=== PATIENT | female | born 1950 | race Caucasian/White ===

== ENCOUNTER 2020-03-09 09:52 | Outpatient (REF) | payer MEDICARE, SELFPAY ==
[2020-03-09 10:34] LABS: MANUAL DIFF FLAG NO
[2020-03-09 11:04] LABS: Alanine Aminotransferase 11 U/L (0-31); Albumin Level 3.6 g/dL (3.5-5.0); Alkaline Phosphatase 82 U/L (39-117); Anion Gap 12 (12-20); Aspartate Amino Transferase 17 U/L (5-31); Bilirubin Total 0.6 mg/dL (0.0-1.0); Blood Urea Nitrogen 16 mg/dL (9-16); Calcium 8.8 mg/dL (8.4-10.2); Carbon Dioxide 29 mmol/L (22-29); Chloride 107 mmol/L (96-108); Cholesterol 164 mg/dL; Estimated Glomerular Filt Rate > 60; Glucose Fasting 94 mg/dL (60-99); HDL Cholesterol 46 mg/dL; LDL Cholesterol Calculated 94 mg/dl; Potassium 4.6 mmol/l (3.3-5.1); Sodium 143 mmol/L (135-145); Total Protein 6.1 g/dL (6.5-8.0); Triglycerides 120 mg/dL
[2020-03-09 11:05] LABS: Basophils Percent Auto 0.6 % (0-2); Eosinophils Absolute Auto 0.2 X10*3/uL (0.0-0.4); Eosinophils Percent Auto 3.2 % (0-4); Hematocrit 43.5 % (37-47); Hemoglobin 13.7 g/dl (12.0-16.0); Imm Gran Abs Auto 0.02 X10*3/uL (0.00-0.03); Imm Gran Pct Auto 0.3 % (0.0-0.4); Lymphocytes Percent Auto 41.4 % (20-40); Mean Corpuscular HGB Conc 31.5 g/dl (31.0-35.0); Mean Corpuscular Hemoglobin 33.3 pg (27.0-33.0); Mean Corpuscular Volume 105.6 fL (80-98); Mean Platelet Volume 10.5 fL (9.4-12.3); Monocytes Absolute Auto 0.7 X10*3/uL (0.1-1.2); Monocytes Percent Auto 9.3 % (2-11); Neutrophils Absolute Auto 3.3 X10*3/uL (2.0-8.3); Neutrophils Percent Auto 45.2 % (45-73); Platelet Count 273 X10*3/uL (160-400); Red Blood Count 4.12 X10*6/uL (4.20-5.50); Red Cell Distribution Width 13.9 % (11.0-16.0); White Blood Count 7.2 X10*3/uL (4.8-10.8)
[2020-03-09 11:10] LABS: Glucose Urine UA NEG (NEG); Leukocyte Esterase Urine 1+ (NEG); Nitrite Urine NEG (NEG); PH 7.5 (5.0-8.0); Urine Blood NEG (NEG); Urine Ketones NEG (NEG); Urine Protein NEG (NEG-TRACE)
[2020-03-09 11:17] LABS: Appearance Urine HAZY; Color Urine YELLOW
[2020-03-09 11:24] LABS: TSH reflex Free T4 0.47 mIU/mL (0.32-4.0)
[2020-03-09 11:28] LABS: Bacteria Urine 1+ /LPF; Mucus Urine 1+ /LPF; RBC Urine 0 /HPF (0); Squamous Epithelial Cell Urine 1+ /LPF
[2020-03-09 11:32] LABS: Amorphous Sediment Urine 1+ /LPF
== END 2020-03-09 09:53 | disposition home or self-care (01) ==
LOC: HO.LAB 09:52
PROVIDERS: PCP Internal Medicine; Visit Provider Internal Medicine
DX: I10 Essential (primary) hypertension (principal); F17.200 Nicotine dependence, unspecified, uncomplicated; K21.9 Gastro-esophageal reflux disease without esophagitis; E78.00 Pure hypercholesterolemia, unspecified; I89.0 Lymphedema, not elsewhere classified; E66.9 Obesity, unspecified; R32 Unspecified urinary incontinence
CPT/HCPCS: 36415; 80053; 80061; 81001; 81003; 84443; 85025; 87086

== ENCOUNTER 2020-04-22 18:13 | Outpatient (REF) | payer MEDICARE, SELFPAY | END 2020-04-22 18:14 | disposition home or self-care (01) | LOC: HO.LNP 18:13 | PROVIDERS: Visit Provider Physician Assistant | DX: Z20.822 Contact with and (suspected) exposure to COVID-19 (principal) | CPT/HCPCS: U0003 ==

== ENCOUNTER 2020-10-15 13:05 | Outpatient (REF) | payer MEDICARE, SELFPAY ==
--- NOTE | ~2020-10-15 | MM_ITS ---
EXAMINATION: BONE DENSITOMETRY CLINICAL INDICATION: Asymptomatic menopausal state. COMPARISON: Baseline BD dated 03/16/2013. TECHNIQUE: Using a 591wed DXA System (software version: 13.1) manufactured by [employer], dual-energy x-ray absorptiometry was performed of the lumbar spine and left hip. The images are of good technical quality. Summary results are attached. FINDINGS: AP SPINE L1-L2 (excluding L3 and L4): The data of L1-L4 has been changed to exclude the L3 and L4 vertebral bodies, because degenerative changes at these levels may cause overestimation of lumbar spine density. Current: BMD 0.918 g/cm2, Z-score -0.9, T-score -2.1, osteopenia, 9.7% decrease from baseline (<5% change is not significant). Baseline: BMD 1.017 g/cm2. LEFT FEMUR, NECK: Current: BMD 0.721 g/cm2, Z-score -0.9, T-score -2.3, osteopenia. Baseline: BMD 0.800 g/cm2. LEFT FEMUR, TOTAL: Current: BMD 0.791 g/cm2, Z-score -0.5, T-score -1.7, osteopenia, 10.0% decrease from baseline (<5% change is not significant). Baseline: BMD 0.879 g/cm2. IDENTIFIED RISK FACTORS: Rheumatoid arthritis, tobacco use (current smoker). Early menopause, secondary osteoporosis, anticonvulsants. HISTORY OF FRACTURE: None listed. MEDICATIONS: Calcium supplements or multivitamin, vitamin D. MM/XR DEXA axial skeleton IMPRESSION: 1. DIAGNOSIS: Osteopenia based on the lowest T-score value of -2.3 in the femoral neck applying World Health Organization criteria. 2. 10-YEAR FRACTURE RISK PREDICTION, FRAX: Major osteoporotic fracture (clinical spine, forearm, hip or shoulder) 18.6%. Hip fracture 7.4%. 3. Treatment Recommendations: NOF guidelines recommend consideration for treatment in postmenopausal women and men age 50 and older presenting with the following: -A hip or vertebral (clinical or morphometric) fracture. -T-score less than or equal to -2.5 at the femoral neck or spine after appropriate evaluation to exclude secondary causes. -Low bone mass at the hip or spine and a 10-year fracture probability by FRAX of greater than or equal to 3% for hip fracture or greater than or equal to 20% for major osteoporotic fracture based on the [place] adapted WHO algorithm. 4. Other Recommendations: All treatment decisions require clinical judgment and consideration of individual patient factors, including patient preferences, comorbidities, previous drug use, risk factors not captured in the FRAX model (e.g. frailty, falls, vitamin D deficiency, increased bone turnover, interval significant decline in bone density) and possible under or overestimation of fracture risk by FRAX. Additional medical evaluation for secondary cause of low bone mineral density may be appropriate. FUTURE SCAN RECOMMENDATION: People with diagnosed cases of osteoporosis or at high risk for fracture should have regular bone mineral density tests. For patients eligible for Medicare, routine testing is allowed once every 2 years. The testing frequency can be increased to one year for patients who have rapidly progressing disease, those who are receiving or discontinuing medical therapy to restore bone mass, or have additional risk factors.
--- NOTE | ~2020-10-15 | MM_ITS ---
EXAMINATION: MM SCREENING DIGITAL BREAST TOMOSYNTHESIS, BILATERAL CLINICAL INFORMATION: Screening. Asymptomatic. The lifetime risk of breast cancer based on the Tyrer-Cuzick Model is 4%. COMPARISON: Mammography: 12/02/2017, 08/12/2016, 06/04/2015 TECHNIQUE: Digital breast tomosynthesis is performed in both the craniocaudal and mediolateral oblique views along with computer-aided detection (CAD). Synthesized 2D images are generated from the tomosynthesis. FINDINGS: There are scattered areas of fibroglandular density (ACR BI-RADS breast composition Category b). There are no significant masses, abnormal calcifications, or other abnormalities. There are 2 benign bulky coarse calcifications central inner left breast and a few other scattered benign round calcifications in the breasts as before. The axilla and skin contours are unremarkable. No significant changes. MM/MM tomosynthesis screening BI IMPRESSION: No mammographic evidence of malignancy. ASSESSMENT: BI-RADS 2: Benign RECOMMENDATION: Routine annual mammography screening. This patient's information was entered into a reminder system with a target due date for their next mammogram.
== END 2020-10-15 13:06 | disposition home or self-care (01) ==
LOC: HO.MAMMO 13:05
PROVIDERS: PCP Internal Medicine; Visit Provider Nurse Practitioner Family
DX: Z12.31 Encounter for screening mammogram for malignant neoplasm of breast (principal); Z13.820 Encounter for screening for osteoporosis; M85.80 Other specified disorders of bone density and structure, unspecified site; M06.9 Rheumatoid arthritis, unspecified; F17.200 Nicotine dependence, unspecified, uncomplicated; Z78.0 Asymptomatic menopausal state; Z79.899 Other long term (current) drug therapy
CPT/HCPCS: 77063; 77067; 77080

== ENCOUNTER → 2020-11-27 12:36 | Outpatient (BNVA) | payer MEDICARE, SELFPAY | PROVIDERS: PCP Internal Medicine; Visit Provider Student in an Organized Health Care Education/Training Program | DX: M17.0 Bilateral primary osteoarthritis of knee (principal) | CPT/HCPCS: 20610; 99212 ==

== ENCOUNTER 2021-06-18 12:12 | Outpatient (REF) | payer MEDICARE, SELFPAY ==
[2021-06-18 12:28] LABS: MANUAL DIFF FLAG NO
[2021-06-18 13:12] LABS: Basophils Absolute Auto 0.1 X10*3/uL (0.0-0.2); Basophils Percent Auto 0.7 % (0-2); Eosinophils Absolute Auto 0.2 X10*3/uL (0.0-0.4); Eosinophils Percent Auto 3.2 % (0-4); Hemoglobin 13.8 g/dl (12.0-16.0); Imm Gran Abs Auto 0.01 X10*3/uL (0.00-0.03); Imm Gran Pct Auto 0.1 % (0.0-0.4); Lymphocytes Absolute Auto 3.5 X10*3/uL (1.2-4.9); Lymphocytes Percent Auto 46.6 % (20-40); Mean Corpuscular HGB Conc 32.1 g/dl (31.0-35.0); Mean Corpuscular Hemoglobin 32.9 pg (27.0-33.0); Mean Corpuscular Volume 102.6 fL (80.0-98.0); Monocytes Absolute Auto 0.6 X10*3/uL (0.1-1.2); Monocytes Percent Auto 7.5 % (2-11); Neutrophils Absolute Auto 3.1 x10*3/uL (2.0-8.3); Neutrophils Percent Auto 41.9 % (45-73); Platelet Count 270 X10*3/uL (160-400); Red Blood Count 4.19 X10*6/uL (4.20-5.50); Red Cell Distribution Width 14.1 % (11.0-16.0); White Blood Count 7.5 X10*3/uL (4.8-10.8)
[2021-06-18 13:18] LABS: Appearance Urine CLOUDY; Color Urine YELLOW; Glucose Urine UA NEG (NEG); Leukocyte Esterase Urine 2+ (NEG); Nitrite Urine NEG (NEG); PH 6.5 (5.0-8.0); Specific Gravity - Urine 1.015 (1.005-1.025); UACC Culture Trigger YES; Urine Blood NEG (NEG); Urine Ketones NEG (NEG); Urine Protein NEG (NEG-TRACE)
[2021-06-18 13:25] LABS: Bacteria Urine 1+ /LPF; RBC Urine 0 /HPF (0); Squamous Epithelial Cell Urine 3+ /LPF; WBC Urine 50-75 /HPF (0-4)
[2021-06-18 14:00] LABS: Alanine Aminotransferase 16 U/L (0-31); Albumin Level 3.6 g/dL (3.5-5.0); Alkaline Phosphatase 100 U/L (39-117); Anion Gap 11 (12-20); Aspartate Amino Transferase 18 U/L (5-31); Bilirubin Total 0.4 mg/dL (0.0-1.0); Blood Urea Nitrogen 13 mg/dL (9-16); Calcium 9.4 mg/dL (8.4-10.2); Carbon Dioxide 26 mmol/L (22-29); Chloride 107 mmol/L (96-108); Cholesterol 205 mg/dL; Estimated Glomerular Filt Rate > 60; Glucose Fasting 103 mg/dL (60-99); HDL Cholesterol 50 mg/dL; LDL Cholesterol Calculated 139 mg/dl; Potassium 4.1 mmol/L (3.3-5.1); Sodium 140 mmol/L (135-145); Total Protein 6.2 g/dL (6.5-8.0); Triglycerides 80 mg/dL
[2021-06-18 14:06] LABS: TSH reflex Free T4 0.91 uIU/mL (0.32-4.0)
== END 2021-06-18 12:13 | disposition home or self-care (01) ==
LOC: HO.LAB 12:12
PROVIDERS: PCP Internal Medicine; Visit Provider Internal Medicine
DX: I89.0 Lymphedema, not elsewhere classified (principal); E78.00 Pure hypercholesterolemia, unspecified; I10 Essential (primary) hypertension; E66.9 Obesity, unspecified; E55.9 Vitamin D deficiency, unspecified; K21.9 Gastro-esophageal reflux disease without esophagitis; R32 Unspecified urinary incontinence
CPT/HCPCS: 36415; 80053; 80061; 81001; 82306; 84443; 85025; 87086

== ENCOUNTER 2021-07-07 08:44 | Outpatient (REF) | payer MEDICARE, SELFPAY ==
--- NOTE | ~2021-07-07 | US_ITS ---
EXAMINATION: US SOFT TISSUE HEAD/NECK CLINICAL INFORMATION: Localized swelling, mass and lump, neck. COMPARISON: Thyroid ultrasound favored 20 07/24/2015. TECHNIQUE: Linear transducer grayscale and color Doppler examination of the right lateral neck/submandibular at lateral jaw. FINDINGS: There is a complex cystic lesion in the right inferior parotid gland that measures 2.3 x 1.8 x 1.7 cm. This demonstrates a solid component with vascularity. There are adjacent lymph nodes, largest measuring 1.3 x 0.7 x 0.7 cm. Larger lymph nodes may demonstrate cortical thickening. The adjacent right submandibular gland is normal. US/US soft tiss head and/or neck IMPRESSION: 2.3 x 1.8 x 1.7 cm complex cystic lesion in the right inferior parotid gland and adjacent prominent lymph nodes. Follow-up CT or MRI with contrast for further evaluation should be considered. Parotid lesion would be amenable to ultrasound-guided fine-needle aspiration. Findings will be communicated by the [place] work flow software applications designer.
== END 2021-07-07 08:45 | disposition home or self-care (01) ==
LOC: HO.US 08:44
PROVIDERS: Visit Provider Internal Medicine
DX: R22.1 Localized swelling, mass and lump, neck (principal); K11.6 Mucocele of salivary gland
CPT/HCPCS: 76536

== ENCOUNTER 2021-07-29 10:59 | Outpatient (REF) | payer MEDICARE, SELFPAY ==
[2021-07-29 12:31] LABS: Blood Urea Nitrogen 18 mg/dL (9-16); Estimated Glomerular Filt Rate > 60
== END 2021-07-29 11:00 | disposition home or self-care (01) ==
LOC: HO.LAB 10:59
PROVIDERS: Internal Medicine; PCP Physician Assistant; Visit Provider Physician Assistant
DX: Z01.812 Encounter for preprocedural laboratory examination (principal)
CPT/HCPCS: 36415; 82565; 84520

== ENCOUNTER 2021-07-30 14:59 | Outpatient (REF) | payer MEDICARE, SELFPAY ==
--- NOTE | ~2021-07-30 | CT_ITS ---
EXAMINATION: CT SOFT TISSUE NECK WITH CONTRAST CLINICAL INFORMATION: Salivary gland disorder. Cystic lesion in the salivary gland. COMPARISON: Soft tissue neck ultrasound from 07/07/2021. Thyroid ultrasound from 05/29/2015. TECHNIQUE: Multidetector helical imaging was performed in the axial plane following the administration of 60 mL of Omnipaque 350 intravenous contrast. Multiple axial reformats and coronal/sagittal reconstructions were created the technologist workstation for review. This CT examination was performed using dose optimization techniques as appropriate, variously including the following: *Automated exposure control. *Adjustment of mA and/or kV according to patient size (this includes techniques or standardized protocols for targeted exams where dose is matched to indication/reason for exam; i.e. extremities or head). *Use of iterative reconstruction technique. DLP: 316 mGy-cm FINDINGS: There is a heterogeneous lesion within the tail of the superficial lobe of the right parotid gland that previously appeared cystic in nature on recent ultrasound evaluation, measuring 1.7 x 1.4 x 1.7 cm. There appears to be a poorly defined moderately thickened wall of this lesion. This lesion is positioned anterior and deep to the retromandibular vein. No significant cutaneous thickening or subcutaneous inflammation. No discrete fluid collection within the deep tissues of the neck. The premaxillary, retromaxillary, pterygopalatine fossa, orbital apical, parapharyngeal, and prelaryngeal adipose tissue is maintained. Normal appearance of the left parotid gland and bilateral submandibular glands. The thyroid gland is mildly heterogeneous in nature. There appears to be a poorly defined 1.5 cm hypoattenuating lesion in the lower pole the right thyroid lobe. Scattered subcentimeter lymph nodes bilaterally, none of which are pathologically enlarged or abnormally enhancing. No demonstrated focal lesion or abnormal enhancement within the intrinsic tissues of the tongue or floor of mouth. Normal mucosal contours of the pharynx and larynx without abnormal enhancement. Normal appearance of the hyoid bone, thyroid cartilage, or cartilaginous trachea. The airways remains widely patent. No radiopaque foreign bodies. The atlantooccipital and atlantoaxial articulations remain well aligned. Reversal the normal cervical lordosis centered on C6. Moderate to advanced degenerative disc disease at C6-C7. Mild to moderate degenerative disc disease at all additional cervical levels. No evidence of acute fracture or subluxation of the cervical spine. The vertebral body heights are largely maintained. There is no prevertebral soft tissue swelling. Normal opacification of the cervical arterial and venous structures. The visualized portion of the skull base is without significant abnormalities. Mild mucosal thickening of the paranasal sinuses. The mastoid air cells and middle ear cavities are clear. Odontogenic enamel erosions of the remaining mandibular teeth. CT Upper Chest: The visualized lung apices and upper mediastinum are within normal limits. CT/CT soft tissue neck w con IMPRESSION: 1. Redemonstrated partially cystic 1.7 cm lesion within the tail of the superficial lobe of the right parotid gland. This may represent a primary salivary gland neoplasm. As previously noted, tissue sampling may help further characterize. 2. There appears to be a 1.5 cm poorly defined hypoattenuating lesion in the lower pole of the right thyroid lobe. This may be further characterized with thyroid ultrasound. 3. No cervical lymphadenopathy. No additional focal lesion or collection within the soft tissues of the neck.
== END 2021-07-30 15:00 | disposition home or self-care (01) ==
LOC: HO.CT 14:59
PROVIDERS: PCP Internal Medicine; Visit Provider Internal Medicine
DX: K11.8 Other diseases of salivary glands (principal)
CPT/HCPCS: 70491

== ENCOUNTER 2021-08-04 15:08 | Outpatient (REF) | payer MEDICARE, SELFPAY ==
--- NOTE | ~2021-08-04 | US_ITS ---
EXAMINATION: US THYROID CLINICAL INFORMATION: Other specified disorders of thyroid. COMPARISON: None. TECHNIQUE: Linear transducer grayscale and color Doppler examination with attention to the region of the thyroid. FINDINGS: SIZE: Measurements of the thyroid lobes and nodules are given in sagittal, anteroposterior and transverse dimensions, respectively. Right Thyroid Lobe: 4.6 x 2.2 x 2.4 cm, volume 12.9 mL. Previously, it measured 4.4 x 1.8 x 2.0 cm and volume 8.2 mL. Parenchyma: The gland echotexture is homogeneous. Thyroid vascularity is normal. Left Thyroid Lobe: 4.7 x 2.1 x 1.9 cm, volume 9.6 mL. Previously, it measured 4.6 x 2.1 x 1.8 x 9.3 cm. Parenchyma: The gland echotexture is normal. Thyroid vascularity is normal. Isthmus: 1.1 cm in maximum AP dimension. Previously, it measured 0.4 Estimated total number of nodules greater than or equal to 1 cm: 2. [employer] nodules are described as follows: 1. Location: Right midpole. Size: 0.5 x 0.3 x 0.4 cm, volume 0.03 mL. Nodule characteristics: Composition: Solid (2). Echogenicity: Hypoechoic. Shape: Wider, 0. Margins: Smooth (0). Echogenic Foci: None (0). ACR TI-RADS total points: 4. ACR TI-RADS category: 4. 2. Location: Right lower pole. Size: 1.4 x 1.2 x 1.4 cm, volume 1.2 mL. Previously, it measured 1.1 x 0.9 x 0.9 cm and volume 0.5 mL. Nodule characteristics: Composition: Solid (2). Echogenicity: Hyperechoic (1). Shape: Not taller. Margins: Smooth (0). Echogenic Foci: None (0). ACR TI-RADS total points: 4. ACR TI-RADS category: 4. 3. Location: Left upper pole. Size: 0.8 x 0.5 x 0.7 cm, volume 0.1 mL. Nodule characteristics: Composition: Solid (2). Echogenicity: Hypoechoic (2). Shape: Wider. Margins: Smooth (0). Echogenic Foci: None (0). ACR TI-RADS total points: 4. ACR TI-RADS category: 4. There is a simple cyst in the right lobe less than 1 cm. NODES: No lymphadenopathy is seen in the tissue surrounding the thyroid gland. US/US thyroid IMPRESSION: At least 3 nodules visualized in the right and left lobe. Al of these nodules have a TI-RADS categorization of 4. Recommend monthly followup in one year. ACR TI-RADS RECOMMENDATION REFERENCE: Ultrasound-guided fine-needle aspiration, followup ultrasound, no further follow up. * TR1 (0 point) and TR 2 (2 points): No FNA or follow up * TR3 (3 points): FNA if more than Or equal to 2.5 cm in maximum dimension, followup ultrasound in 1, 3 and 5 years if 1.5 to 2.4 cm in maximum dimension. * TR4 (4-6 points): FNA if more than or equal to 1.5 cm in maximum dimension, followup ultrasound in 1, 2, 3 and 5 years if 1 to 1.4 cm in maximum dimension. * TR5 (more than or equal to 7 points): FNA if more than or equal to 1 cm in maximum dimension, followup ultrasound every year for 5 years if 0.5 to 0.9 cm in maximum dimension. * TR3, TR4 or TR5 nodules that are below the size threshold for follow up receive no follow up.
== END 2021-08-04 15:09 | disposition home or self-care (01) ==
LOC: HO.US 15:08
PROVIDERS: Visit Provider Internal Medicine
DX: R22.1 Localized swelling, mass and lump, neck (principal); E07.89 Other specified disorders of thyroid
CPT/HCPCS: 76536

== ENCOUNTER 2021-08-19 11:04 | Outpatient (REF) | payer MEDICARE, SELFPAY ==
--- NOTE | ~2021-08-19 | US_ITS ---
EXAMINATION: ULTRASOUND-GUIDED RIGHT PAROTID TAIL BIOPSY CLINICAL INFORMATION: Complex cystic area right parotid gland tail. COMPARISON: None TECHNIQUE: Following explaining ultrasound-guided right parotid gland biopsy procedure, benefits and risk, a written consent was obtained. Patient was placed in left lateral decubitus view with neck turning to left side and preliminary ultrasound imaging was obtained through the right parotid gland. An optimal site was selected and marked on the skin. The marked site was cleaned and draped in usual sterile manner. 1% lidocaine was administered at puncture site. A 25-gauge needle attached to syringe was inserted through the skin into the right parotid gland mass under sterile ultrasound guidance. A 5 pass fine-needle biopsy aspiration was performed. Complete hemostasis was achieved at puncture site. Patient tolerated procedure well. FINDINGS: On preliminary ultrasound guided there is a cystic and solid mass in the right parotid tail similar to previous CT neck exam 07/30/2021. A 5 pass biopsy aspiration of right parotid tail mass was performed. The biopsy was sent to cytology for further imaging. Patient tolerated procedure extremely well. US/US biopsy parotid gland IMPRESSION: Successful ultrasound-guided 5 pass fine-needle biopsy/aspiration of right parotid tail mass was performed.
== END 2021-08-19 11:05 | disposition home or self-care (01) ==
LOC: HO.US 11:04
PROVIDERS: Radiology Diagnostic Radiology; Visit Provider Internal Medicine
DX: K11.8 Other diseases of salivary glands (principal); R22.1 Localized swelling, mass and lump, neck
CPT/HCPCS: 36415; 42400; 88172; 88173; 88177; 88184; 88185; 88305

== ENCOUNTER 2021-08-26 14:07 | Outpatient (REF) | payer MEDICARE, SELFPAY | END 2021-08-26 14:08 | disposition home or self-care (01) | LOC: HO.LAB 14:07 | PROVIDERS: Visit Provider Obstetrics & Gynecology | DX: N90.89 Other specified noninflammatory disorders of vulva and perineum (principal) | CPT/HCPCS: 56605; 88305; 88312; 88342; 99202 ==

== ENCOUNTER → 2021-09-02 14:36 | Outpatient (BNVA) | payer MEDICARE, SELFPAY | PROVIDERS: PCP Internal Medicine; Visit Provider Obstetrics & Gynecology | DX: C51.9 Malignant neoplasm of vulva, unspecified (principal) | CPT/HCPCS: 99212 ==

== ENCOUNTER → 2022-02-11 13:37 | Outpatient (BNVA) | payer MEDICARE, SELFPAY | PROVIDERS: PCP Internal Medicine; Referring Provider Internal Medicine; Visit Provider Student in an Organized Health Care Education/Training Program | DX: M17.0 Bilateral primary osteoarthritis of knee (principal); R76.8 Other specified abnormal immunological findings in serum | CPT/HCPCS: 20610; 99212 ==

== ENCOUNTER 2022-09-10 11:11 | Outpatient (REF) | payer MEDICARE, SELFPAY ==
[2022-09-10 11:34] LABS: MANUAL DIFF FLAG NO
[2022-09-10 12:39] LABS: Basophils Absolute Auto 0.1 X10*3/uL (0.0-0.2); Basophils Percent Auto 0.8 % (0-2); Eosinophils Absolute Auto 0.2 X10*3/uL (0.0-0.4); Eosinophils Percent Auto 3.3 % (0-4); Hematocrit 43.8 % (37.0-47.0); Imm Gran Abs Auto 0.02 X10*3/uL (0.00-0.03); Imm Gran Pct Auto 0.3 % (0.0-0.4); Lymphocytes Absolute Auto 2.7 X10*3/uL (1.2-4.9); Lymphocytes Percent Auto 42.6 % (20-40); Mean Corpuscular Hemoglobin 33.2 pg (27.0-33.0); Mean Corpuscular Volume 103.8 fL (80.0-98.0); Mean Platelet Volume 10.1 fL (9.4-12.3); Monocytes Absolute Auto 0.5 X10*3/uL (0.1-1.2); Monocytes Percent Auto 7.6 % (2-11); Neutrophils Absolute Auto 2.9 x10*3/uL (2.0-8.3); Neutrophils Percent Auto 45.4 % (45-73); Platelet Count 285 X10*3/uL (160-400); Red Blood Count 4.22 X10*6/uL (4.20-5.50); Red Cell Distribution Width 14.6 % (11.0-16.0); White Blood Count 6.3 X10*3/uL (4.8-10.8)
[2022-09-10 12:58] LABS: Triglycerides 78 mg/dL
[2022-09-10 13:02] LABS: Alanine Aminotransferase 11 U/L (0-31); Albumin Level 3.6 g/dL (3.5-5.0); Alkaline Phosphatase 104 U/L (39-117); Anion Gap 10 (12-20); Aspartate Amino Transferase 16 U/L (5-31); Bilirubin Total 0.7 mg/dL (0.0-1.0); Blood Urea Nitrogen 12 mg/dL (9-16); Carbon Dioxide 27 mmol/L (22-29); Chloride 109 mmol/L (96-108); Estimated Glomerular Filt Rate > 60; Glucose Random 94 mg/dL (60-115); Potassium 4.2 mmol/L (3.3-5.1); Sodium 142 mmol/L (135-145); Total Protein 6.1 g/dL (6.5-8.0)
[2022-09-11 08:13] LABS: HBsAGNum1 0.29 S/CO (0.00-0.99); HIV AB/AG Nonreactive (Nonreactive); HIV Num 1 0.06 S/CO (0.00-0.99); Hepatitis B Surface Antigen Negative (Negative); ~HepC Num1 0.09 S/CO (0.00-0.79); ~Hepatitis C Antibody Nonreactive (Nonreactive)
[2022-09-13 00:49] LABS: TS Negative Control Passed; TS Panel A 0; TS Panel B 1; TS Positive Control Passed; TSpotTB Negative (Negative)
== END 2022-09-10 11:12 | disposition home or self-care (01) ==
LOC: HO.LAB 11:11
PROVIDERS: PCP Internal Medicine; Visit Provider Physician Assistant Medical
DX: Z11.4 Encounter for screening for human immunodeficiency virus [HIV] (principal); Z11.1 Encounter for screening for respiratory tuberculosis; L40.0 Psoriasis vulgaris; Z79.899 Other long term (current) drug therapy
CPT/HCPCS: 36415; 80053; 84478; 85025; 86481; 86803; 87340; 87389

== ENCOUNTER 2022-09-30 08:55 | Outpatient (REF) | payer MEDICARE, SELFPAY ==
[2022-09-30 09:54] LABS: Alanine Aminotransferase 13 U/L (0-31); Albumin Level 3.4 g/dL (3.5-5.0); Alkaline Phosphatase 95 U/L (39-117); Anion Gap 8 (12-20); Aspartate Amino Transferase 18 U/L (5-31); Bilirubin Total 0.6 mg/dL (0.0-1.0); Blood Urea Nitrogen 11 mg/dL (9-16); Calcium 9.1 mg/dL (8.4-10.2); Carbon Dioxide 26 mmol/L (22-29); Chloride 106 mmol/L (96-108); Cholesterol 242 mg/dL; Estimated Glomerular Filt Rate > 60; Glucose Fasting 102 mg/dL (60-99); HDL Cholesterol 50 mg/dL; LDL Cholesterol Calculated 175 mg/dl; Potassium 4.3 mmol/L (3.3-5.1); Sodium 136 mmol/L (135-145); Total Protein 6.3 g/dL (6.5-8.0); Triglycerides 88 mg/dL
[2022-09-30 10:09] LABS: Appearance Urine Clear; Color Urine Yellow; Glucose Urine UA Negative (Negative); Leukocyte Esterase Urine Moderate (2+) (Negative); Nitrite Urine Negative (Negative); PH 8.5 (5.0-9.0); Specific Gravity - Urine 1.015 (1.005-1.025); UMIC TRIGGER UACC YES; Urine Blood Negative (Negative); Urine Ketones Negative (Negative); Urine Protein Trace mg/dL (Neg-Trace)
[2022-09-30 10:11] LABS: TSH reflex Free T4 0.59 uIU/mL (0.32-4.0); Vitamin D 25-OH Total 10.4 ng/mL (>30)
[2022-09-30 10:15] LABS: Bacteria Urine Trace (None Seen); Hyaline Casts Urine 0-2 /LPF (0-2); UACC Culture Trigger YES; WBC Urine >50 /HPF (0-5)
== END 2022-09-30 08:56 | disposition home or self-care (01) ==
LOC: HO.LAB 08:55
PROVIDERS: PCP Internal Medicine; Visit Provider Internal Medicine
DX: E78.00 Pure hypercholesterolemia, unspecified (principal); E55.9 Vitamin D deficiency, unspecified; I10 Essential (primary) hypertension; R82.90 Unspecified abnormal findings in urine
CPT/HCPCS: 36415; 80053; 80061; 81001; 81003; 82306; 84443; 87086

== ENCOUNTER 2023-01-05 10:57 | Outpatient (AMB) | payer MEDICARE, SELFPAY ==
[2023-01-05 11:02] VITALS: BP 136/78; PULSE 111; TEMP 37.3; O2SAT 95; BMI 37.5
--- NOTE | 2023-01-05 11:02 | MHC.OFFVIS ---
Intake Vital Signs 01/05/23 11:02 Height 5 ft Weight 191 lb 12.835 oz BMI 37.5 BP 136/78 Blood Pressure Location Lt brachial Position Sitting Pulse 111 H Pulse Source Pulse Oximeter Temp 99.1 F Temp Source Skin Pulse Oximetry (%) 95 Intake Visit Reasons: Bilateral knee/Inj Intake Note: Pt seen today for OA follow up. She was last seen on 02/11/22. C/o bl knee pain, left is worse. Pain radiates up the leg; requesting injection. 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 Accompanied by: Self / Same As Patient Allergies doxycycline Allergy (Unknown, Verified 01/05/23 11:11) Unknown prednisone Allergy (Unknown, Verified 01/05/23 11:11) Unknown Medication List - Last Reconciled 01/05/23 by Vincent Vizcarra MD albuterol sulfate 90 mcg/actuation 2 puffs inhalation Q6H PRN atorvastatin 20 mg PO DAILY benzonatate 100 mg PO BID-TID PRN 10 days cholecalciferol (vitamin D3) 25 mcg PO DAILY diclofenac sodium 1% (Voltaren Arthritis Pain) 4 grams topical QID fluticasone propionate 50 mcg/actuation 1 spray intranasal DAILY PRN furosemide 40 mg PO QAM gabapentin 100 mg PO BID hydrocortisone 2.5% 1 appl topical BID PRN hydroxyzine HCl 25 mg PO Q6H PRN lisinopril 20 mg PO DAILY 90 days loratadine 10 mg PO DAILY PRN mupirocin 2% topical PER PKG DIR omeprazole 20 mg PO DAILY ropinirole 2 mg PO BEDTIME PRN sertraline 25 mg PO DAILY PRN tizanidine 2 mg PO BEDTIME tramadol 50 mg PO Q6H PRN 15 days triamcinolone acetonide 0.1% 1 appl topical DAILY PRN HPI HPI Comments History of Present Illness Details 72-year-old female with bilateral knee osteoarthritis returns for follow-up. States that bilateral knee steroid injection done 02/2022 provided good relief until about a month ago when she started having more pain and stiffness of both knees. Worse on the left. She is requesting repeat injection today Initial history: This is a 71-year-old female with a past medical history of COPD, vulval cancer s/p resection with no chemo or radiotherapy required, psoriasis, lymphedema, hypertension who presents for evaluation of bilateral knee pain. Of Note patient has a positive anti CCP. Patient had bilateral knee intra-articular steroid injection by Dr. Álvarez in the past every 6 months. Last injection was November of 2020. Injections usually last about 6 months. She states she had about 4 injections so far. Patient states that she has bilateral and stiffness especially with driving, sometimes her fingers lock up. Her psoriasis has not been well controlled recent with more lesions on her face and elbows. She is on topical steroids. [facility] Medical History History of cancer of vulva Psoriasis Depression Lymphedema due to chronic inflammation Morbid obesity with BMI of 40.0-44.9, adult Restless leg syndrome Vitamin D deficiency Urinary incontinence Smoker COPD (chronic obstructive pulmonary disease) GERD without esophagitis Pure hypercholesterolemia Benign essential hypertension Surgical History History of vulvectomy Family History Father No problems noted. Mother Diabetes Sister No problems noted. 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 Cognitive needs: No Hearing needs: No Vision needs: Yes Review of Systems Musc Details: Bilateral knee pain Reports stiffness Physical Exam Vital Signs: Last Vital Signs Temp 99.1 F 01/05/23 11:02 Pulse 111 H 01/05/23 11:02 BP 136/78 01/05/23 11:02 Pulse Ox 95 01/05/23 11:02 BMI result Body Mass Index 37.5 Const General: cooperative, healthy appearing, comfortable and no acute distress Nutritional Appearance: obese morbidly obese Orientation/consciousness: patient oriented x3 Limitations: no limitations HEENT Head: Yes normocephalic and Yes atraumatic Resp Effort & Inspection: normal respiratory effort and able to speak in complete sentences Skin Other: Psoriatic patches on face, elbows, behind both ears Neuro General: patient oriented x3 Extrem Other: Knees: Bilateral knee warmth. Bilateral tenderness at the medial joint line Office Procedures Joint Injection/Drain Joint Injection/Drain Primary Site: right knee Secondary Site: left knee Prep: site was prepped using sterile technique and ethochloride spray was applied Injected: 40 mg of, Kenalog and other (2 mL of 1% lidocaine) Approach Used: medial parapatellar Procedure: The patient tolerated the procedure well and but had some pain with the injection Coding Details: With the patient's consent the left knee was prepped with ChloraPrep and alcohol. The skin was anesthetized with 2 cc of 1% lidocaine. The knee was then injected with 40 mg of triamcinolone and 1 cc of I % lidocaine. The patient tolerated the procedure with no immediate adverse effects. With the patient's consent the right knee was prepped with ChloraPrep and alcohol. The skin was anesthetized with 2 cc of 1% lidocaine. The knee was then injected with 40 mg of triamcinolone and 1 cc of I % lidocaine. The patient tolerated the procedure with no immediate adverse effects. - Large joint (X2) Procedure code (CPT) selection complete Assessment & Plan Assessment & Plan (1) Osteoarthritis of left knee: Code(s): M17.12 - Unilateral primary osteoarthritis, left knee Qualifiers: Osteoarthritis type: primary Qualified Code(s): M17.12 - Unilateral primary osteoarthritis, left knee Plan: 72-year-old female with bilateral knee osteoarthritis presents for follow-up. Both knees were injected February of 2022 with about 10 months relief. Patient requesting repeat injections today. With patient's consent both knees were injected with Kenalog today Follow-up as needed (2) Osteoarthritis of right knee: Code(s): M17.11 - Unilateral primary osteoarthritis, right knee Qualifiers: Osteoarthritis type: primary Qualified Code(s): M17.11 - Unilateral primary osteoarthritis, right knee Orders: Orders AMB Joint Injection/Aspiration Today M17.11 - Unilateral primary osteoarthritis, right knee, M17.12 - Unilateral primary osteoarthritis, left knee Coding Level of Care Code Est Pt Level 3 (61967) Diagnoses Primary osteoarthritis of left knee M17.12 Osteoarthritis type: primary Primary osteoarthritis of right knee M17.11 Osteoarthritis type: primary CPT Codes Coding - 18367 Large joint: 96934 - Large joint ([id number])
== END 2023-01-05 11:43 | disposition home or self-care (01) ==
LOC: HO.RHE 10:57
PROVIDERS: PCP Internal Medicine; Visit Provider Student in an Organized Health Care Education/Training Program
DX: M17.0 Bilateral primary osteoarthritis of knee (principal)
CPT/HCPCS: 20610; 99213

== ENCOUNTER → 2023-01-05 10:57 | Outpatient (BNVA) | payer MEDICARE, SELFPAY | PROVIDERS: PCP Internal Medicine; Visit Provider Student in an Organized Health Care Education/Training Program | DX: M17.0 Bilateral primary osteoarthritis of knee (principal) | CPT/HCPCS: 20610; 99212; J3301 ==

== ENCOUNTER 2023-01-14 09:56 | Outpatient (AMB) | payer MEDICARE, SELFPAY ==
[2023-01-14 10:05] VITALS: BP 140/70; PULSE 77; O2SAT 95; BMI 37.1
--- NOTE | 2023-01-14 10:05 | MHC.PC.OV ---
Vital Signs 01/14/23 10:05 Height 5 ft Weight 190 lb BMI 37.1 BP 140/70 H Blood Pressure Location Lt brachial Position Sitting Pulse 77 Pulse Source Pulse Oximeter Pulse Oximetry (%) 95 Oxygen Delivery Method Room Air Intake Visit Reasons: Follow up on anxiety/lab results Center Consultant Required: No Allergies doxycycline Allergy (Unknown, Verified 01/14/23 10:13) Unknown prednisone Allergy (Unknown, Verified 01/14/23 10:13) Unknown Medication List - Last Reconciled 01/14/23 by RANDY Botello albuterol sulfate 90 mcg/actuation 2 puffs inhalation Q6H PRN atorvastatin 20 mg PO DAILY cholecalciferol (vitamin D3) 25 mcg PO DAILY diclofenac sodium 1% (Voltaren Arthritis Pain) 4 grams topical QID fluticasone propionate 50 mcg/actuation 1 spray intranasal DAILY PRN furosemide 40 mg PO QAM gabapentin 100 mg PO BID hydrocortisone 2.5% 1 appl topical BID PRN hydroxyzine HCl 25 mg PO Q6H PRN lisinopril 20 mg PO DAILY 90 days loratadine 10 mg PO DAILY PRN mupirocin 2% topical PER PKG DIR omeprazole 20 mg PO DAILY ropinirole 2 mg PO BEDTIME PRN sertraline 25 mg PO DAILY PRN tizanidine 2 mg PO BEDTIME tramadol 50 mg PO Q6H PRN 15 days triamcinolone acetonide 0.1% 1 appl topical DAILY PRN Tobacco use date assessed: 01/14/23 Dental Screening Dental Screen Date: 01/14/23 Did you have a dental visit in the last 12 months?: Yes Did you have a dental problem in the last 6 months where you did not have access to dental care?: No Was dental information given to patient?: Patient has dentist HPI Follow up on anxiety/lab results HPI Details Patient is a 72-year-old female who presents today to follow-up on anxiety. Patient of Dr. Woods, last visit 02/2022. Medical history significant for hypertension, hypercholesterolemia, GERD, COPD, obesity, depression, vulvar cancer - followed by gynecology Oncology Dr. Person every 6 months, anxiety. Recent blood work from 09/2022 reviewed with the patient, patient is due for repeat blood work. Patient reports anxiety and depression, she reports feeling nervous and starts crying. Denies SI or HI. Her sister is sick and patient lost her job 11/2022. Patient denies shortness of breath or chest pain. Patient reports that she will think about counseling, declines at this time. [facility] Medical History History of cancer of vulva Psoriasis Depression Lymphedema due to chronic inflammation Morbid obesity with BMI of 40.0-44.9, adult Restless leg syndrome Vitamin D deficiency Urinary incontinence Smoker COPD (chronic obstructive pulmonary disease) GERD without esophagitis Pure hypercholesterolemia Benign essential hypertension Surgical History History of vulvectomy Family History Father No problems noted. Mother Diabetes Sister No problems noted. 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 1. Little interest or pleasure in doing things: several days 2. Feeling down, depressed, or hopeless: not at all 3. Trouble falling or staying asleep, or sleeping too much: nearly every day 4. Feeling tired or having little energy: not at all 5. Poor appetite or overeating: not at all 6. Feeling bad about yourself - or that you are a failure or have let yourself or your family down: not at all 7. Trouble concentrating on things, such as reading the newspaper or watching television: not at all 8. Moving or speaking so slowly that other people could have noticed. Or the opposite - being so fidgety or restless that you have been moving around a lot more than usual: not at all 9. Thoughts that you would be better off or of hurting yourself in some way: not at all Total score: 4 Depression Screening Interpretation: Negative Depression Screening Done: Yes 89291 - PHQ-9 Billing: Yes Source: Developed by Drs. Merrill Wynn, Woo Barber and colleagues, with an educational yash from [employer]. Thrive Questionnaire Date Thrive assessed: 10/17/21 TIO-7 AMB Questionnaire TIO-7 Date TIO - 7 assessed: 01/14/23 Feeling nervous, anxious, or on edge: 1 = Several days Not being able to stop or control worryin = Nearly every day Worrying too much about different things: 3 = Nearly every day Trouble relaxin = Several days Being so restless that it is hard to sit still: 0 = Not at all Becoming easily annoyed or irritable: 1 = Several days Feeling afraid as if something awful might happen: 1 = Several days Total TIO-7 score (0-4 normal; 5-9 mild; 10-14 moderate; 15-21 severe): 10 Source: Developed by Drs. Merrill Wynn, Amanda Monge, Woo Paredes and colleagues, with an educational yash from [employer]. TIO-7 Assessment Billing TIO-7 Assessment Tool: TIO-7 Assessment 49304 Review of Systems Const Denies body aches, Denies chills, Denies fever(s) and Denies headache(s) ENT Denies dizziness, Denies otalgia, Denies headache(s), Denies nasal discharge, Denies sinus pain and Denies sore throat Card Denies chest pain, Denies edema, Denies lightheadedness and Denies dyspnea Resp Denies dyspnea and Denies wheezing GI Denies abdominal pain Denies dysuria Musc Denies myalgias and Reports arthralgias Skin/Breast Denies rash Neuro Denies dizziness and Denies headache(s) Psych Reports anxiety and Reports depression Aller/Immun Denies wheezing Physical exam (Primary Care) Vital Signs: Last Vital Signs Pulse 77 01/14/23 10:05 BP 140/70 H 01/14/23 10:05 Pulse Ox 95 01/14/23 10:05 Oxygen Delivery Method Room Air 01/14/23 10:05 BMI result Body Mass Index 37.1 Tobacco/Smoking Status: Tobacco use Status Tobacco use date assessed 01/14/23 01/14/23 10:10 Patient Tobacco Use Status Current everyday Tobacco 01/14/23 10:10 e-Cigarette/Vaping Use Never Used 01/14/23 10:10 PHQ-9: PHQ-9 Score PHQ-9: Total score 4 01/14/23 10:20 Depression Screening Interpretation: Negative Thrive Assessment: Date of Thrive Assessment Date Thrive assessed 10/17/21 01/14/23 10:10 Const General: cooperative and no acute distress Orientation/consciousness: patient oriented x3 HENMT Head: Yes normocephalic and Yes atraumatic Mouth: oropharynx normal and moist mucous membranes Throat: Yes posterior oropharynx normal Eyes General: appearance normal, both eyes and all related structures Neck Neck: Yes normal visual inspection, Yes full ROM and Yes no lymphadenopathy Resp Effort & Inspection: normal respiratory effort and able to speak in complete sentences Auscultation: clear to auscultation bilaterally, no crackles, no rales, no rhonchi and no wheezes Cardio Rate: regular rate Rhythm: regular rhythm Heart sounds: S1 normal heart sound present and S2 normal heart sound present GI Auscultation: normal bowel sounds Neuro General: patient oriented x3 Gait exam (Neuro): Normal gait present Extrem General: Yes full ROM Assessment and Plan Assessment & Plan (1) Anxiety: Code(s): F41.9 - Anxiety disorder, unspecified Plan: Patient was on sertraline in the past, she does not remember when the last time she took sertraline Patient is to restart sertraline 25 mg daily-possible adverse reactions reviewed with the patient and when to notify provider Start hydroxyzine 25 mg at bedtime p.r.n.-educated about drowsiness Patient like to hold off on counseling referral (2) Vulvar cancer: Comment: Bx done 08/26/21 - Invasive squamous cell carcinoma, moderately differentiated; positive margins Code(s): C51.9 - Malignant neoplasm of vulva, unspecified Plan: Continue to follow-up with gynecology Oncology Dr. Ko every 6 months per patient (3) Depression: Code(s): F32.9 - Major depressive disorder, single episode, unspecified Qualifiers: Depression Type: unspecified Qualified Code(s): F32.9 - Major depressive disorder, single episode, unspecified Plan: Same as above (4) Pure hypercholesterolemia: Comment: Continue current treatment. Code(s): E78.00 - Pure hypercholesterolemia, unspecified Plan: LDL 175 09/2022, goal less than 130 Reinforced low-cholesterol diet Continue atorvastatin 20 mg daily Patient is due for blood work (5) Benign essential hypertension: Code(s): I10 - Essential (primary) hypertension Plan: Goal BP equal or less than 140/90 Continue furosemide and lisinopril Low-sodium diet and weight loss Plan Follow-up with PCP in 3 months or sooner as needed Orders: Orders Lipid Panel 01/14/23 I10 - Essential (primary) hypertension Vitamin D 25-OH Total 01/14/23 F41.9 - Anxiety disorder, unspecified Comprehensive [place]. Panel Fast 01/14/23 I10 - Essential (primary) hypertension Medications: Changed From sertraline 25 mg PO DAILY PRN F32.9 - Major depressive disorder, single episode, unspecified To sertraline 25 mg PO DAILY 30 tabs 2RF F32.9 - Major depressive disorder, single episode, unspecified From hydroxyzine HCl 25 mg PO Q6H PRN 20 tabs 0RF itching F41.9 - Anxiety disorder, unspecified To hydroxyzine HCl 25 mg PO BEDTIME PRN 20 tabs 0RF anxiety F41.9 - Anxiety disorder, unspecified Coding Level of Care Code Est Pt Level 4 (16784) Diagnoses Anxiety F41.9 Vulvar cancer C51.9 Depression, unspecified depression type F32.9 Depression Type: unspecified Pure hypercholesterolemia E78.00 Benign essential hypertension I10 Additional Codes TIO-7 Assessment Billing - TIO-7 Assessment Tool: TIO-7 Assessment 42379 ([id number])
== END 2023-01-14 10:30 | disposition home or self-care (01) ==
PROVIDERS: PCP Internal Medicine; Visit Provider Nurse Practitioner Family
DX: F41.9 Anxiety disorder, unspecified (principal); C51.9 Malignant neoplasm of vulva, unspecified; J44.9 Chronic obstructive pulmonary disease, unspecified; F32.9 Major depressive disorder, single episode, unspecified; E78.00 Pure hypercholesterolemia, unspecified; I10 Essential (primary) hypertension
CPT/HCPCS: 99214

== ENCOUNTER 2023-07-13 15:34 | Outpatient (REF) | payer MEDICARE, SELFPAY ==
[2023-07-13 15:48] LABS: MANUAL DIFF FLAG NO
[2023-07-13 17:09] LABS: Basophils Absolute Auto 0.1 X10*3/uL (0.0-0.2); Basophils Percent Auto 0.7 % (0-2); Eosinophils Absolute Auto 0.2 X10*3/uL (0.0-0.4); Eosinophils Percent Auto 3.1 % (0-4); Hematocrit 42.4 % (37.0-47.0); Imm Gran Abs Auto 0.01 X10*3/uL (0.00-0.03); Imm Gran Pct Auto 0.1 % (0.0-0.4); Lymphocytes Absolute Auto 2.8 X10*3/uL (1.2-4.9); Mean Corpuscular Hemoglobin 34.2 pg (27.0-33.0); Mean Corpuscular Volume 103.7 fL (80.0-98.0); Mean Platelet Volume 10.7 fL (9.4-12.3); Monocytes Absolute Auto 0.6 X10*3/uL (0.1-1.2); Monocytes Percent Auto 8.3 % (2-11); Neutrophils Absolute Auto 3.4 x10*3/uL (2.0-8.3); Neutrophils Percent Auto 47.8 % (45-73); Platelet Count 295 X10*3/uL (160-400); Red Blood Count 4.09 X10*6/uL (4.20-5.50); Red Cell Distribution Width 13.2 % (11.0-16.0)
[2023-07-13 17:20] LABS: Estimated Average Glucose 111 mg/dL; Hemoglobin A1c % 5.5 % (<6.0)
[2023-07-13 17:46] LABS: Alanine Aminotransferase 10 U/L (0-31); Albumin Level 3.5 g/dL (3.5-5.0); Alkaline Phosphatase 83 U/L (39-117); Anion Gap 11 (12-20); Aspartate Amino Transferase 13 U/L (5-31); Bilirubin Total 0.5 mg/dL (0.0-1.0); Blood Urea Nitrogen 13 mg/dL (9-16); Calcium 8.9 mg/dL (8.4-10.2); Carbon Dioxide 27 mmol/L (22-29); Chloride 109 mmol/L (96-108); Estimated Glomerular Filt Rate > 60; Glucose Random 100 mg/dL (60-115); Potassium 3.8 mmol/L (3.3-5.1); Sodium 143 mmol/L (135-145); Total Protein 6.2 g/dL (6.5-8.0)
[2023-07-13 18:03] LABS: TSH reflex Free T4 0.51 uIU/mL (0.32-4.0); Vitamin D 25-OH Total 8.2 ng/mL (>30)
[2023-07-13 18:05] LABS: Folate 3.5 ng/mL (> or = 4.0); Vitamin B12 218 pg/mL (200-900)
== END 2023-07-13 15:35 | disposition home or self-care (01) ==
LOC: HO.LAB 15:34
PROVIDERS: PCP Internal Medicine; Visit Provider Internal Medicine
DX: E55.9 Vitamin D deficiency, unspecified (principal); E83.42 Hypomagnesemia; R53.83 Other fatigue; I10 Essential (primary) hypertension; E78.00 Pure hypercholesterolemia, unspecified; R73.9 Hyperglycemia, unspecified; E53.8 Deficiency of other specified B group vitamins; D64.9 Anemia, unspecified
CPT/HCPCS: 36415; 80053; 82306; 82607; 82746; 83036; 83735; 84443; 85025

== ENCOUNTER 2023-07-23 12:30 | Outpatient (REF) | payer MEDICARE, SELFPAY ==
[2023-07-23 14:00] LABS: Appearance Urine Cloudy; Color Urine Yellow; Glucose Urine UA Negative (Negative); Leukocyte Esterase Urine Small (1+) (Negative); Nitrite Urine Negative (Negative); PH 6.5 (5.0-9.0); UMIC TRIGGER UACC YES; Urine Blood Negative (Negative); Urine Ketones Negative (Negative); Urine Protein Negative (Neg-Trace)
[2023-07-23 14:08] LABS: Bacteria Urine Trace (None Seen); Hyaline Casts Urine 0-2 /LPF (0-2); RBC Urine 0-2 /HPF (0-2); UACC Culture Trigger YES; WBC Urine >50 /HPF (0-5)
== END 2023-07-23 12:31 | disposition home or self-care (01) ==
LOC: HO.LAB 12:30
PROVIDERS: PCP Internal Medicine; Visit Provider Internal Medicine
DX: R30.0 Dysuria (principal); R53.83 Other fatigue; I10 Essential (primary) hypertension
CPT/HCPCS: 81001; 81003; 87086

== ENCOUNTER 2023-10-12 13:47 | Outpatient (AMB) | payer MEDICARE, SELFPAY ==
[2023-10-12 13:48] VITALS: BP 140/82; PULSE 70; O2SAT 98; BMI 32.5
--- NOTE | 2023-10-12 13:48 | A.OFFPC_ITS ---
Vital Signs 10/12/23 13:48 Height 5 ft Weight 166 lb 10.711 oz BMI 32.5 BP 140/82 H Blood Pressure Location Lt brachial Position Sitting Pulse 70 Pulse Source Pulse Oximeter Pulse Oximetry (%) 98 Oxygen Delivery Method Room Air Intake Visit Reasons: fatigue, weight loss, HTN, hyperlipidemia Prescriptionist Required: No Allergies doxycycline Allergy (Unknown, Verified 10/12/23 14:32) Unknown prednisone Allergy (Unknown, Verified 10/12/23 14:32) Unknown Medication List - Last Reconciled 10/12/23 by Audi Woods MD acetaminophen-codeine 300-30 mg 1 tab PO TID PRN 5 days albuterol sulfate 90 mcg/actuation 2 puffs inhalation Q6H PRN atorvastatin 20 mg PO DAILY 30 days cholecalciferol (vitamin D3) 25 mcg PO DAILY cholecalciferol (vitamin D3) 50 mcg PO DAILY 90 days diclofenac sodium 1% (Voltaren Arthritis Pain) 4 grams topical QID fluticasone propionate 50 mcg/actuation 1 spray intranasal DAILY PRN furosemide 40 mg PO QAM gabapentin 100 mg PO BID hydrocortisone 2.5% 1 appl topical BID PRN hydroxyzine HCl 25 mg PO BEDTIME PRN lisinopril 20 mg PO DAILY 90 days loratadine 10 mg PO DAILY PRN mupirocin 2% topical PER PKG DIR omeprazole 20 mg PO DAILY ropinirole 2 mg PO BEDTIME PRN sertraline 25 mg PO DAILY tizanidine 2 mg PO BEDTIME tramadol 50 mg PO Q6H PRN 15 days triamcinolone acetonide 0.1% 1 appl topical DAILY PRN varenicline PO PER PKG DIR Tobacco use date assessed: 07/13/23 Fall risk assessment: 1 Fall in past year Last assessed Fall Risk: 10/12/23 Dental Screening Dental Screen Date: 07/13/23 HPI fatigue, weight loss, HTN, hyperlipidemia HPI Details Patient comes in today for her follow up visit States that she continues to experience increased weakness of both legs and feels very unsteady often when she is walking and moving about States that she has to move very slowly as she is afraid that she might end up losing her balance and falling She denies any headaches or dizziness Denies any chest pains, no increased shortness of breath No nausea /vomiting, no abdominal pain No change in bowel habits noted Needs a couple of her Rx refilled Would also like to get something to help her quit smoking Would like to know how she did on her labs done back in July 2023 [facility] Medical History (Updated 10/12/23 @ 14:26 by Audi Woods MD) History of cancer of vulva Psoriasis Depression Lymphedema due to chronic inflammation Morbid obesity with BMI of 40.0-44.9, adult Restless leg syndrome Vitamin D deficiency Urinary incontinence Smoker COPD (chronic obstructive pulmonary disease) GERD without esophagitis Pure hypercholesterolemia Benign essential hypertension Surgical History (Updated 10/13/23 @ 05:41 by Audi Woods MD) History of vulvectomy Family History Father No problems noted. Mother Diabetes Sister No problems noted. 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 How often do you have a drink containing alcohol?: Monthly or less 2. How many drinks containing alcohol do you have on a typical day when you are drinking?: 1 or 2 3. How often do you have six or more drinks on one occasion?: Never Total Score: 1 Score Reviewed/Action Taken: Yes TIO-7 AMB Questionnaire TIO-7 Date TIO - 7 assessed: 07/13/23 Source: Developed by Drs. Merrill Wynn, Amanda Monge, Woo Paredes and colleagues, with an educational yash from [employer]. Review of Systems Const Denies chills, Reports fatigue (increased - states that she can spend all day sleeping ), Denies fever(s), Denies headache(s), Reports poor appetite (mostly due to no motivation ), Reports weakness (especially of both legs) and Reports weight loss ENT Denies dysphagia, Denies dizziness, Denies otalgia, Denies headache(s), Denies neck pain, Denies odynophagia and Denies sore throat Card Denies chest pain, Denies palpitations and Denies dyspnea Resp Denies chest congestion, Denies cough and Denies dyspnea GI Denies abdominal pain, Denies constipation, Denies dysphagia, Denies heartburn, Denies diarrhea, Denies nausea, Denies odynophagia and Denies vomiting Denies difficulty voiding, Reports nocturia, Denies dysuria and Denies urinary urgency Musc Denies back pain, Reports arthralgias (over both knees) and Denies neck pain Skin/Breast Reports rash (scattered scaling rash on her face and over the extensor aspect of elbows) Neuro Denies dizziness, Denies headache(s) and Reports weakness (especially of both legs) Psych Reports depression and Denies suicidal ideation Endo Reports fatigue (increased - states that she can spend all day sleeping ) and Denies palpitations Jovanny/Lymph Details: (+) mild swelling (chronic) over both lower legs, ankles and feet Physical exam (Primary Care) Vital Signs: Last Vital Signs Pulse 70 10/12/23 13:48 BP 140/82 H 10/12/23 13:48 Pulse Ox 98 10/12/23 13:48 Oxygen Delivery Method Room Air 10/12/23 13:48 BMI result Body Mass Index 32.5 Tobacco/Smoking Status: Tobacco use Status Tobacco use date assessed 07/13/23 10/12/23 13:49 Patient Tobacco Use Status Current everyday Tobacco 10/12/23 13:49 Tobacco use type Cigarette 10/12/23 13:49 e-Cigarette/Vaping Use Never Used 10/12/23 13:49 Thrive Assessment: Date of Thrive Assessment Date Thrive assessed 07/13/23 10/12/23 13:49 Const General: no acute distress and alert HENMT Throat: Yes posterior oropharynx normal and Yes tonsils normal (no TP congestion noted) Neck Neck: Yes no lymphadenopathy and Yes supple Thyroid: Thyroid normal Resp Auscultation: clear to auscultation bilaterally, no rales and no wheezes Cardio Rate: regular rate Rhythm: regular rhythm Heart sounds: no murmurs GI Palpation (GI): Soft to palpation and nontender Auscultation: normal bowel sounds General: Yes no CVA tenderness Back/Spine/Pelvis Back: no CVA tenderness Thoracic/Lumbar Spine: No lumbar spinal tenderness Skin Other: (+) few scattered scaling rash/lesions on both forearms/elbows and hands and on the face Extrem General: No clubbing, No cyanosis and Yes edema (1+ bipedal pitting edema) Right lower extremity: knee Details: tenderness; no swelling Left lower extremity: knee Details: tenderness; no swelling Results Reviewed Results Reviewed: Laboratory Tests 08/26/21 09/02/21 14:35 08:57 WBC 7.8 Hgb 14.0 Hct 43.3 Plt Count 298 Sodium 142 Potassium 4.2 Creatinine 0.82 Estimated GFR > 60 Random Glucose 113 Calcium 9.2 AST 20 ALT 21 Lactate Dehydrogenase 202 Carcinoembryonic Ag 10.90 Specific [place] (Auto) 1.025 Urine Protein (Auto) 0.5 Glucose (UA)(Auto) 0 Urine Blood (Auto) 2 Assessment and Plan Assessment & Plan (1) Bilateral leg weakness: Code(s): R29.898 - Other symptoms and signs involving the musculoskeletal system Plan: Have advised patient that her recent unsteady gait and lower extremity weakness may be related, with her leg weakness causing her unsteady gait and poor mobility She also has other issues with her legs, including restless legs, lymphedema and osteoarthritis of the knees and these are also likely contributing to her lower extremity symptoms Will try referring her to Physical therapy for further evaluation and management - is advised that physical therapy might be able to help her strengthen her legs and improve her gait (2) Bilateral primary osteoarthritis of knee: Code(s): M17.0 - Bilateral primary osteoarthritis of knee Plan: (+) symptom relief with cortisone injections when needed Follow up with [place]ology [place] [facility] [place] (3) Lymphedema of both lower extremities: Code(s): I89.0 - Lymphedema, not elsewhere classified Plan: Better controlled lately Patient is again encouraged to continue to elevate her legs as often as possible, and to wear her compression /support stockings whenever she can to help manage her lymphedema symptoms (4) Restless leg syndrome: Code(s): G25.81 - Restless legs syndrome Plan: Continue Ropinirole 2 mg Q HS (5) Pure hypercholesterolemia: Comment: Continue current treatment. Code(s): E78.00 - Pure hypercholesterolemia, unspecified Plan: Results of her labs done back in July 2023 reviewed and discussed with patient although these did not include a fasting lipid profile Reinforced low cholesterol diet Continue Atorvastatin 20 mg QD Will recheck her labs and fasting lipids in 4 months for follow-up (6) Benign essential hypertension: Code(s): I10 - Essential (primary) hypertension Plan: Reinforced low-sodium diet - goal is systolic BP of at least 140 mm less She is on Furosemide 80 mg QD, although this was primarily prescribed for her lymphedema (7) COPD (chronic obstructive pulmonary disease): Code(s): J44.9 - Chronic obstructive pulmonary disease, unspecified Qualifiers: COPD type: unspecified COPD Qualified Code(s): J44.9 - Chronic obstructive pulmonary disease, unspecified Plan: Stable - continue Albuterol HFA 2 puffs 4 times a day as needed (8) Vulvar cancer: Comment: Bx done 08/26/21 - Invasive squamous cell carcinoma, moderately differentiated; positive margins Code(s): C51.9 - Malignant neoplasm of vulva, unspecified Plan: S/P radical vulvectomy with sentinel inguinofemoral lymph node dissection with lympho scintigraphy by Dr. Ko a couple of years ago Has been advised that she does not require any chemotherapy Follow up with Dr. Ko, with gynecology and with oncology as scheduled for continuing management and surveillance (9) Psoriasis: Code(s): L40.9 - Psoriasis, unspecified Plan: Continue Triamcinolone acetonide 0.1% cream QD PRN Follow up with dermatology as scheduled (10) Vitamin D deficiency: Code(s): E55.9 - Vitamin D deficiency, unspecified Plan: Continue Vitamin D3 1000 units QD (11) GERD without esophagitis: Code(s): K21.9 - Gastro-esophageal reflux disease without esophagitis Plan: Dietary restrictions reinforced Continue Omeprazole 20 mg QD (12) Depression: Code(s): F32.9 - Major depressive disorder, single episode, unspecified Qualifiers: Depression Type: unspecified Qualified Code(s): F32.9 - Major depressive disorder, single episode, unspecified Plan: Is doing well on her current Rx; continue Sertraline 25 mg QD Offered again to refer patient to Psychiatry for further management but states that she would like to hold off on this for now - is doing well on her Rx so she does not need it (13) Smoker: Code(s): F17.200 - Nicotine dependence, unspecified, uncomplicated Plan: Counseled again on smoking cessation States that she is continuing to work on this but admits that it is a difficult struggle Will send in Rx for Varenicline to help her quit smoking (14) Obesity (BMI 30-39.9): Code(s): E66.9 - Obesity, unspecified Plan: Reinforced diet/exercise as tolerated/lose weight although patient's mobility is quite limited due to her chronic lymphedema Plan Follow up in 4 months Orders: Orders Comprehensive [place]. Panel Fast 4 Months E78.00 - Pure hypercholesterolemia, unspecified UA CC w/rflx Micro + Cult 4 Months R30.0 - Dysuria TSH reflex Free T4 4 Months E78.00 - Pure hypercholesterolemia, unspecified PT Evaluation and Treatment 10/12/23 R29.898 - Other symptoms and signs involving the musculoskeletal system Complete Blood Count Auto Diff 4 Months D64.9 - Anemia, unspecified Lipid Panel 4 Months E78.00 - Pure hypercholesterolemia, unspecified Vitamin B12 and Folate 4 Months E53.8 - Deficiency of other specified B group vitamins Vitamin D 25-OH Total 4 Months E55.9 - Vitamin D deficiency, unspecified Medications: New varenicline PO PER PKG DIR 53 ea 0RF smoking cessation gabapentin 100 mg PO BID 60 caps 1RF cholecalciferol (vitamin D3) 50 mcg PO DAILY 90 days 90 caps 3RF E55.9 - Vitamin D deficiency, unspecified Refilled tramadol 50 mg PO Q6H 15 days PRN 60 tabs 0RF pain Coding Level of Care Code Est Pt Level 4 (02258) Diagnoses Bilateral leg weakness R29.898 Bilateral primary osteoarthritis of knee M17.0 Lymphedema of both lower extremities I89.0 Restless leg syndrome G25.81 Pure hypercholesterolemia E78.00 Benign essential hypertension I10 Chronic obstructive pulmonary disease, unspecified COPD type J44.9 COPD type: unspecified COPD Vulvar cancer C51.9 Psoriasis L40.9 Vitamin D deficiency E55.9 GERD without esophagitis K21.9 Depression, unspecified depression type F32.9 Depression Type: unspecified Smoker F17.200 Obesity (BMI 30-39.9) E66.9
== END 2023-10-12 14:37 | disposition home or self-care (01) ==
PROVIDERS: PCP Internal Medicine; Visit Provider Internal Medicine
DX: M17.0 Bilateral primary osteoarthritis of knee (principal); I89.0 Lymphedema, not elsewhere classified; G25.81 Restless legs syndrome; E78.00 Pure hypercholesterolemia, unspecified; R29.898 Other symptoms and signs involving the musculoskeletal system; I10 Essential (primary) hypertension; L40.9 Psoriasis, unspecified; E55.9 Vitamin D deficiency, unspecified; K21.9 Gastro-esophageal reflux disease without esophagitis
CPT/HCPCS: 99214

== ENCOUNTER 2023-12-14 17:52 | Inpatient (IN) | payer MEDICARE, SELFPAY ==
--- NOTE | ~2023-12-14 | CT_ITS ---
EXAMINATION: CT HEAD WITHOUT CONTRAST CT CERVICAL SPINE WITHOUT CONTRAST CLINICAL INFORMATION: Fall. COMPARISON: None. TECHNIQUE: Contiguous axial imaging was performed from the skullbase to vertex without intravenous administration of contrast. Multidetector helical imaging was performed through the cervical spine. This CT examination was performed using dose optimization techniques as appropriate, variously including the following: *Automated exposure control *Adjustment of mA and/or kV according to patient size (this includes techniques or standardized protocols for targeted exams where dose is matched to indication/reason for exam; i.e. extremities or head) *Use of iterative reconstruction technique DLP: 1033 mGy-cm. FINDINGS: HEAD: There is no evidence of acute intracranial hemorrhage or territorial infarction. No abnormal mass effect or midline shift is seen. Davis to white matter differentiation is well preserved. No extra-axial fluid collections are identified. Multiple focal areas of low density are visible in the yan radiata, the basal ganglia, and in the genu of the corpus callosum on the left side, suspected to represent age-indeterminate infarcts. These findings are superimposed upon extensive chronic white matter microangiopathic changes. There is moderate diffuse brain parenchymal volume loss and mild to moderate ex vacuo dilatation of the ventricles. The osseous structures and soft tissues are normal. The mastoid air cells and visualized portions of the paranasal sinuses are fairly well aerated. CERVICAL SPINE: No acute fracture or subluxation is identified in the cervical spine. There is severe disc space narrowing with bulky anterior endplate spurring at the C6-C7 level. Broad-based central disc protrusion at this level distorts the ventral cord with moderate central canal stenosis. Disc-osteophyte complexes mildly impresses upon the ventral thecal sac at the C4-C5 and C5-C6 levels. Reversal of the normal cervical lordosis noted with a mild leftward cervical spinal curvature. The atlantoaxial articulation is normally maintained. The paraspinal soft tissues are normal. The lung apices are clear. CT/CT cervical spine wo IV con IMPRESSION: 1. No acute intracranial hemorrhage or territorial infarction. Extensive chronic white matter microangiopathy. Scattered presumed chronic age-indeterminate infarcts in the basal ganglia, yan radiata, and corpus callosum. Diffuse brain parenchymal volume loss. 2. No evidence of acute cervical spine traumatic injury. Multilevel cervical spondylosis, most significant at the C6-C7 level with a broad-based central disc protrusion contributing to moderate central canal stenosis. Electronically signed by: Dakota Merchant MD 12/14/2023 08:50 PM EDT RP
--- NOTE | ~2023-12-14 | XR_ITS ---
EXAMINATION: XR CHEST CLINICAL INFORMATION: Altered mental status COMPARISON: Chest x-ray on 12/28/2016 TECHNIQUE: Frontal view of the chest was obtained. FINDINGS: The cardiac silhouette is normal. There is mild diffuse bronchial wall thickening. There are no areas of consolidation. There are no pleural effusions or pneumothoraces. The bones and soft tissues are unremarkable for the patient's age. XR/XR chest 1V IMPRESSION: Bronchial wall thickening may be infectious and/or inflammatory in etiology. Electronically signed by: Arely García MD 12/14/2023 08:12 PM EDT
--- NOTE | ~2023-12-14 | CT_ITS ---
EXAMINATION: CTA OF THE HEAD AND NECK CLINICAL INFORMATION: Right facial droop and weakness. COMPARISON: Head CT from 12/14/2023. Soft tissue neck CT dated 07/30/2021. TECHNIQUE: Test bolus sequences followed by intravenous administration of 70 mL of Omnipaque 350. Helical imaging was performed in the axial plane from the mediastinum to the skull vertex. Delayed postcontrast imaging of the head was also performed. The data was processed at the lead nuclear medicine technologist's workstation for generation of MIP sequences. Three-dimensional volume rendered reformatted images were also generated at an offline 3-D workstation. Stenoses are assessed in accordance with NASCET criteria unless otherwise indicated. This CT examination was performed using dose optimization techniques as appropriate, variously including the following: *Automated exposure control *Adjustment of mA and/or kV according to patient size (this includes techniques or standardized protocols for targeted exams where dose is matched to indication/reason for exam; i.e. extremities or head) *Use of iterative reconstruction technique DLP: 1398 mGy-cm. FINDINGS: CTA neck: The imaged aortic arch and origins of the great vessels are patent with mild atherosclerotic wall calcifications. The common carotid arteries are widely patent. The carotid bifurcations are patent. The cervical internal carotid arteries are relatively normal in caliber with mild wall calcifications at the origins of the vessels. Otherwise, no significant stenosis visible. The vertebral arteries opacify normally and are of normal caliber; wall calcifications at the origins of the vessels somewhat limited assessment. There is an 8 mm ovoid soft tissue lesion in the right parotid tail at the site of a previously reported complex glandular lesion, status post previous fine-needle aspiration. Reversal of the normal cervical lordosis again evident with moderate spondylosis at the C6-C7 level. The imaged portions of the lungs are clear. CTA head: The intradural vertebral arteries and basilar artery are normal. The posterior cerebral arteries are widely patent. The internal carotid arteries are of normal caliber. The left LINDA and MCA vascular complexes bilaterally are normal. There is a moderate stenosis in the distal A2 segment of the right LINDA. There is no abnormal parenchymal or leptomeningeal enhancement. The venous sinuses opacify normally. Mild high right parietal scalp soft tissue contusion. Mild right supraorbital soft tissue swelling noted. CT/CT angio head neck stroke IMPRESSION: No hemodynamically significant stenosis or occlusion in the cervical vasculature. Moderate stenosis in the distal A2 segment of the right LINDA. Otherwise, no vessel occlusion or significant stenosis in the remainder of the intracranial vasculature at the level of the [place] of [place]. Small 8 mm ovoid soft tissue lesion in the medial right parotid tail in the vicinity of a previous complex glandular lesion, status post prior fine-needle aspiration. Mild right supraorbital soft tissue swelling. Mild high right parietal scalp soft tissue contusion. Electronically signed by: Dakota Merchant MD 12/14/2023 10:04 PM EDT
--- NOTE | ~2023-12-14 | US_ITS ---
EXAMINATION: US TRIPLEX LOWER EXTREMITY, RIGHT CLINICAL INFORMATION: Right leg pain COMPARISON: None available. TECHNIQUE: Color-flow triplex imaging with spectral analysis and compression Doppler were performed on the right lower extremity. FINDINGS: Respiratory variation, normal compression and augmented flow are noted throughout the right lower extremity. The visualized common femoral vein, superficial femoral vein, profunda femoral vein, popliteal vein and midcalf peroneal and posterior tibial venous segments show no evidence of deep venous thrombosis. There is no Leyva's cyst. US/US venous duplex LE RT IMPRESSION: No evidence of deep venous thrombosis involving the right lower extremity. Electronically signed by: Noah Ramírez MD 12/17/2023 01:20 PM EDT RP
--- NOTE | ~2023-12-14 | MR_ITS ---
EXAMINATION: MR BRAIN WITHOUT CONTRAST CLINICAL INFORMATION: Right-sided weakness. Cerebrovascular accident. COMPARISON: CTA head and neck from 12/14/2023. TECHNIQUE: MRI of the brain was obtained using routine sequences without contrast. FINDINGS: There is a region of restricted diffusion involving the left yan radiata, tail of the left caudate lobe, posterior limb of the left internal capsule, and left lentiform nucleus. Associated T2 FLAIR hyperintensity. No evidence of hemorrhagic transformation. No additional restricted diffusion. No evidence of acute or chronic hemorrhagic products on heme-sensitive imaging. Chronic lacunar infarcts of the left lentiform nucleus and anthony. Scattered and partially confluent periventricular, deep white matter, and brainstem T2 FLAIR hyperintensities consistent with moderate underlying microangiopathy. Proportional prominence of the ventricles and sulcal spaces without evidence of obstructive hydrocephalus. No abnormal mass effect. No midline shift. Normal appearance of the pituitary gland. Normal positioning of the cerebellar tonsils. Normal arterial and venous vascular flow voids are present. Mild subgaleal hematoma along the posterior skull, measuring up to 0.3 cm in depth. Normal, homogeneous marrow signal. Mild mucosal thickening of the paranasal sinuses. No signal abnormalities within the mastoids. MR/MR head/brain wo con IMPRESSION: 1. Acute infarct of the left yan radiata, posterior limb of the left internal capsule, and left lentiform nucleus. No evidence of hemorrhagic transformation. 2. Moderate underlying microangiopathy and generalized cerebral volume loss. Chronic lacunar infarcts of the deep nuclei and anthony. 3. Mild subgaleal hematoma along the posterior skull. Electronically signed by: Alonzo Sanders DO 12/15/2023 03:03 PM EDT
--- NOTE | 2023-12-14 18:10 | ED.AMS ---
HPI - Altered Mental Status General Chief Complaint: Fall Stated Complaint: found on floor, lkwt x21 hrs, r side weakness,uti? Time Seen by Provider: 12/14/23 18:08 Source: patient and EMS Mode of arrival: EMS Limitations: altered mental status History of Present Illness ED Provider: pepper COVARRUBIAS narrative: Patient is 73 years old with history of bilateral leg weakness depression COPD restless leg syndrome, hypertension last seen by her friend at 19:00 at [facility] tried to call overnight and morning did not answer went to see her found her on the ground with face down incontinent of urine smelling bad and noticed right-sided weakness and R facial droop EMS checked her POC was 33 received dextrose Related Data Previous Rx's ?Medication ?Instructions ?Recorded hydroxyzine HCl 25 mg tablet 25 mg PO BEDTIME PRN anxiety #30 07/16/23 tabs lisinopril 20 mg tablet 20 mg PO DAILY 90 days #90 tabs 07/16/23 sertraline 25 mg tablet 25 mg PO DAILY #30 tabs 07/23/23 atorvastatin 20 mg tablet 20 mg PO DAILY 30 days #30 tabs 09/06/23 cholecalciferol (vitamin D3) 50 50 mcg PO DAILY 90 days #90 caps 10/12/23 mcg (2,000 unit) capsule gabapentin 100 mg capsule 100 mg PO BID #60 caps 10/12/23 tramadol 50 mg tablet 50 mg PO Q6H PRN pain 15 days #60 24 tabs hydrocortisone 2.5 % topical cream 1 appl topical BID PRN rash #30 10/22/23 grams triamcinolone acetonide 0.1 % 1 appl topical DAILY PRN rash #30 10/22/23 topical cream grams Allergies Allergy/AdvReac Type Severity Reaction Status Date / Time doxycycline Allergy Unknown Unknown Verified 12/14/23 18:24 prednisone Allergy Unknown Unknown Verified 12/14/23 18:24 Review of Systems Review of Systems: Yes all other systems are reviewed and are negative PMFSH Past Medical History Medical History History of cancer of vulva Psoriasis Depression Lymphedema due to chronic inflammation Morbid obesity with BMI of 40.0-44.9, adult Restless leg syndrome Vitamin D deficiency Urinary incontinence Smoker COPD (chronic obstructive pulmonary disease) GERD without esophagitis Pure hypercholesterolemia Benign essential hypertension Surgical History History of vulvectomy Family History Family History Father No problems noted. Mother Diabetes Sister No problems noted. Sister Breast cancer Brother Kidney malignancy Brother Kidney malignancy Social History Social History Household Members: None Housing: Apartment Unable to assess alcohol history related to: Unable to respond Alcohol intake: current Alcohol intake frequency: holidays/special occasions only Alcohol type: wine Patient Tobacco Use Status: Current everyday Tobacco user Tobacco use type: Cigarette Cigarette Packs Per Day: 0.5 Cigarettes Per Day: 5 Smoked in Last 30 Days: No e-Cigarette/Vaping Use: Never Used Second Hand Smoke Exposure: Yes Advance Directives: No Advance Directives Information Provided: Yes Do you have a plan to hurt others: No Plan service: No 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 occupational 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: 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 And confused unkept condition strong odor Eyes: PERRLA, No Nystagmus ENT: Pharynx normal. Oral Mucosa moist swelling of the right cheek and eyelid Neck: Normal inspection. Neck supple. CVS: Normal heart rate and rhythm. Pulses normal. Respiratory: No respiratory distress. Equal air entry bilateral, no wheezing/rales/rhonchi Abdomen: Soft and nontender. Bowel sounds are present, no mass palpable, no CVA tenderness Skin: Skin warm and dry. Normal skin color. Normal skin turgor. Extremities: No lower extremity edema. No calf tenderness Neuro: Alert and orientedx2. Weakness of the right side 4/5 with right facial droop slurred speech Medications Administered Generic Name Dose Route Start Last Admin Trade Name Freq PRN Reason Stop Dose Admin Enoxaparin Sodium 40 mg 12/14/23 22:00 12/14/23 22:20 Enoxaparin Sodium 40 Mg/0.4 Ml Syringe SUBCUT 40 mg Q24H MARTA Administration Dextrose/Lactated Ringer's 1,000 mls @ 125 mls/hr 12/14/23 20:30 12/14/23 21:55 D5lr IVCONT 125 mls/hr .Q8H MARTA Administration Sodium Chloride 3 ml 12/15/23 00:00 12/15/23 00:20 0.9 % Sodium Chloride Flush 3 Ml Syringe IVFLUSH Not Given QSHIFT MARTA Discontinued Medications Generic Name Dose Route Start Last Admin Trade Name Freq PRN Reason Stop Dose Admin Aspirin 300 mg 12/14/23 20:52 12/14/23 21:50 Aspirin 300 Mg Supp.Rect TN 12/14/23 20:53 300 mg ONCE ONE Administration Sodium Chloride 1,000 mls @ 999 mls/hr 12/14/23 18:10 12/14/23 21:10 Ns IV 12/14/23 19:10 Infused .Q1H1M ONE Infusion Sodium Chloride 1,000 mls @ 999 mls/hr 12/14/23 19:34 12/14/23 21:50 Ns IV 12/14/23 20:34 0 mls/hr .Q1H1M ONE Titration Ceftriaxone Sodium 1 gm/ 50 mls @ 100 mls/hr 12/14/23 19:34 12/14/23 20:16 Sodium Chloride IV 12/14/23 20:03 Infused ONCE ONE Infusion Iohexol 70 ml 12/14/23 21:43 12/14/23 21:44 Iohexol 350 Mg/Ml 100 Ml Infus..Btl IV 12/14/23 21:44 70 ml ONCE ONE Administration Medical Decision Making Medical Decision Making MDM Narrative: Patient is 73 years old with history of bilateral leg weakness depression COPD restless leg syndrome, hypertension came for unwitnessed fall last known well time more than 16 hours ago noticed to have slurred speech and generalized weakness POC was 33 patient responded to D10 during stay in the ER patient improved remarkably after dextrose infusion and was almost back to normal on arrival patient is still had right facial droop slow to speech and right-sided slight weakness CTA head and CTA negative for acute workup showed WBCs in the urine suggestive of UTI and elevated CPK . Will admit patient for further evaluation Differential Diagnosis Differential Diagnoses: The differential diagnosis associated with the presentation includes CVA/bacteremia/metabolic encephalopathy/TIA/seizure/hypoglycemia Admission/Observation Consideration of admission/observation: Escalation of care including admission/observation considered Consult Healthcare Provider Management of the patient was discussed with: Hospitalist Lab Data [facility] Lab Attestation statement: I reviewed the patient's lab results. 12/14/23 18:44 12/14/23 18:44 Labs: Lab Results 12/14/23 12/14/23 Range/Units 18:44 19:02 WBC 10.0 (4.8-10.8) X10*3/uL RBC 4.06 L (4.20-5.50) X10*6/uL Hgb 14.0 (12.0-16.0) g/dl Hct 40.3 (37.0-47.0) % MCV 99.3 H (80.0-98.0) fL MCH 34.5 H (27.0-33.0) pg MCHC 34.7 (31.0-35.0) g/dl RDW 13.5 (11.0-16.0) % Plt Count 272 (160-400) X10*3/uL MPV 10.0 (9.4-12.3) fL Immature Gran % (Auto) 0.4 (0.0-0.4) % Neut % (Auto) 76.6 H (45-73) % Lymph % (Auto) 15.4 L (20-40) % [place] % (Auto) 7.2 (2-11) % Eos % (Auto) 0.1 (0-4) % Baso % (Auto) 0.3 (0-2) % Lymph # (Auto) 1.5 (1.2-4.9) X10*3/uL [place] # (Auto) 0.7 (0.1-1.2) X10*3/uL Eos # (Auto) 0.0 (0.0-0.4) X10*3/uL Baso # (Auto) 0.0 (0.0-0.2) X10*3/uL Abs Immat Gran (auto) 0.04 H (0.00-0.03) X10*3/uL Absolute Neuts (auto) 7.7 (2.0-8.3) x10*3/uL Absolute Nucleated RBC 0.000 (0.0-0.012) X10*3/uL Nucleated RBC % (auto) 0.0 (0.0-0.2) /100WBC PT 13.1 (11.1-13.3) SEC INR 1.1 (0.9-1.1) VBG pH 7.43 (7.32-7.43) VBG pCO2 37 mmHg VBG pO2 56 mmHg VBG HCO3 24 (22-26) mmol/L VBG O2 Saturation 88.0 % VBG Base Excess 0.8 mmol/L Sodium 140 (135-145) mmol/L Potassium 3.6 (3.3-5.1) mmol/L Chloride 110 H (96-108) mmol/L Carbon Dioxide 24 (22-29) mmol/L Anion Gap 10 L (12-20) BUN 19 H (9-16) mg/dL Creatinine 0.64 (0.5-1.4) mg/dL Estim Creat Clear Calc 74.6 Estimated GFR > 60 Random Glucose 153 H (60-115) mg/dL Lactic Acid 2.4 H* (0.5-2.0) mmol/L Calcium 8.9 (8.4-10.2) mg/dL Total Bilirubin 0.5 (0.0-1.0) mg/dL AST 47 H (5-31) U/L ALT 18 (0-31) U/L Alkaline Phosphatase 84 (39-117) U/L Total Creatine Kinase 2127 H (26-140) U/L Troponin I High Sens 44.5 H (<3.5-17.0) ng/L Total Protein 6.1 L (6.5-8.0) g/dL Albumin 3.5 (3.5-5.0) g/dL Urine Color Yellow Urine Appearance Cloudy Urine pH 6.0 (5.0-9.0) Ur Specific [place] 1.025 (1.005-1.025) Urine Protein 30 (1+) H (Neg-Trace) mg/dL Urine Glucose (UA) 250 H (Negative) mg/dL Urine Ketones 15 (Negative) mg/dL Urine Blood Small (1+) H (Negative) Urine Nitrite Positive H (Negative) Ur Leukocyte Esterase Small (1+) H (Negative) Urine RBC 6-10 H (0-2) /HPF Urine WBC >50 H (0-5) /HPF Ur Squamous Epith Cells 6-10 (0-2) /HPF Urine Bacteria 4+ (None Seen) Hyaline Casts 3-5 (0-2) /LPF COVID-19 (RACHEL) Negative (Negative) COVID-19 Clin Com See Note Independent Interpretation I performed an independent interpretation of an: EKG and CT Scan Interpretation: Normal sinus rhythm left axis deviation heart rate 88 beats per minute poor progression of R-wave no acute ischemia Radiology Impression Discussion of test interpretation with radiology: I have reviewed the radiologist's reading. Radiologist Impression: CT/CT angio head neck stroke IMPRESSION: No hemodynamically significant stenosis or occlusion in the cervical vasculature. Moderate stenosis in the distal A2 segment of the right LINDA. Otherwise, no vessel occlusion or significant stenosis in the remainder of the intracranial vasculature at the level of the [place]. Small 8 mm ovoid soft tissue lesion in the medial right parotid tail in the vicinity of a previous complex glandular lesion, status post prior fine-needle aspiration. Mild right supraorbital soft tissue swelling. Mild high right parietal scalp soft tissue contusion. Electronically signed by: Dakota Merchant MD 12/14/2023 10:04 PM EDT Critical Care Time Critical Care Time Critical Care Time: Yes Total Critical Care Time: 60 Attestation: The patient was critically ill with a high probability of imminent or life threatening deterioration. I spent greater than 65???minutes of discontinuous time evaluating the patient,delivering critical care at the bedside, discussing and evaluating pertinent data with consultants. Critical care time does not include time spent performing separately billable procedures or teaching. Total time spent performing critical care was ?60??minutes. Discharge Plan Discharge Clinical Impression: UTI (urinary tract infection), Acute metabolic encephalopathy, Right sided weakness Patient Disposition: Admitted As Inpatient
--- NOTE | 2023-12-14 18:11 | ECG_ITS ---
Test Reason : FALL Blood Pressure : / mmHG Vent. Rate : 088 BPM Atrial Rate : 088 BPM P-R Int : 158 ms QRS Dur : 090 ms QT Int : 394 ms P-R-T Axes : 058 -32 043 degrees QTc Int : 476 ms Normal sinus rhythm Left axis deviation Septal infarct , age undetermined Abnormal ECG No previous ECGs available Referred By: Bryon Briceno Electronically Signed By:SHALA COELLO
[2023-12-14 18:20] VITALS: BP 190/90; PULSE 95; O2SAT 97
[2023-12-14 18:23] VITALS: BP 164/68; PULSE 94; RESP 24; TEMP 36.9; O2SAT 97; BMI 35.0
[2023-12-14 18:26] VITALS: BP 164/68; PULSE 94; RESP 24; TEMP 36.9; O2SAT 97
[2023-12-14 19:06] LABS: Appearance Urine Cloudy; Color Urine Yellow; Glucose Urine UA 250 mg/dL (Negative); Leukocyte Esterase Urine Small (1+) (Negative); MANUAL DIFF FLAG NO; Nitrite Urine Positive (Negative); Specific Gravity - Urine 1.025 (1.005-1.025); UMIC TRIGGER UACC YES; Urine Blood Small (1+) (Negative); Urine Ketones 15 mg/dL (Negative); Urine Protein 30 (1+) mg/dL (Neg-Trace)
[2023-12-14 19:07] LABS: VBG Base Excess 0.8 mmol/L; VBG HCO3 24 mmol/L (22-26); VBG pCO2 37 mmHg; VBG pH 7.43 (7.32-7.43); VBG pO2 56 mmHg
[2023-12-14 19:07] LABS: Basophils Percent Auto 0.3 % (0-2); Eosinophils Percent Auto 0.1 % (0-4); Hematocrit 40.3 % (37.0-47.0); Imm Gran Abs Auto 0.04 X10*3/uL (0.00-0.03); Imm Gran Pct Auto 0.4 % (0.0-0.4); Lymphocytes Absolute Auto 1.5 X10*3/uL (1.2-4.9); Lymphocytes Percent Auto 15.4 % (20-40); Mean Corpuscular HGB Conc 34.7 g/dl (31.0-35.0); Mean Corpuscular Hemoglobin 34.5 pg (27.0-33.0); Mean Corpuscular Volume 99.3 fL (80.0-98.0); Monocytes Absolute Auto 0.7 X10*3/uL (0.1-1.2); Monocytes Percent Auto 7.2 % (2-11); Neutrophils Absolute Auto 7.7 x10*3/uL (2.0-8.3); Neutrophils Percent Auto 76.6 % (45-73); Platelet Count 272 X10*3/uL (160-400); Red Blood Count 4.06 X10*6/uL (4.20-5.50); Red Cell Distribution Width 13.5 % (11.0-16.0)
[2023-12-14 19:12] LABS: INTERNATIONAL NORM RATIO 1.1 (0.9-1.1); Prothrombin Time 13.1 SEC (11.1-13.3)
[2023-12-14 19:14] VITALS: BP 188/71; PULSE 100; RESP 18; TEMP 36.3; O2SAT 98
[2023-12-14 19:14] LABS: Bacteria Urine 4+ (None Seen); UACC Culture Trigger YES; WBC Urine >50 /HPF (0-5)
[2023-12-14 19:18] LABS: COVID-19 Test Negative (Negative); IDNOW Serial# 6674DD1D
[2023-12-14 19:21] LABS: Alanine Aminotransferase 18 U/L (0-31); Albumin Level 3.5 g/dL (3.5-5.0); Alkaline Phosphatase 84 U/L (39-117); Anion Gap 10 (12-20); Aspartate Amino Transferase 47 U/L (5-31); Bilirubin Total 0.5 mg/dL (0.0-1.0); Blood Urea Nitrogen 19 mg/dL (9-16); Calcium 8.9 mg/dL (8.4-10.2); Carbon Dioxide 24 mmol/L (22-29); Chloride 110 mmol/L (96-108); Creatinine Clr Calc Pharmacy 74.6; Estimated Glomerular Filt Rate > 60; Glucose Random 153 mg/dL (60-115); Potassium 3.6 mmol/L (3.3-5.1); Sodium 140 mmol/L (135-145); Total Protein 6.1 g/dL (6.5-8.0)
[2023-12-14 19:22] LABS: Venous Blood Gas Refer to POC result
[2023-12-14 19:28] LABS: Troponin-I High Sensitivity 44.5 ng/L (<3.5-17.0)
[2023-12-14 19:31] LABS: Lactic Acid 2.4 mmol/L (0.5-2.0)
[2023-12-14] MEDS: 0.9 % Sodium Chloride 1,000 ML 999 ML IV ×2 (19:34→21:19)
[2023-12-14] MEDS: cefTRIAXone sodium 1 GM in 0.9 % Sodium Chloride 50 ML IV (19:56)
--- NOTE | 2023-12-14 20:27 | PM.IMHP ---
History of Present Illness Date of Service: 12/14/23 Attending physician on admission: Segrio Gonzalez Chief Complaint: found on ground incontinent of urine 73-year-old female with history of lymphedema, chronic bilateral lower extremity weakness, hypertension, hyperlipidemia, GERD, COPD not on home O2, restless legs syndrome with history of vulvar cancer presented to the ED via EMS after being found by her friend face down on the ground incontinent of urine that was foul smelling and noted right-sided weakness and right facial droop. Apparently he had last seen her around 19:00 last night and normal state of health. On EMS arrival, POC was 33 and received dextrose. One exam, patient is oriented to self and place, but mumbling speech very lethargic and generally weak, worse on the right side with right sided facial droop. Right side of face is swollen including eye with mild erythema. She is mildly tachycardic around 100 and slightly hypertensive at. No fevers. No leukocytosis. Renal function normal, electrolyte levels normal except for chloride 110. Random glucose on arrival 153. Lactic acid 2.4. Total CK 2027, troponin 44. Urinalysis indicative of infection with 1+ leukocytes, positive nitrites, 1+ blood, positive urinary sediment, 4+ bacteria. There is also 1+ protein and glucosuria. Negative for COVID-19. Chest x-ray shows bronchial wall thickening possibly infectious versus inflammatory. Head CT and cervical spine CT remain pending but appear to be negative for any acute intracranial or osseous abnormality. In the ED, has received 1 L IV NS and 1 g ceftriaxone. Review of Systems Review of Systems: Yes Unobtainable due to mental condition and Unobtainable due to mental status [facility] Medical History History of cancer of vulva Psoriasis Depression Lymphedema due to chronic inflammation Morbid obesity with BMI of 40.0-44.9, adult Restless leg syndrome Vitamin D deficiency Urinary incontinence Smoker COPD (chronic obstructive pulmonary disease) GERD without esophagitis Pure hypercholesterolemia Benign essential hypertension Family History Father No problems noted. Mother Diabetes Sister No problems noted. Sister Breast cancer Brother Kidney malignancy Brother Kidney malignancy Surgical History History of vulvectomy Social History Household Members: None Housing: Apartment Unable to assess alcohol history related to: Unable to respond Alcohol intake: current Alcohol intake frequency: holidays/special occasions only Alcohol type: wine Patient Tobacco Use Status: Current everyday Tobacco user Tobacco use type: Cigarette Cigarette Packs Per Day: 0.5 Cigarettes Per Day: 5 Smoked in Last 30 Days: No e-Cigarette/Vaping Use: Never Used Second Hand Smoke Exposure: Yes Advance Directives: No Advance Directives Information Provided: Yes Do you have a plan to hurt others: No Plan service: No 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 Cognitive needs: No Hearing needs: No Vision needs: Yes Meds Allergies Allergy/AdvReac Type Severity Reaction Status Date / Time doxycycline Allergy Unknown Unknown Verified 12/14/23 18:24 prednisone Allergy Unknown Unknown Verified 12/14/23 18:24 Active Medications: Current Medications Sodium Chloride (Ns) 1,000 mls @ 999 mls/hr IV .Q1H1M ONE Stop: 12/14/23 20:34 Sodium Chloride (0.9 % Sodium Chloride Flush 3 Ml Syringe) [facility] Medications ?Medication ?Instructions ?Recorded ?Confirmed ?Last Taken ?Type albuterol sulfate 90 mcg/actuation 2 puff inhalation Q6H PRN 02/16/20 10/12/23 Unknown History aerosol inhaler Respiratory Distress fluticasone propionate 50 1 spray intranasal DAILY PRN 02/16/20 10/12/23 Unknown History mcg/actuation nasal Allergic Symptoms spray,suspension loratadine 10 mg tablet 10 mg PO DAILY PRN allergies 02/16/20 10/12/23 Unknown History omeprazole 20 mg capsule,delayed 20 mg PO DAILY 02/16/20 10/12/23 Unknown History release Physical Exam Vital Signs and Narrative: Vital Signs: Last Vital Signs Temp 97.3 F 12/14/23 19:14 Pulse 100 12/14/23 19:14 Resp 18 12/14/23 19:14 BP 188/71 H 12/14/23 19:14 Pulse Ox 98 12/14/23 19:14 O2 Del Method Nasal Cannula 12/14/23 19:14 O2 Flow Rate 3 12/14/23 19:14 Oxygen Flow Rate 2 12/14/23 18:23 BMI result Body Mass Index 35.0 Constitutional - awake but lethargic, No apparent distress Eyes - PERRLA, EOMI Cardiovascular - S1S2, RRR, No edema Respiratory - Normal lung expansion, Normal respiratory effort, No respiratory distress, CTA bilaterally Gastrointestinal - NT / ND; +BS; No rebound or guarding Extremities - no calf tenderness bilaterally, no swelling Skin - Warm/Dry Neurological - lethargic & oriented to self and and place, some difficulty following commands, right sided facial droop with slurred speech otherwise CN II-XII in tact, globally weak with 3/5 strength left extremities but 3/5 strength RUE, 2/5 strength RLE Psychological - Appropriate affect Results Labs 12/14/23 18:44 12/14/23 18:44 Labs: Laboratory Results - last 24 hr 12/14/23 12/14/23 18:44 19:02 MCV 99.3 H MCH 34.5 H MCHC 34.7 RDW 13.5 Plt Count 272 MPV 10.0 Immature Gran % (Auto) 0.4 Neut % (Auto) 76.6 H Lymph % (Auto) 15.4 L [place] % (Auto) 7.2 Eos % (Auto) 0.1 Baso % (Auto) 0.3 Lymph # (Auto) 1.5 [place] # (Auto) 0.7 Eos # (Auto) 0.0 Baso # (Auto) 0.0 Abs Immat Gran (auto) 0.04 H Absolute Neuts (auto) 7.7 Absolute Nucleated RBC 0.000 Nucleated RBC % (auto) 0.0 PT 13.1 INR 1.1 VBG pH 7.43 VBG pCO2 37 VBG pO2 56 VBG HCO3 24 VBG O2 Saturation 88.0 VBG Base Excess 0.8 Anion Gap 10 L Estim Creat Clear Calc 74.6 Estimated GFR > 60 Random Glucose 153 H Lactic Acid 2.4 H* Calcium 8.9 Total Bilirubin 0.5 AST 47 H ALT 18 Alkaline Phosphatase 84 Total Creatine Kinase 2127 H Troponin I High Sens 44.5 H Total Protein 6.1 L Albumin 3.5 Urine Color Yellow Urine Appearance Cloudy Urine pH 6.0 Ur Specific [place] 1.025 Urine Protein 30 (1+) H Urine Glucose (UA) 250 H Urine Ketones 15 Urine Blood Small (1+) H Urine Nitrite Positive H Ur Leukocyte Esterase Small (1+) H Urine RBC 6-10 H Urine WBC >50 H Ur Squamous Epith Cells 6-10 Urine Bacteria 4+ Hyaline Casts 3-5 COVID-19 (RACHEL) Negative COVID-19 Clin Com See Note Imaging Radiologist's Impressions: Impressions Chest X-Ray 12/14/23 18:20 IMPRESSION: Bronchial wall thickening may be infectious and/or inflammatory in etiology. Electronically signed by: Arely García MD 12/14/2023 08:12 PM EDT RP Assessment and Plan (1) Right sided weakness: Status: Acute (2) Dysarthria: Status: Acute (3) Acute metabolic encephalopathy: Status: Acute (4) UTI (urinary tract infection): Status: Acute (5) Rhabdomyolysis: Status: Acute (6) Elevated troponin: Status: Acute Plan 73-year-old female with history of lymphedema, chronic bilateral lower extremity weakness, hypertension, hyperlipidemia, GERD, COPD not on home O2, restless legs syndrome with history of vulvar cancer admitted for further management of acute metabolic encephalopathy with UTI, rhabdomyolysis, and concern for acute CVA #Right sided weakness/facial droop/aphasia -concern for CVA though could possibly be r/t encephalopathy or hypoglycemia (though resolved on admission) -LKWT 7pm 12/12. Outside window for TNK. NIHSS on admission 13 -head CT appears negative for acute intracranial abnormality though final radiology read is pending. CTA head/neck ordered -give 300 mg ASA ND, continue 81 mg daily if tolerating p.o. 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 Lactic acidosis due to rhabdo/hypoperfusion, not severe sepsis -IV ceftriaxone (initiated 12/13) -Follow CBC, monitor mentation -keep NPO given ongoing lethargy. Continue IVF # acute rhabdomyolysis -CPK 2127. Renal function within normal limits -continue IVF -follow CK # elevated troponin -no chest pain, EKG without acute ischemic changes. Trope 44, repeat pending -doubt ACS, likely related to rhabdo -monitor on telemetry # acute hypoglycemia-resolved on admission -POC per EMS 33, received IV dextrose. On arrival glucose 156 -no history of diabetes, likely related to infection -monitor POC, hypoglycemic protocol in place. Continue D5/LR # hypertension -hold antihypertensives given concern for acute CVA to allow for permissive hypertension # mood disorder -continue home meds once tolerating p.o. # COPD -no exacerbation, albuterol p.r.n. # RLS -gabapentin once tolerating p.o. DVT prophylaxis- SCPs for now until head CT read Full code Patient requires inpatient stay at least 2 midnights for management of acute UTI with metabolic encephalopathy and rhabdomyolysis as well as concern for CVA. She is on IV antibiotics and requires close monitoring of mentation, neuro checks, MRI, and expert consultation Quality Stroke Does the patient have a stroke diagnosis?: Yes Reason for No Anti-thrombotic by Day Two: Drug treatment not indicated VTE Prior VTE?: No VTE Risk Level:: Medical - moderate - high VTE Device Contraindication: Treatment Not Indicated VTE Drug Contraindication: N/A - Med Ordered
--- NOTE | 2023-12-14 21:05 | PC.NURSE ---
This RN assumed pt care @ 2100. Pt resting in bed, no signs of distress. Plan of care ongoing.
[2023-12-14 21:21] LABS: Reflex Lactate? Lactic Acid Added
--- NOTE | 2023-12-14 21:22 | PC.NURSE ---
Pt medicated per jun. Plan of care ongoing. Pt with pharmacy
[2023-12-14 21:36] LABS: Troponin-I High Sensitivity 50.4 ng/L (<3.5-17.0)
[2023-12-14] MEDS: iohexoL 350 MG/ML 100 ML INFUS..BTL 70 ML IV (21:44)
[2023-12-14] MEDS: Aspirin 300 MG SUPP.RECT PR (21:50)
--- NOTE | 2023-12-14 21:50 | PHA.MEDREC ---
Pharmacy Consult ? Medication Reconciliation Pharmacy has completed the medication reconciliation. Unable to confirm meds with pt, contacted pt's son Wyatt and he was unable to confirm med list. Med list obtained from pt's pharmacy. Unable to confirm if pt is still taking gabapentin
[2023-12-14] MEDS: Dextrose 5 % and Lactated Ring 1,000 ML 125 ML IVCONT (21:55)
--- NOTE | 2023-12-14 21:58 | PC.NURSE ---
This RN spoke with Pts son Wyatt [phone] Plan of care ongoing
--- NOTE | 2023-12-14 22:15 | PC.NURSE ---
Pt medicated per [facility] Plan of care ongoing.
[2023-12-14 22:18] VITALS: BP 192/79; PULSE 99; RESP 20; O2SAT 97
[2023-12-14] MEDS: Enoxaparin Sodium 40 MG/0.4 ML SYRINGE SUBCUT (22:20)
--- NOTE | 2023-12-14 22:25 | PC.NURSE ---
Pt assisted with cell phone to speak to son Provider aware of pts b/p. Provider also aware son would like to speak with them Plan of care ongoing.
[2023-12-15] VITALS (7 sets, daily range): BP systolic 145–178; BP diastolic 67–104; PULSE 79–107; RESP 18–20; TEMP 36.2–37.1; O2SAT 93–98; BMI 31.6
[2023-12-15 00:04] LABS: ~Lactic Acid-LAB USE ONLY 1.1 mmol/L (0.5-2.0)
[2023-12-15 00:35] LABS: Glucose, Whole Blood 124 mg/dL (60-115)
[2023-12-15 05:11] LABS: MANUAL DIFF FLAG NO
[2023-12-15 05:13] LABS: Basophils Percent Auto 0.3 % (0-2); Eosinophils Absolute Auto 0.1 X10*3/uL (0.0-0.4); Hematocrit 36.9 % (37.0-47.0); Hemoglobin 12.4 g/dl (12.0-16.0); Imm Gran Abs Auto 0.02 X10*3/uL (0.00-0.03); Imm Gran Pct Auto 0.2 % (0.0-0.4); Lymphocytes Absolute Auto 2.8 X10*3/uL (1.2-4.9); Lymphocytes Percent Auto 31.4 % (20-40); Mean Corpuscular HGB Conc 33.6 g/dl (31.0-35.0); Mean Corpuscular Hemoglobin 33.6 pg (27.0-33.0); Mean Platelet Volume 10.5 fL (9.4-12.3); Monocytes Absolute Auto 0.8 X10*3/uL (0.1-1.2); Monocytes Percent Auto 9.5 % (2-11); Neutrophils Absolute Auto 5.1 x10*3/uL (2.0-8.3); Neutrophils Percent Auto 57.6 % (45-73); Platelet Count 246 X10*3/uL (160-400); Red Blood Count 3.69 X10*6/uL (4.20-5.50); Red Cell Distribution Width 13.7 % (11.0-16.0); White Blood Count 8.8 X10*3/uL (4.8-10.8)
[2023-12-15 05:32] LABS: Anion Gap 9 (12-20); Blood Urea Nitrogen 12 mg/dL (9-16); Calcium 8.6 mg/dL (8.4-10.2); Carbon Dioxide 23 mmol/L (22-29); Chloride 114 mmol/L (96-108); Cholesterol 173 mg/dL (<200); Creatinine Clr Calc Pharmacy 73.4; Estimated Glomerular Filt Rate > 60; Glucose Random 127 mg/dL (60-115); HDL Cholesterol 41 mg/dL (>40); LDL Cholesterol Calculated 120 mg/dL (<100); Potassium 3.4 mmol/L (3.3-5.1); Sodium 143 mmol/L (135-145); Triglycerides 63 mg/dL (<150)
[2023-12-15] MEDS: Dextrose 5 % and Lactated Ring 1,000 ML 125 ML IVCONT ×2 (06:21→16:04)
--- NOTE | 2023-12-15 06:22 | PC.NURSE ---
Pt medicated per [facility] Plan of care ongoing.
--- NOTE | 2023-12-15 07:00 | CA_ITS ---
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 The left ventricular systolic function is hyperdynamic. The visually estimated ejection fraction is >70%. - E/E prime ratio is >15, consistent with elevated filling pressures. - Normal right ventricular cavity size and systolic function. Findings Procedure Information Contrast agent, definity, is being given per protocol without apparent complications. Left Ventricle Normal left ventricular cavity size. The left ventricular systolic function is hyperdynamic. The visually estimated ejection fraction is >70%. There is no evidence of regional wall motion abnormalities. Abnormal diastolic function is noted. Spectral Doppler is indicative of an impaired relaxation filling pattern. E/E prime ratio is >15, consistent with elevated filling pressures. There is moderate septal asymmetric hypertrophy. Right Ventricle Normal right ventricular cavity size and systolic function. Atria The left atrium is normal in size. Aortic Valve Normal aortic valve structure and function. There is no aortic valve stenosis. There is no aortic valve regurgitation. Mitral Valve Normal mitral valve structure and function. There is no mitral valve regurgitation. There is no mitral valve stenosis. Pulmonic Valve The pulmonic valve is likely normal. Tricuspid Valve Normal tricuspid valve structure. There is no tricuspid valve regurgitation. Tricuspid regurgitation envelope is inadequate for calculation of right ventricular systolic pressure. Normal right atrial pressure. Great Vessels All visible segments of the aorta are normal in size. The visualized portions of the pulmonary artery and branches are normal. Venous The inferior vena cava is normal in size and collapses greater than 50% with inspiration. Pericardium/Pleural There is no evidence of pericardial effusion. Prior Study Comparison No significant change compared to prior study dated: 09/20/2017. Measurements 2D Linear Measurements IVSd: 1.43 0.6-0.9/0.6-1.0 cm LA Diam: 3.80 2.7-3.8/3.0-4.0 cm LAIDs Index: 2.08 1.5-2.3 cm/m2 LVOT Diam: 2.00 3.0+(-)1.3 cm 2D Systolic Function EF 4C: 79.30 >55% EF 2C: 79.40 >55% EF BiP: 79.30 >55% Mitral Valve MV Pk E: 0.83 MV PK A: 1.00 MV Decel Time: 244.00 E/A: 0.80 E'Lateral: 4.79 E'Medial: 4.24 E/E' Med: 19.50 E/E' Lat: 17.30 PHT: 72.00 MVA PHT: 3.06 Decel [place]: 3.39 Aortic Valve AoV Pk Rob: 1.50 AoV Pk Grad: 9.00 ALMA: 2.79 LVOT LVOT Pk Rob: 1.28 LVOT Mn Rob: 0.88 LVOT VTI: 0.30 LVOT Pk Grad: 7.00 LVOT Mn Grad: 4.00 LVOT Diam: 2.00 LVOT Area: 3.14 Diastolic Function MV Pk E: 0.83 MV Pk A: 1.00 E/A: 0.80 E'Medial: 4.24 E/E' Med: 19.50 E' Laterial: 4.79 E/E' Lat: 17.30 Right Ventricle TAPSE (mm): 24.80 TVS' Rob: 14.20 Tricuspid Valve RA Press: 8.00 Great Vessels Aorta Sinus of Valsalva: 4.00 2.0-3.5 cm Ao Asc: 3.30 2.1-3.4 cm Pulmonary Valve PV Pk Rob: 1.08 Peak PV Grad: 5.00 Updated in Other Vendor System with Status of Final Jonnathan Haines MD electronically signed on 12/15/2023 6:27:47 PM with status of Final
--- NOTE | 2023-12-15 07:35 | PC.NURSE ---
Resumed care of pt at 0700. Vitals taken, MRI screening form obtained, friend at bedside to help assist with answering questions, consent given verbally by pt for friend to sign from d/t right sided weakness, sent to MRI. Pt failed swallow eval d/t decreased awareness. Pt room assignment prior to this RNs arrival, at time of resuming care awaiting transport to bring pt up. Pt vitals remain stable, R sided weakness remains.
--- NOTE | 2023-12-15 08:02 | PC.NURSE ---
SALAS Armstrong notified of high BP, 178/77.
--- NOTE | 2023-12-15 08:16 | HO.PM.IMPN ---
Subjective Subjective Date of Service: 12/15/23 Interval History: Seen in follow up for acute cva, encephalopathy, uti, rhabdo Interval history: More awake this morning. Still with R facial droop and slurred speech, difficult to understand. Echo at bedside. No complaints. Review of Systems Review of Systems: Yes all other systems are reviewed and are negative Physical Exam Vital Signs: Vital Signs: Last Vital Signs Temp 97.5 F 12/15/23 08:00 Pulse 79 12/15/23 08:00 Resp 18 12/15/23 08:00 BP 175/76 H 12/15/23 08:00 Pulse Ox 93 12/15/23 08:00 O2 Del Method Room Air 12/15/23 08:00 O2 Flow Rate 3 12/14/23 19:14 Oxygen Flow Rate 2 12/14/23 18:23 BMI result Body Mass Index 35.0 Constitutional - awake and alert, No apparent distress Eyes - PERRLA, EOMI Cardiovascular - S1S2, RRR, No edema Respiratory - Normal lung expansion, Normal respiratory effort, No respiratory distress, CTA bilaterally Gastrointestinal - NT / ND; +BS; No rebound or guarding Extremities - no calf tenderness bilaterally, no swelling Skin - Warm/Dry Neurological - alert & oriented x3, right sided facial droop with slurred speech, unable to comprehend speech, otherwise CNII-XII in tact, right sided facial droop with slurred speech otherwise CN II-XII in tact, globally weak with 3/5 strength left extremities but 3/5 strength RUE, 0/5 strength RLE Psychological - Appropriate affect Objective Data Active Medications Acetaminophen (Acetaminophen 325 Mg Tablet) 650 mg PO Q6H PRN PRN Reason: Pain, Mild (Pain Scale 1-3), fever or headache Aspirin (Aspirin Enteric Coated 81 Mg Tablet.Dr) 81 mg PO DAILY [facility] Calcium Carbonate (Calcium Carbonate 750 Mg Tab.Chew) 750 mg PO Q4H PRN PRN Reason: Heartburn Enoxaparin Sodium (Enoxaparin Sodium 40 Mg/0.4 Ml Syringe) 40 mg SUBCUT Q24H [facility] Last Admin: 12/14/23 22:20 Dose: 40 mg Documented By: LYRIC Glucose (Glucose Gel 15 Gm Gel..Gram.) 15 gm PO Q15M PRN; Protocol PRN Reason: per Hypoglycemia Standing Ord. Dextrose/Lactated Ringer's (D5lr) 1,000 mls @ 125 mls/hr IVCONT .Q8H [facility] Last Admin: 12/15/23 06:21 Dose: 125 mls/hr Documented By: LYRIC Dextrose (D10) 250 mls @ 750 mls/hr IV Q15M PRN; Protocol PRN Reason: per Hypoglycemia Standing Ord. Ceftriaxone Sodium 1 gm/ (Sodium Chloride) 50 mls @ 100 mls/hr IV Q24H [facility] Magnesium Hydroxide (Milk Of Magnesia 30 Ml Oral.Susp) 30 ml PO DAILY PRN PRN Reason: Constipation Melatonin (Melatonin 3 Mg Tablet) 6 mg PO BEDTIME PRN PRN Reason: Insomnia Sodium Chloride (0.9 % Sodium Chloride Flush 3 Ml Syringe) 3 ml IVFLUSH QSHIFT [facility] Last Admin: 12/15/23 00:20 Dose: Not Given Documented By: LYRIC Non-Admin Reason: IV Running Labs 12/15/23 04:34 12/15/23 04:34 Labs: Laboratory Results - last 24 hr 12/14/23 12/14/23 12/14/23 18:44 19:02 20:51 MCV 99.3 H MCH 34.5 H MCHC 34.7 RDW 13.5 Plt Count 272 MPV 10.0 Immature Gran % (Auto) 0.4 Neut % (Auto) 76.6 H Lymph % (Auto) 15.4 L [place] % (Auto) 7.2 Eos % (Auto) 0.1 Baso % (Auto) 0.3 Lymph # (Auto) 1.5 [place] # (Auto) 0.7 Eos # (Auto) 0.0 Baso # (Auto) 0.0 Abs Immat Gran (auto) 0.04 H Absolute Neuts (auto) 7.7 Absolute Nucleated RBC 0.000 Nucleated RBC % (auto) 0.0 PT 13.1 INR 1.1 VBG pH 7.43 VBG pCO2 37 VBG pO2 56 VBG HCO3 24 VBG O2 Saturation 88.0 VBG Base Excess 0.8 Anion Gap 10 L Estim Creat Clear Calc 74.6 Estimated GFR > 60 POC Glucose Random Glucose 153 H Lactic Acid 2.4 H* Lactic Acid F/U @ 2Hr Calcium 8.9 Total Bilirubin 0.5 AST 47 H ALT 18 Alkaline Phosphatase 84 Total Creatine Kinase 2127 H Troponin I High Sens 44.5 H 50.4 H* Total Protein 6.1 L Albumin 3.5 Triglycerides Cholesterol LDL Cholesterol, Calc HDL Cholesterol Urine Color Yellow Urine Appearance Cloudy Urine pH 6.0 Ur Specific [place] 1.025 Urine Protein 30 (1+) H Urine Glucose (UA) 250 H Urine Ketones 15 Urine Blood Small (1+) H Urine Nitrite Positive H Ur Leukocyte Esterase Small (1+) H Urine RBC 6-10 H Urine WBC >50 H Ur Squamous Epith Cells 6-10 Urine Bacteria 4+ Hyaline Casts 3-5 COVID-19 (RACHEL) Negative COVID-19 Clin Com See Note 12/14/23 12/15/23 12/15/23 23:47 00:32 04:34 MCV 100.0 H MCH 33.6 H MCHC 33.6 RDW 13.7 Plt Count 246 MPV 10.5 Immature Gran % (Auto) 0.2 Neut % (Auto) 57.6 Lymph % (Auto) 31.4 [place] % (Auto) 9.5 Eos % (Auto) 1.0 Baso % (Auto) 0.3 Lymph # (Auto) 2.8 [place] # (Auto) 0.8 Eos # (Auto) 0.1 Baso # (Auto) 0.0 Abs Immat Gran (auto) 0.02 Absolute Neuts (auto) 5.1 Absolute Nucleated RBC 0.000 Nucleated RBC % (auto) 0.0 PT INR VBG pH VBG pCO2 VBG pO2 VBG HCO3 VBG O2 Saturation VBG Base Excess Anion Gap 9 L Estim Creat Clear Calc 73.4 Estimated GFR > 60 POC Glucose 124 H Random Glucose 127 H Lactic Acid Lactic Acid F/U @ 2Hr 1.1 Calcium 8.6 Total Bilirubin AST ALT Alkaline Phosphatase Total Creatine Kinase 2929 H Troponin I High Sens Total Protein Albumin Triglycerides 63 Cholesterol 173 LDL Cholesterol, Calc 120 H HDL Cholesterol 41 Urine Color Urine Appearance Urine pH Ur Specific [place] Urine Protein Urine Glucose (UA) Urine Ketones Urine Blood Urine Nitrite Ur Leukocyte Esterase Urine RBC Urine WBC Ur Squamous Epith Cells Urine Bacteria Hyaline Casts COVID-19 (RACHEL) COVID-19 Clin Com Assessment and Plan (1) Rhabdomyolysis: Status: Acute (2) CVA (cerebral vascular accident): Status: Acute (3) Sepsis secondary to UTI: Status: Acute Plan 73-year-old female with history of lymphedema, chronic bilateral lower extremity weakness, hypertension, hyperlipidemia, GERD, COPD not on home O2, restless legs syndrome with history of vulvar cancer admitted for further management of acute metabolic encephalopathy with UTI, rhabdomyolysis, and concern for acute CVA #Right sided weakness/facial droop/aphasia due to acute CVA -LKWT 7pm 12/12. Outside window for TNK. NIHSS on admission 13 -head CT negative for acute intracranial abnormality but shows extensive chronic white matter microangiopathic with scattered presumed chronic age-indeterminate infarcts in the basal ganglia, yan radiata and corpus callosum with diffuse brain parenchymal volume loss. though final radiology read is pending. CTA head/neck negative for hemodynamically significant stenosis or large vessel occlusion -give 300 mg ASA IA, continue 81 mg daily -MRI brain ordered -lipid profile shows LDL 120. 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 Whole pills in puree if tolerated, otherwise may not swallow consider IV #Acute UTi with acute metabolic encephalopathy and sepsis -UA with 1+ leukocytes, positive nitrites, 1+ blood, positive urinary sediment, 4+ bacteria -no leukocytosis but tachycardic to 100, tachypneic. Lactic acidosis due to rhabdo/hypoperfusion, not severe sepsis -IV ceftriaxone (initiated 12/13). Culture growing gram negative rods -Follow CBC, monitor mentation, follow cultures # acute rhabdomyolysis- due to reported 15 hour down time -CPK 2127-->2929. Renal function within normal limits -continue IVF -follow CK # elevated troponin -no chest pain, EKG without acute ischemic changes. Trope 44 -->50 -doubt ACS, likely related to rhabdo -monitor on telemetry # acute hypoglycemia-resolved on admission -POC per EMS 33, received IV dextrose. On arrival glucose 156 -no history of diabetes, likely related to infection -monitor POC, hypoglycemic protocol in place. Continue D5/LR # hypertension -hold antihypertensives given concern for acute CVA to allow for permissive hypertension # mood disorder -continue home meds. # COPD -no exacerbation, albuterol p.r.n. # RLS -gabapentin DVT prophylaxis- lovenox Full code Requires ongoing inpt stay due to CVA with ongoing significant deficits requiring further imaging, expert consultation. Also requires ongoing iv abx due to uti with sepsis awaiting final cultures Quality Stroke Does the patient have a stroke diagnosis?: Yes Reason for No Anti-thrombotic by Day Two: Drug treatment not indicated VTE Prior VTE?: No VTE Risk Level:: Medical - moderate - high VTE Device Contraindication: Treatment Not Indicated VTE Drug Contraindication: N/A - Med Ordered
[2023-12-15 08:41] LABS: Glucose, Whole Blood 124 mg/dL (60-115)
--- NOTE | 2023-12-15 09:52 | MHC.CM.PN ---
CM ATTEMPTED TO MEET W/PT HOWEVER PT GETTING BEDSIE ECCHO, CM WILL REVISIT.
[2023-12-15 11:35] LABS: Glucose, Whole Blood 117 mg/dL (60-115)
[2023-12-15] MEDS: Aspirin Enteric Coated 81 MG TABLET.DR PO (13:22)
--- NOTE | 2023-12-15 14:33 | PM.NEUROCN ---
History of Present Illness Data of Consult Service Date: 12/15/23 Primary Care Provider: Audi Woods MD [facility] Reason for consult: stroke This is a 73-year-old female with history of lymphedema, chronic bilateral lower extremity weakness, hypertension, hyperlipidemia, GERD, COPD not on home O2, restless legs syndrome with history of vulvar cancer presented to the ED via EMS after being found by her friend face down on the ground incontinent of urine that was foul smelling and noted right-sided weakness and right facial droop. Apparently he had last seen her around 19:00 last night in a normal state of health. On EMS arrival, POC was 33 and received dextrose. The patient was oriented to self and place, but mumbling speech, very lethargic and generally weak, worse on the right side with right sided facial droop. Right side of face is swollen including eye with mild erythema. She is mildly tachycardic around 100 and slightly hypertensive at. No fevers. No leukocytosis. Renal function normal, electrolyte levels normal except for chloride 110. Random glucose on arrival 153. Lactic acid 2.4. Total CK 2027, troponin 44. Urinalysis indicative of infection with 1+ leukocytes, positive nitrites, 1+ blood, positive urinary sediment, 4+ bacteria. There is also 1+ protein and glucosuria. Negative for COVID-19. CTA showed no significant stenosis in neck or intracranial circulation. MRI shows an acute ischemic infarct in left basal ganglia and deep periventricular white matter. [facility] Past Medical History Medical History History of cancer of vulva Psoriasis Depression Lymphedema due to chronic inflammation Morbid obesity with BMI of 40.0-44.9, adult Restless leg syndrome Vitamin D deficiency Urinary incontinence Smoker COPD (chronic obstructive pulmonary disease) GERD without esophagitis Pure hypercholesterolemia Benign essential hypertension Family History Family History Father No problems noted. Mother Diabetes Sister No problems noted. Sister Breast cancer Brother Kidney malignancy Brother Kidney malignancy Surgical History Surgical History History of vulvectomy Social History Social History Household Members: None Housing: Apartment Unable to assess alcohol history related to: Unable to respond Alcohol intake: current Alcohol intake frequency: holidays/special occasions only Alcohol type: wine Patient Tobacco Use Status: Current everyday Tobacco user Tobacco use type: Cigarette Cigarette Packs Per Day: 0.5 Cigarettes Per Day: 5 e-Cigarette/Vaping Use: Never Used Second Hand Smoke Exposure: Yes service: No Current occupational status: 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 Cognitive needs: No Hearing needs: No Vision needs: Yes Meds Allergies Allergy/AdvReac Type Severity Reaction Status Date / Time doxycycline Allergy Unknown Unknown Verified 12/14/23 18:24 prednisone Allergy Unknown Unknown Verified 12/14/23 18:24 Active Medications: Current Medications Acetaminophen (Acetaminophen 325 Mg Tablet) 650 mg PO Q6H PRN PRN Reason: Pain, Mild (Pain Scale 1-3), fever or headache Aspirin (Aspirin Enteric Coated 81 Mg Tablet.Dr) 81 mg PO DAILY [facility] Last Admin: 12/15/23 13:22 Dose: 81 mg Calcium Carbonate (Calcium Carbonate 750 Mg Tab.Chew) 750 mg PO Q4H PRN PRN Reason: Heartburn Enoxaparin Sodium (Enoxaparin Sodium 40 Mg/0.4 Ml Syringe) 40 mg SUBCUT Q24H [facility] Last Admin: 12/14/23 22:20 Dose: 40 mg Glucose (Glucose Gel 15 Gm Gel..Gram.) 15 gm PO Q15M PRN; Protocol PRN Reason: per Hypoglycemia Standing Ord. Hydrocortisone (Hydrocortisone 1 % Cream 28.35 Gm Tube) 1 appl TOPICAL BID PRN PRN Reason: rash Hydroxyzine HCl (Hydroxyzine Hcl 25 Mg Tablet) 25 mg PO BEDTIME PRN PRN Reason: anxiety Dextrose/Lactated Ringer's (D5lr) 1,000 mls @ 125 mls/hr IVCONT .Q8H [facility] Last Infusion: 12/15/23 13:27 Dose: 0 mls/hr Dextrose (D10) 250 mls @ 750 mls/hr IV Q15M PRN; Protocol PRN Reason: per Hypoglycemia Standing Ord. Ceftriaxone Sodium 1 gm/ (Sodium Chloride) 50 mls @ 100 mls/hr IV Q24H [facility] Magnesium Hydroxide (Milk Of Magnesia 30 Ml Oral.Susp) 30 ml PO DAILY PRN PRN Reason: Constipation Melatonin (Melatonin 3 Mg Tablet) 6 mg PO BEDTIME PRN PRN Reason: Insomnia Sertraline HCl (Sertraline Hcl 25 Mg Tablet) 25 mg PO DAILY [facility] Sodium Chloride (0.9 % Sodium Chloride Flush 3 Ml Syringe) 3 ml IVFLUSH QSHIFT [facility] Last Admin: 12/15/23 09:01 Dose: Not Given Vitamin D (Cholecalciferol (Vitamin D3) 25 Mcg Tablet) 50 mcg PO DAILY [facility] Physical Exam Vital Signs: Vital Signs: Last Vital Signs Temp 97.9 F 12/15/23 11:23 Pulse 84 12/15/23 11:23 Resp 18 12/15/23 11:23 BP 165/72 H 12/15/23 11:23 Pulse Ox 95 12/15/23 11:23 O2 Del Method Room Air 12/15/23 11:23 O2 Flow Rate 3 12/14/23 19:14 Oxygen Flow Rate 2 12/14/23 18:23 BMI result Body Mass Index 35.0 Neuro: Other: She is alert and comprehends well but has dysarthria and soft speech. She has right facial droop and right hemiparesis graded at 2/5 in the right upper extremity with a handy worker of 4/5 and 2-3/5 in the right lower extremity. Results Labs 12/15/23 04:34 12/15/23 04:34 Labs: Short CBC 12/14/23 12/15/23 Range/Units 18:44 04:34 WBC 10.0 8.8 (4.8-10.8) X10*3/uL Hgb 14.0 12.4 (12.0-16.0) g/dl Hct 40.3 36.9 L (37.0-47.0) % Plt Count 272 246 (160-400) X10*3/uL BMP 12/14/23 12/15/23 18:44 04:34 Sodium 140 143 Potassium 3.6 3.4 Chloride 110 H 114 H Carbon Dioxide 24 23 BUN 19 H 12 Creatinine 0.64 0.65 Calcium 8.9 8.6 Cardiac Enzymes 12/14/23 12/15/23 Range/Units 18:44 04:34 Total Creatine Kinase 2127 H 2929 H (26-140) U/L Liver Function 12/14/23 Range/Units 18:44 Total Bilirubin 0.5 (0.0-1.0) mg/dL AST 47 H (5-31) U/L ALT 18 (0-31) U/L Alkaline Phosphatase 84 (39-117) U/L Albumin 3.5 (3.5-5.0) g/dL Urine 12/14/23 Range/Units 18:44 Urine Color Yellow Urine Appearance Cloudy Urine pH 6.0 (5.0-9.0) Ur Specific [place] 1.025 (1.005-1.025) Urine Protein 30 (1+) H (Neg-Trace) mg/dL Urine Glucose (UA) 250 H (Negative) mg/dL Microbiology Microbiology Results: Microbiology 12/14/23 19:16 Urine clean catch - Clean Catch Midstream Urine Culture - Preliminary Gram negative kemi Assessment and Plan (1) CVA (cerebral vascular accident): Status: Acute Acute ischemic infarct involving the left basal ganglia and deep white matter in the periventricular distribution extending into the posterior limb of the internal capsule. No evidence of carotid disease or major occlusions in the intracranial distribution. TNK was not used as the patient presented outside the window. Recommendation: Spaced therapy PT, OT. Aspirin 81 mg a day and Plavix 75 mg a day. He atorvastatin 80 mg a day. Procedures Date of Service Date of Service: 12/15/23
[2023-12-15 15:58] LABS: Glucose, Whole Blood 102 mg/dL (60-115)
[2023-12-15] MEDS: 0.9 % Sodium Chloride Flush 3 ML SYRINGE IVFLUSH ×2 (16:05→20:29)
--- NOTE | 2023-12-15 16:51 | MHC.SP.ADU ---
Referring provider: Patti Martin Reason for Referral: ?acute stroke Type of Treatment: 29527 Clinical Swallowing Evaluation Date of Plan of Treatment: 12/15/23 Onset of Symptoms/Illness: 12/14/23 Date Treatment Started: 12/15/23 Medical Diagnosis: (1) Rhabdomyolysis: Status: Acute (2) CVA (cerebral vascular accident): Status: Acute (3) Sepsis secondary to UTI: Status: Acute Primary Speech Language Diagnosis: R13.10 Dysphagia History Pt is 73 year old female who presented to ED on 12/13 after being found on floor incontinent w/ right sided weakness, right facial droop, and slurred speech. CXR notes a ?infection. Pt's hx notable for COPD and GERD. Pt is NPO for lethargic state. Brain MRI pending. Medical History: History of cancer of vulva Psoriasis Depression Lymphedema due to chronic inflammation Morbid obesity with BMI of 40.0-44.9, adult Restless leg syndrome Vitamin D deficiency Urinary incontinence Smoker COPD (chronic obstructive pulmonary disease) GERD without esophagitis Pure hypercholesterolemia Benign essential hypertension Respiratory Needs: Room Air Patient Orientation: Unable to Assess Social History: Current Living Situation: [facility] Assistive Devices in use: UNK Past Speech Language Therapy: UNK Swallowing History: Dysphagia Specific: Risk of Aspiration Comments: Pt edentulous, did not put in dentures for evaluation. Pt expressed preference for trialing puree solids only on this date. Pt tolerated 1/4 tsp to 1/2 tsp bites of puree with no visible residue. No overt clinical s/s aspiration. Pt tolerated small sips of liquid via teaspoon when cued to sip from spoon with no overt clinical s/s aspiration. Pt presenting w/ difficulty getting liquid from straw. Pt required 1-1 assistance throughout trials. Pre-eval Risk for Aspiration: Lethargy, Reduced Cognition, Weak Voice Pre-evaluation Dietary Consistencies: NPO Pre-eval Liquid Intake: NPO Pre-eval Medication Intake: NPO Reported Speech, Language, Cognition difficulties: Speaking Swallowing Assessment Speech Production: Observations: Pt presenting w/ severely quiet and highly unintelligible speech. This clinician cued pt to produce AMRs; /p/ and /t/ were slow and imprecise. Pt unable to produce /k/ phoneme when cued. SMR not attempted on this date. Informal Voice Assessment: Voice Loudness: Severely Soft/Quiet Impressions and Recommendations Summary: Presenting w/ weak voice and slow speech w/ right side droop. Pt presents w/ severely weak cough which increases risk of aspiration. Recommend START diet of PUREE solids (NDD1) and THIN liquids via small bites/sips on teaspoon only. Pt having difficulty sucking liquid from straw. Requires 1-1 assist. Pt accepting limited PO; unlikely to meet nutritional needs via PO at this time. Recommend alternative means of nutrition be considered. Recommend pills via IV if possible d/t limited PO intake, accepting only small bites. Otherwise, pills whole/crushed in puree. CUSTOMER SUPPORT ANALYST to continue to follow for dysphagia and further evaluation of speech/lang. 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
[2023-12-15] MEDS: cefTRIAXone sodium 1 GM in 0.9 % Sodium Chloride 50 ML IV (20:29)
[2023-12-15] MEDS: Enoxaparin Sodium 40 MG/0.4 ML SYRINGE SUBCUT (20:29)
[2023-12-15] MEDS: Acetaminophen 325 MG TABLET 650 MG PO (23:04)
[2023-12-15 23:53] LABS: Glucose, Whole Blood 115 mg/dL (60-115)
[2023-12-16 03:33] VITALS: BP 139/76; PULSE 60; RESP 20; TEMP 36.2; O2SAT 98
[2023-12-16] MEDS: Dextrose 5 % and Lactated Ring 1,000 ML 125 ML IVCONT (06:21)
[2023-12-16 06:35] LABS: Glucose, Whole Blood 104 mg/dL (60-115)
[2023-12-16 07:11] VITALS: BP 143/78; PULSE 87; RESP 20; TEMP 36.2; O2SAT 95
[2023-12-16 07:16] LABS: Anion Gap 11 (12-20); Blood Urea Nitrogen 8 mg/dL (9-16); Calcium 8.8 mg/dL (8.4-10.2); Carbon Dioxide 23 mmol/L (22-29); Chloride 112 mmol/L (96-108); Creatinine Clr Calc Pharmacy 70.7; Estimated Glomerular Filt Rate > 60; Glucose Random 108 mg/dL (60-115); Potassium 3.9 mmol/L (3.3-5.1); Sodium 142 mmol/L (135-145)
--- NOTE | 2023-12-16 08:16 | MHC.CM.PN ---
LATE ENTRY NOTE FOR 12/15/23, IMM 12/15/23, EMR REVIEWED, PT W/CVA, CM MET W/PT HOWEVER, PT IS VERY DIFFICULT TO UNDERSTAND D/T CVA, PT REPORTS SHE LIVES ALONE, IS INDEP W/CARE, USES A WALKER AND HAS A SHOWER CHAIR AT HOME, NO HOME SERVICES, PT DOES BELIEV SHE HAS A HCP HOWEVER D/T SPEECH ISSUES CM UNABLE TO VERIFY WHO IT IS. PT DOES VERIFY PCP ON FILE IS CORRECT. ANTIC PT WILL NEED AR VS STR AND BLS TRANSPORT ONCE MEDICALLY CLEARED.
[2023-12-16] MEDS: Sertraline HCL 25 MG TABLET PO (09:06)
[2023-12-16] MEDS: Clopidogrel Bisulfate 75 MG TABLET PO (09:06)
[2023-12-16] MEDS: Acetaminophen 325 MG TABLET 650 MG PO (09:06)
[2023-12-16] MEDS: Cholecalciferol (Vitamin D3) 25 MCG TABLET 50 MCG PO (09:06)
[2023-12-16] MEDS: Aspirin Enteric Coated 81 MG TABLET.DR PO (09:07)
[2023-12-16] MEDS: 0.9 % Sodium Chloride Flush 3 ML SYRINGE IVFLUSH ×3 (09:07→20:17)
--- NOTE | 2023-12-16 09:32 | MHC.SL.SWA ---
Speech Pathologist Impression: Risk of Aspiration Risk of Aspiration Due to: Lethargy Reduced Cognition Weak Voice Dysphasia Diet Status: Recommend DOWNGRADE lqiuids to NECTAR THICK, continue on PUREE consistency with pills crushed in puree. Liquid Consistency and Strategies for Safe Swallow: Liquid Intake Recommendation: Rentchler Thick Liquid Intake Strategies: Small Sips Liquids by Teaspoon Only Solid Food Consistency: Dietary Recommendations: Pureed (NDD1) Additional Modifications to Solid Foods: Patient requires 1-1 feed/FULL ASSIST, will need drape of towel for feeding due to oral containment issues. Provide liquids by tsp primarily, trial controlled cup sips periodically, NO STRAWS. Oral Medication Intake: Crushed with Puree Please contact the pharmacy regarding appropriate crushable or liquid drug formulations that are available whenever modified delivery is recommended. Compensatory Strategies and Precautions to be Taken for Safe Swallow: Sitting Upright (90 deg) No Straw Liquids from Spoon Small Bites and Sips Alternate Liquids/Solids Rate of Ingestion Change Supervision While Eating and Drinking for Safe Swallow: Total Assistance (1:1) Foods to Avoid: Swallowing Recommended Treatments: Compens. Strategy Educat. Recommendation for Speech: Inpatient Speech Therapy Comment: Patient seen this morning for toleration of recommended diet of Puree with thin liquids by tsp only. Patient was awake and alert with breakfast tray set aside on table waiting to be assisted with her meal. Patient with c/o leg pain, evidencing discomfort with this throughout. Patient was given tsps of solids (pureed eggs, pureed bananas). On this consistency, patient produced a tongue pumping pattern to propell the bolus, with a moderately prolonged oral phase, a mild delay of swallow and reduced laryngeal elevation palpated on swallow. No evidence of clinical signs of aspiration on puree throughout the meal. Patient was given coffee by tsp amounts, with poor oral containment noted periodically (liquids spilling from mouth), mild delay of oral phase, mild delay of swallow. Patient was noted to both have increased upper airway noise, wetness and also coughed repeatedly after being given several tsps. On trial of controlled cup sip of thin, liquid poured from her mouth, and patient repetedly coughed after swallow. Liquids were then thickened to Rentchler thick consistency and given primarily by tsp, with marked improvement with oral containment, stilll evident delay of swallow, no clinical signs of aspiration (full cup of OJ administered). Patient was also trialed with controlled cup sip at the consistency with, again, improved oral containment/management, no clinical signs of aspiration. Recommend DOWNGRADE lqiuids to NECTAR THICK, continue on PUREE consistency with pills crushed in puree. PRECAST MOLDER adjusted liquid consistency in chart, on the white board, and advised RN. Time allowing, PRECAST MOLDER will return for further language testsing later today. Frequency/Duration: Date Range for Service Req: Timeline to reassess: Environmental Services Lead Clinican/Clinical Fellow: No Supervisory Statement: I have reviewed and agree with the student/clinical fellow's documentation: N/A Speech Language Pathologist: Mercy [place] M.A., CCC-PRECAST MOLDER
[2023-12-16 11:09] VITALS: BP 158/72; PULSE 74; RESP 18; TEMP 36.3; O2SAT 96
[2023-12-16 11:22] LABS: Glucose, Whole Blood 117 mg/dL (60-115)
[2023-12-16] MEDS: Cyclobenzaprine HCl 5 MG TABLET PO (12:07)
--- NOTE | 2023-12-16 13:24 | HO.PM.IMPN ---
Subjective Subjective Date of Service: 12/16/23 Interval History: Seen and examined this morning Follow-up for acute stroke reporting cramping RLE Review of Systems Review of Systems: Yes all other systems are reviewed and are negative Constitutional Constitutional: Denies chills and Denies fever(s) Cardiovascular Cardiovascular: Denies chest pain and Denies palpitations Endocrine Endocrine: Denies palpitations Physical Exam Vital Signs: Vital Signs: Last Vital Signs Temp 97.3 F 12/16/23 11:09 Pulse 74 12/16/23 11:09 Resp 18 12/16/23 11:09 BP 158/72 H 12/16/23 11:09 Pulse Ox 96 12/16/23 11:09 O2 Del Method Room Air 12/16/23 11:09 O2 Flow Rate 3 12/14/23 19:14 Oxygen Flow Rate 2 12/14/23 18:23 BMI result Body Mass Index 31.6 Const: General: alert and awake Nutritional Appearance: overweight Resp: Effort & Inspection: normal respiratory effort, able to speak in complete sentences, no respiratory distress and no use of accessory muscles Cardio: Rate: regular rate GI: Inspection: No distended Palpation (GI): Soft to palpation Neuro: Other: able to move left extremities; cramping right leg; RUE with spacticity; persistent right facial droop Extrem: General: Yes no pedal edema Objective Data Active Medications Acetaminophen (Acetaminophen 325 Mg Tablet) 650 mg PO Q6H PRN PRN Reason: Pain, Mild (Pain Scale 1-3), fever or headache Last Admin: 12/16/23 09:06 Dose: 650 mg Documented By: MARCI Aspirin (Aspirin Enteric Coated 81 Mg Tablet.) 81 mg PO DAILY [facility] Last Admin: 12/16/23 09:07 Dose: 81 mg Documented By: MARCI Baclofen (Baclofen 10 Mg Tablet) 5 mg PO TID [facility] Calcium Carbonate (Calcium Carbonate 750 Mg Tab.Chew) 750 mg PO Q4H PRN PRN Reason: Heartburn Clopidogrel Bisulfate (Clopidogrel Bisulfate 75 Mg Tablet) 75 mg PO DAILY [facility] Last Admin: 12/16/23 09:06 Dose: 75 mg Documented By: MARCI Enoxaparin Sodium (Enoxaparin Sodium 40 Mg/0.4 Ml Syringe) 40 mg SUBCUT Q24H [facility] Last Admin: 12/15/23 20:29 Dose: 40 mg Documented By: BRITNEY Glucose (Glucose Gel 15 Gm Gel..Gram.) 15 gm PO Q15M PRN; Protocol PRN Reason: per Hypoglycemia Standing Ord. Hydrocortisone (Hydrocortisone 1 % Cream 28.35 Gm Tube) 1 appl TOPICAL BID PRN PRN Reason: rash Hydroxyzine HCl (Hydroxyzine Hcl 25 Mg Tablet) 25 mg PO BEDTIME PRN PRN Reason: anxiety Dextrose/Lactated Ringer's (D5lr) 1,000 mls @ 80 mls/hr IVCONT .[id number] [facility] Last Admin: 12/16/23 06:21 Dose: 125 mls/hr Documented By: BRITNEY Dextrose (D10) 250 mls @ 750 mls/hr IV Q15M PRN; Protocol PRN Reason: per Hypoglycemia Standing Ord. Ceftriaxone Sodium 1 gm/ (Sodium Chloride) 50 mls @ 100 mls/hr IV Q24H [facility] Last Infusion: 12/15/23 21:10 Dose: Infused Documented By: BRITNEY Magnesium Hydroxide (Milk Of Magnesia 30 Ml Oral.Susp) 30 ml PO DAILY PRN PRN Reason: Constipation Melatonin (Melatonin 3 Mg Tablet) 6 mg PO BEDTIME PRN PRN Reason: Insomnia Sertraline HCl (Sertraline Hcl 25 Mg Tablet) 25 mg PO DAILY [facility] Last Admin: 12/16/23 09:06 Dose: 25 mg Documented By: MARCI Sodium Chloride (0.9 % Sodium Chloride Flush 3 Ml Syringe) 3 ml IVFLUSH QSHIFT [facility] Last Admin: 12/16/23 09:07 Dose: 3 ml Documented By: MARCI Vitamin D (Cholecalciferol (Vitamin D3) 25 Mcg Tablet) 50 mcg PO DAILY [facility] Last Admin: 12/16/23 09:06 Dose: 50 mcg Documented By: MARCI Labs 12/15/23 04:34 12/16/23 06:51 Labs: Laboratory Results - last 24 hr 12/15/23 12/15/23 12/16/23 15:47 23:47 06:17 Hold Purple Top Anion Gap Estim Creat Clear Calc Estimated GFR POC Glucose 102 115 104 Random Glucose Calcium Total Creatine Kinase 12/16/23 12/16/23 06:51 11:02 Hold Purple Top SEE NOTE Anion Gap 11 L Estim Creat Clear Calc 70.7 Estimated GFR > 60 POC Glucose 117 H Random Glucose 108 Calcium 8.8 Total Creatine Kinase 3064 H Microbiology Microbiology Results: Microbiology 12/14/23 19:16 Urine Culture - Final Urine clean catch - Clean Catch Midstream Escherichia coli 12/14/23 18:54 Blood Culture - Preliminary Blood - Venous No growth after 24 hours. 12/14/23 18:54 Blood Culture - Preliminary Blood - Venous No growth after 24 hours. Assessment and Plan (1) CVA (cerebral vascular accident): Status: Acute (2) Sepsis secondary to UTI: Status: Acute (3) Rhabdomyolysis: Status: Acute Plan 73-year-old female with history of lymphedema, chronic bilateral lower extremity weakness, hypertension, hyperlipidemia, GERD, COPD not on home O2, restless legs syndrome with history of vulvar cancer admitted for further management of acute metabolic encephalopathy with UTI, rhabdomyolysis, and concern for acute CVA Right sided weakness/facial droop/aphasia due to acute CVA LKWT 7pm 12/12. Outside window for TNK. NIHSS on admission [address] negative for acute intracranial abnormality but shows extensive chronic white matter microangiopathic with scattered presumed chronic age-indeterminate infarcts in the basal ganglia, yan radiata and corpus callosum with diffuse brain parenchymal volume loss. though final radiology read is pending. CTA head/neck negative for hemodynamically significant stenosis or large vessel occlusion MRI - acute infarct of the left yan radiata, posterior limb of the left internal capsule and left lentiform nucleus. No evidence of hemorrhagic transformation continue 81 mg daily, plavix lipid profile shows LDL 120. Hold on statin for now given rhabdo seen by neuro - rec ASA, plavix and statin PT/OT- recommending acute rehab VAMP STITCHER - pureed diet with one-to-one full assist echo -hyperdynamic EF, moderate septal asymmetric hypertrophy with increased tone RUE and, cramping rle - will start gabapentin and obtain EEG to rule out seizure activity per neuro rec #Acute UTI with acute metabolic encephalopathy and sepsis Lactic acidosis due to rhabdo/hypoperfusion, not severe sepsis Urine culture growing E coli - IV ceftriaxone (initiated 12/13) # acute rhabdomyolysis- due to reported 15 hour down time -CPK 2127-->2929 -> 3064. Renal function within normal limits -continue IVF, will decrease rate -repeat CK in am # elevated troponin -no chest pain, EKG without acute ischemic changes. Trope 44 -->50 -doubt ACS, likely related to rhabdo -monitor on telemery # acute hypoglycemia-resolved on admission -POC per EMS 33, received IV dextrose. On arrival glucose 156 -no history of diabetes, likely related to infection -monitor POC, hypoglycemic protocol in place. Continue D5/LR # hypertension hold antihypertensives given concern for acute CVA to allow for permissive hypertension Lisinopril on hold # mood disorder -continue soloft # COPD -no exacerbation, albuterol p.r.n. # RLS Unclear if patient was still taking gabapentin, not confirmed on med reconciliation, being resumed due to above spasticity DVT prophylaxis- lovenox Full code Requires ongoing inpt stay due to CVA with ongoing significant deficits requiring further imaging, expert consultation. Also requires ongoing iv abx due to uti with sepsis awaiting final cultures Quality Stroke Does the patient have a stroke diagnosis?: Yes Reason for No Anti-thrombotic by Day Two: Drug treatment not indicated VTE Prior VTE?: No VTE Risk Level:: Medical - moderate - high VTE Device Contraindication: Treatment Not Indicated VTE Drug Contraindication: N/A - Med Ordered
[2023-12-16] MEDS: Dextrose 5 % and Lactated Ring 1,000 ML 80 ML IVCONT (14:51)
[2023-12-16] MEDS: Gabapentin 100 MG CAPSULE PO ×2 (14:51→20:31)
--- NOTE | 2023-12-16 14:59 | HO.WOUND ---
Wound Consult: Initial 73yr old?female admitted to [facility] on 12/14/23 - See progress notes and H&P for detailed history.? Wound consult placed for back, buttock and abdomen.? Patient agreeable to assessment and photo documentation.? Abdomen MASD - no fungal dermatitis noted - no open wound noted - recommend barrier cream or interdry application for moisture management Buttock and sacrum Etiology: MASD ?? Wound Bed: red dry flaking tissue no open tissue noted - remains blanchable - mirrored edges noted - dark pigmented areas remain blanchable Drainage / Odor: None Edges: ? mirrored Reema wound: Intact - there is one small darkly pigmented area central sacral area that is slow to gerber on admission -given pt was found down will monitor for pressure injury declaration as of right now does not appear to be pressure related - ? No Induration, Fluctuance or Warmth noted Pain: denies Goals of Treatment: ? Off Load Pressure and barrier cream to protect from friction and moisture Right Posterior Shoulder - Bruise - intact not consistent with DTI at this time - no topical interventions needed at this time. Recommendations: 1. Turn and Reposition every 2 hours and as needed for patient comfort.? Use pillows or wedges to support off loading positions. 2. Off Load all bony prominences with use of pillows and heel boots if needed.? Apply Preventative foams where needed. ? 3. Monitor for incontinence and moisture control, use barrier creams when needed for prevention and treatment. 4. Provide adequate and supplemental nutrition.? 5. Order low air loss mattress. 6. When applicable maintain blood glucose levels per Providers order. 7. Abdomen - Tuck Interdry AG Sheet into skin fold to wick and translocate moisture away from skin fold.? Be sure to leave at least 2 inch of fabric exposed outside of skin fold.? Change when soiled. 8. Buttock and sacrum - Off Load Pressure - Cleanse with PH balance spray or wipes, pat dry. ?Apply thin layer of barrier cream to affected area twice daily and after each episode of incontinence. Re-consult wound care Nurse for wound deterioration or wound changes.
--- NOTE | 2023-12-16 15:21 | MHC.CM.PN ---
CM met with pt. to ask her choice for Acute rehab, [facility] asked if pt. has supports at home, pt. said that she lives alone and she is going to arrange to have some help at home.
[2023-12-16 15:24] VITALS: BP 150/78; PULSE 92; RESP 18; TEMP 36.7; O2SAT 98
[2023-12-16] MEDS: traMADoL HCL 50 MG TABLET 25 MG PO (15:55)
[2023-12-16 19:33] VITALS: BP 169/71; PULSE 94; RESP 18; TEMP 36.9; O2SAT 96
[2023-12-16] MEDS: cefTRIAXone sodium 1 GM in 0.9 % Sodium Chloride 50 ML IV (20:30)
[2023-12-16] MEDS: Enoxaparin Sodium 40 MG/0.4 ML SYRINGE SUBCUT (20:33)
--- NOTE | 2023-12-16 20:45 | PC.NURSE ---
Addendum entered by Ashley Burnham RN 12/17/23 04:51: Patient hypertensive 180 SBP at 03:58 vitals. Aymptomatic. Woken from sleep for vitals. No complaints of pain at the time. Dr. Read notified, no new orders. 04:45, pt c/o pain in RLE again. Initially refused tylenol and ice/heat, repositioning. After discussion patient requested tylenol. Given with effectiveness pending. Addendum entered by Ashley Burnham RN 12/16/23 21:08: Dr. Read rounded to bedside with fha underwriter present, MD observed RLE. Patient observed resting in bed with eyes closed on rounding, aroused/opened eyes on entering room. Patient appears more comfortable at this time, no further groaning noted. MD advised tylenol though pt is refusing still. Original Note: Assumed care of patient at 19:00. On initial interaction patient groaning and reporting 7/10 stabbing/sharp pain in right anterior lower leg. Site noted to be red and warm to touch. +equal distal pulses. Pt not yet due for tramadol that is ordered q6h. Pt offered prn tylenol though refused. Given scheduled gabapentin, pt repositioned and leg elevated. Covering Dr. Read notified of previous and photo of leg sent via [employer]. Awaiting orders at this time.
[2023-12-16 23:51] LABS: Glucose, Whole Blood 112 mg/dL (60-115)
[2023-12-17] VITALS (11 sets, daily range): BP systolic 132–185; BP diastolic 78–95; PULSE 63–81; RESP 16–20; TEMP 36.2–36.7; O2SAT 93–99
[2023-12-17] MEDS: traMADoL HCL 50 MG TABLET 25 MG PO ×3 (01:12→16:47)
[2023-12-17] MEDS: Dextrose 5 % and Lactated Ring 1,000 ML 80 ML IVCONT (03:50)
[2023-12-17] MEDS: Acetaminophen 325 MG TABLET 650 MG PO ×3 (04:47→21:14)
[2023-12-17 06:03] LABS: Glucose, Whole Blood 122 mg/dL (60-115)
[2023-12-17 08:00] LABS: Hematocrit 35.8 % (37.0-47.0); Mean Corpuscular HGB Conc 33.5 g/dl (31.0-35.0); Mean Corpuscular Hemoglobin 33.4 pg (27.0-33.0); Mean Corpuscular Volume 99.7 fL (80.0-98.0); Mean Platelet Volume 10.1 fL (9.4-12.3); Platelet Count 248 X10*3/uL (160-400); Red Blood Count 3.59 X10*6/uL (4.20-5.50); Red Cell Distribution Width 13.6 % (11.0-16.0); White Blood Count 8.3 X10*3/uL (4.8-10.8)
[2023-12-17 08:04] LABS: Anion Gap 10 (12-20); Blood Urea Nitrogen 9 mg/dL (9-16); Calcium 8.5 mg/dL (8.4-10.2); Carbon Dioxide 24 mmol/L (22-29); Chloride 111 mmol/L (96-108); Creatinine Clr Calc Pharmacy 76.7; Estimated Glomerular Filt Rate > 60; Glucose Random 119 mg/dL (60-115); Potassium 3.6 mmol/L (3.3-5.1); Sodium 141 mmol/L (135-145)
[2023-12-17] MEDS: Cholecalciferol (Vitamin D3) 25 MCG TABLET 50 MCG PO (09:40)
[2023-12-17] MEDS: 0.9 % Sodium Chloride Flush 3 ML SYRINGE IVFLUSH ×2 (09:40→21:15)
[2023-12-17] MEDS: Gabapentin 100 MG CAPSULE PO ×3 (09:40→21:14)
[2023-12-17] MEDS: lisinopriL 20 MG TABLET PO (09:40)
[2023-12-17] MEDS: Sertraline HCL 25 MG TABLET PO (09:40)
[2023-12-17] MEDS: Aspirin Enteric Coated 81 MG TABLET.DR PO (09:40)
[2023-12-17] MEDS: Clopidogrel Bisulfate 75 MG TABLET PO (09:41)
[2023-12-17 10:53] LABS: Glucose, Whole Blood 115 mg/dL (60-115)
--- NOTE | 2023-12-17 11:07 | MHC.CM.PN ---
EMR reviewed and per MD rounds, pt is not medically cleared for discharge due to monitoring CPK labs that are trending upwards.
[2023-12-17] MEDS: Lactated Ringers 1,000 ML 100 ML IVCONT (11:37)
--- NOTE | 2023-12-17 11:38 | HO.PM.IMPN ---
Subjective Subjective Date of Service: 12/17/23 Interval History: seen and examined this morning follow up for acute stroke, rhabdo reports right leg pain, less cramping; reports chronic leg pain at baseline - takes tramadol Review of Systems Review of Systems: Yes all other systems are reviewed and are negative Constitutional Constitutional: Denies chills and Denies fever(s) Physical Exam Vital Signs: Vital Signs: Last Vital Signs Temp 97.1 F 12/17/23 10:52 Pulse 63 12/17/23 10:52 Resp 18 12/17/23 10:52 BP 176/78 H 12/17/23 10:52 Pulse Ox 99 12/17/23 10:52 O2 Del Method Room Air 12/17/23 10:52 O2 Flow Rate 3 12/14/23 19:14 Oxygen Flow Rate 2 12/14/23 18:23 BMI result Body Mass Index 31.6 Const: General: alert and awake Nutritional Appearance: overweight Resp: Effort & Inspection: normal respiratory effort, able to speak in complete sentences, no respiratory distress and no use of accessory muscles Auscultation: clear to auscultation bilaterally Cardio: Rate: regular rate GI: Inspection: No distended Palpation (GI): Soft to palpation and nontender Skin: Other: erythema anterior right jerez corresponding to area of pressure where she crosses her left leg over right, no warmth to suggest infection Neuro: Other: able to move left extremities; RLE weakness; RUE with spacticity; persistent right facial droop Extrem: General: Yes no pedal edema Objective Data Active Medications Acetaminophen (Acetaminophen 325 Mg Tablet) 650 mg PO Q6H PRN PRN Reason: Pain, Mild (Pain Scale 1-3), fever or headache Last Admin: 12/17/23 04:47 Dose: 650 mg Documented By: AKIL Aspirin (Aspirin Enteric Coated 81 Mg Tablet.Dr) 81 mg PO DAILY [facility] Last Admin: 12/17/23 09:40 Dose: 81 mg Documented By: MARCI Calcium Carbonate (Calcium Carbonate 750 Mg Tab.Chew) 750 mg PO Q4H PRN PRN Reason: Heartburn Clopidogrel Bisulfate (Clopidogrel Bisulfate 75 Mg Tablet) 75 mg PO DAILY [facility] Last Admin: 12/17/23 09:41 Dose: 75 mg Documented By: MARCI Enoxaparin Sodium (Enoxaparin Sodium 40 Mg/0.4 Ml Syringe) 40 mg SUBCUT Q24H [facility] Last Admin: 12/16/23 20:33 Dose: 40 mg Documented By: AKIL Gabapentin (Gabapentin 100 Mg Capsule) 100 mg PO TID [facility] Last Admin: 12/17/23 09:40 Dose: 100 mg Documented By: MARCI Glucose (Glucose Gel 15 Gm Gel..Gram.) 15 gm PO Q15M PRN; Protocol PRN Reason: per Hypoglycemia Standing Ord. Hydrocortisone (Hydrocortisone 1 % Cream 28.35 Gm Tube) 1 appl TOPICAL BID PRN PRN Reason: rash Hydroxyzine HCl (Hydroxyzine Hcl 25 Mg Tablet) 25 mg PO BEDTIME PRN PRN Reason: anxiety Dextrose (D10) 250 mls @ 750 mls/hr IV Q15M PRN; Protocol PRN Reason: per Hypoglycemia Standing Ord. Ceftriaxone Sodium 1 gm/ (Sodium Chloride) 50 mls @ 100 mls/hr IV Q24H [facility] Last Infusion: 12/16/23 21:00 Dose: Infused Documented By: AKIL Lactated Ringer's (Lr) 1,000 mls @ 100 mls/hr IVCONT .Q10H [facility] Last Admin: 12/17/23 11:37 Dose: 100 mls/hr Documented By: TL Lisinopril (Lisinopril 20 Mg Tablet) 20 mg PO DAILY [facility]; Protocol Last Admin: 12/17/23 09:40 Dose: 20 mg Documented By: MARCI Magnesium Hydroxide (Milk Of Magnesia 30 Ml Oral.Susp) 30 ml PO DAILY PRN PRN Reason: Constipation Melatonin (Melatonin 3 Mg Tablet) 6 mg PO BEDTIME PRN PRN Reason: Insomnia Sertraline HCl (Sertraline Hcl 25 Mg Tablet) 25 mg PO DAILY [facility] Last Admin: 12/17/23 09:40 Dose: 25 mg Documented By: MARCI Sodium Chloride (0.9 % Sodium Chloride Flush 3 Ml Syringe) 3 ml IVFLUSH QSHIFT [facility] Last Admin: 12/17/23 09:40 Dose: 3 ml Documented By: MARCI Tramadol HCl (Tramadol Hcl 50 Mg Tablet) 25 mg PO Q6H PRN PRN Reason: Pain, Moderate(Pain Scale 4-6) Last Admin: 12/17/23 09:41 Dose: 25 mg Documented By: MARCI Vitamin D (Cholecalciferol (Vitamin D3) 25 Mcg Tablet) 50 mcg PO DAILY [facility] Last Admin: 12/17/23 09:40 Dose: 50 mcg Documented By: MARCI Labs 12/17/23 07:46 12/17/23 07:46 Labs: Laboratory Results - last 24 hr 12/16/23 12/17/23 12/17/23 23:42 05:58 06:15 MCV MCH MCHC RDW Plt Count MPV Absolute Nucleated RBC Nucleated RBC % (auto) Hold Purple Top SEE NOTE Anion Gap Estim Creat Clear Calc Estimated GFR POC Glucose 112 122 H Random Glucose Calcium Total Creatine Kinase 4866 H 12/17/23 12/17/23 07:46 10:45 MCV 99.7 H MCH 33.4 H MCHC 33.5 RDW 13.6 Plt Count 248 MPV 10.1 Absolute Nucleated RBC 0.000 Nucleated RBC % (auto) 0.0 Hold Purple Top Anion Gap 10 L Estim Creat Clear Calc 76.7 Estimated GFR > 60 POC Glucose 115 Random Glucose 119 H Calcium 8.5 Total Creatine Kinase Microbiology Microbiology Results: Microbiology 12/14/23 18:54 Blood Culture - Preliminary Blood - Venous No growth after 48 hours. 12/14/23 18:54 Blood Culture - Preliminary Blood - Venous No growth after 48 hours. 12/14/23 19:16 Urine Culture - Final Urine clean catch - Clean Catch Midstream Escherichia coli Assessment and Plan (1) Sepsis secondary to UTI: Status: Acute (2) CVA (cerebral vascular accident): Status: Acute (3) Rhabdomyolysis: Status: Acute Plan 73-year-old female with history of lymphedema, chronic bilateral lower extremity weakness, hypertension, hyperlipidemia, GERD, COPD not on home O2, restless legs syndrome with history of vulvar cancer admitted for further management of acute metabolic encephalopathy with UTI, rhabdomyolysis, and concern for acute CVA Right sided weakness/facial droop/aphasia due to acute CVA LKWT 7pm 12/12. Outside window for TNK. NIHSS on admission [address] negative for acute intracranial abnormality but shows extensive chronic white matter microangiopathic with scattered presumed chronic age-indeterminate infarcts in the basal ganglia, yan radiata and corpus callosum with diffuse brain parenchymal volume loss. though final radiology read is pending. CTA head/neck negative for hemodynamically significant stenosis or large vessel occlusion MRI - acute infarct of the left yan radiata, posterior limb of the left internal capsule and left lentiform nucleus. No evidence of hemorrhagic transformation continue 81 mg daily, plavix lipid profile shows LDL 120. Hold on statin for now given rhabdo seen by neuro - rec ASA, plavix and statin PT/OT- recommending acute rehab [employer] - pureed diet with one-to-one full assist echo -hyperdynamic EF, moderate septal asymmetric hypertrophy with increased tone RUE ?radial nerve palsy -fitted with orthosis by OT cramping rle - started on gabapentin per neuro rec, can titrate prn EEG pending, no obvious seizure activity noted #Acute UTI with acute metabolic encephalopathy and sepsis Lactic acidosis due to rhabdo/hypoperfusion, not severe sepsis Urine culture growing E coli - IV ceftriaxone (initiated 12/13) # acute rhabdomyolysis- due to reported 15 hour down time -CPK 2127 on admission up to 4866 today Renal function remains normal continue IVF nephro consult due to lack of response from IVF follow CPK # elevated troponin -no chest pain, EKG without acute ischemic changes. Trope 44 -->50 -doubt ACS, likely related to rhabdo -monitor on telemery # acute hypoglycemia-resolved on admission POC per EMS 33, received IV dextrose. On arrival glucose 156 no history of diabetes, likely related to infection monitor POC, hypoglycemic protocol in place no further episodes of hypoglycemia # hypertension initially antihypertensives on hold for permissive hypertension in the setting of acute stroke Lisinopril resumed, monitor blood pressure closely, up titrate as needed # mood disorder -continue zoloft # COPD -no exacerbation, albuterol p.r.n. # RLS Unclear if patient was still taking gabapentin, not confirmed on med reconciliation, being resumed due to above cramping/spasticity resumed home dose of tramadol at lower dose, can up titrate prn DVT prophylaxis- lovenox Full code Requires ongoing inpt stay due to CVA with ongoing significant deficits, iv abx due to uti, IVF for persistent rhabdo Quality Stroke Does the patient have a stroke diagnosis?: Yes Reason for No Anti-thrombotic by Day Two: Drug treatment not indicated VTE Prior VTE?: No VTE Risk Level:: Medical - moderate - high VTE Device Contraindication: Treatment Not Indicated VTE Drug Contraindication: N/A - Med Ordered
[2023-12-17 12:10] LABS: Alanine Aminotransferase 47 U/L (0-31); Albumin Level 2.9 g/dL (3.5-5.0); Alkaline Phosphatase 67 U/L (39-117); Aspartate Amino Transferase 125 U/L (5-31); Bilirubin Direct 0.1 mg/dL (0.0-0.5); Bilirubin Total 0.5 mg/dL (0.0-1.0); Total Protein 5.3 g/dL (6.5-8.0)
[2023-12-17 12:11] LABS: INTERNATIONAL NORM RATIO 1.1 (0.9-1.1); Prothrombin Time 13.1 SEC (11.1-13.3)
--- NOTE | 2023-12-17 12:51 | PM.CNNEP ---
History of Present Illness Reason for Consult Consult date: 12/17/23 Chief Complaint Chief complaint: UTI, rhabdo, encephalopathy History of Present Illness Narrative: 73-year-old female with history of lymphedema, hypertension, hyperlipidemia, history of vulvar cancer presented to the ER via EMS after being found by her friend face down on the ground incontinent of urine that was foul smelling and noted right-sided weakness and right facial droop. Apparently he had last seen her around 19:00 last night and normal state of health. Total CK was 2026 with normal renal function at presentation. She was found to have CVA. Inspite of IV fluids, her CK continued to go up. Nephrology has been consulted to assist in her clinical care during her current hospital stay Review of Systems Review of Systems Yes all other systems are reviewed and are negative PMF Past Medical History Medical History History of cancer of vulva Psoriasis Depression Lymphedema due to chronic inflammation Morbid obesity with BMI of 40.0-44.9, adult Restless leg syndrome Vitamin D deficiency Urinary incontinence Smoker COPD (chronic obstructive pulmonary disease) GERD without esophagitis Pure hypercholesterolemia Benign essential hypertension Family History Family History Father No problems noted. Mother Diabetes Sister No problems noted. Sister Breast cancer Brother Kidney malignancy Brother Kidney malignancy Surgical History Surgical History History of vulvectomy Social History Social History Household Members: None Housing: Apartment Do you presently have visiting nurse or other home services: No Unable to assess alcohol history related to: Unable to respond Alcohol intake: current Alcohol intake frequency: holidays/special occasions only Alcohol type: wine Patient Tobacco Use Status: Never used Tobacco Tobacco use type: Cigarette Cigarette Packs Per Day: 0.5 Cigarettes Per Day: 5 e-Cigarette/Vaping Use: Never Used Second Hand Smoke Exposure: Yes service: No Current occupational status: retired 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 Cognitive needs: No Hearing needs: No Vision needs: Yes Meds Allergies Allergy/AdvReac Type Severity Reaction Status Date / Time doxycycline Allergy Unknown Unknown Verified 12/14/23 18:24 prednisone Allergy Unknown Unknown Verified 12/14/23 18:24 Active Medications: Current Medications Acetaminophen (Acetaminophen 325 Mg Tablet) 650 mg PO Q6H PRN PRN Reason: Pain, Mild (Pain Scale 1-3), fever or headache Last Admin: 12/17/23 11:43 Dose: 650 mg Amlodipine Besylate (Amlodipine Besylate 5 Mg Tablet) 5 mg PO DAILY [facility]; Protocol Aspirin (Aspirin Enteric Coated 81 Mg Tablet.Dr) 81 mg PO DAILY [facility] Last Admin: 12/17/23 09:40 Dose: 81 mg Calcium Carbonate (Calcium Carbonate 750 Mg Tab.Chew) 750 mg PO Q4H PRN PRN Reason: Heartburn Clopidogrel Bisulfate (Clopidogrel Bisulfate 75 Mg Tablet) 75 mg PO DAILY [facility] Last Admin: 12/17/23 09:41 Dose: 75 mg Enoxaparin Sodium (Enoxaparin Sodium 40 Mg/0.4 Ml Syringe) 40 mg SUBCUT Q24H [facility] Last Admin: 12/16/23 20:33 Dose: 40 mg Gabapentin (Gabapentin 100 Mg Capsule) 100 mg PO TID [facility] Last Admin: 12/17/23 09:40 Dose: 100 mg Glucose (Glucose Gel 15 Gm Gel..Gram.) 15 gm PO Q15M PRN; Protocol PRN Reason: per Hypoglycemia Standing Ord. Hydrocortisone (Hydrocortisone 1 % Cream 28.35 Gm Tube) 1 appl TOPICAL BID PRN PRN Reason: rash Hydroxyzine HCl (Hydroxyzine Hcl 25 Mg Tablet) 25 mg PO BEDTIME PRN PRN Reason: anxiety Dextrose (D10) 250 mls @ 750 mls/hr IV Q15M PRN; Protocol PRN Reason: per Hypoglycemia Standing Ord. Ceftriaxone Sodium 1 gm/ (Sodium Chloride) 50 mls @ 100 mls/hr IV Q24H [facility] Last Infusion: 12/16/23 21:00 Dose: Infused Lactated Ringer's (Lr) 1,000 mls @ 150 mls/hr IVCONT .Q6H40M [facility] Last Admin: 12/17/23 11:37 Dose: 100 mls/hr Magnesium Hydroxide (Milk Of Magnesia 30 Ml Oral.Susp) 30 ml PO DAILY PRN PRN Reason: Constipation Melatonin (Melatonin 3 Mg Tablet) 6 mg PO BEDTIME PRN PRN Reason: Insomnia Sertraline HCl (Sertraline Hcl 25 Mg Tablet) 25 mg PO DAILY [facility] Last Admin: 12/17/23 09:40 Dose: 25 mg Sodium Chloride (0.9 % Sodium Chloride Flush 3 Ml Syringe) 3 ml IVFLUSH QSHIFT [facility] Last Admin: 12/17/23 09:40 Dose: 3 ml Tramadol HCl (Tramadol Hcl 50 Mg Tablet) 25 mg PO Q6H PRN PRN Reason: Pain, Moderate(Pain Scale 4-6) Last Admin: 12/17/23 09:41 Dose: 25 mg Vitamin D (Cholecalciferol (Vitamin D3) 25 Mcg Tablet) 50 mcg PO DAILY [facility] Last Admin: 12/17/23 09:40 Dose: 50 mcg Physical Exam Vital Signs: Last Vital Signs Temp 97.1 F 12/17/23 10:52 Pulse 63 12/17/23 10:52 Resp 18 12/17/23 10:52 BP 176/78 H 12/17/23 10:52 Pulse Ox 99 12/17/23 10:52 O2 Del Method Room Air 12/17/23 10:52 O2 Flow Rate 3 12/14/23 19:14 Oxygen Flow Rate 2 12/14/23 18:23 BMI result Body Mass Index 31.6 Const General: no acute distress HEENT Head: Yes normocephalic Eyes EOM: EOMs intact bilaterally Resp Auscultation: diminished lung sounds Cardio Rate: regular rate GI Palpation (GI): Soft to palpation Neuro Other: Alert and awake Results Lab Results 12/17/23 07:46 12/17/23 07:46 Lab results: Chemistry 12/14/23 12/15/23 12/16/23 18:44 04:34 06:51 Sodium 140 143 142 Potassium 3.6 3.4 3.9 Carbon Dioxide 24 23 23 BUN 19 H 12 8 L Creatinine 0.64 0.65 0.64 Calcium 8.9 8.6 8.8 12/17/23 07:46 Sodium 141 Potassium 3.6 Carbon Dioxide 24 BUN 9 Creatinine 0.59 Calcium 8.5 Hematology 12/14/23 12/15/23 12/17/23 18:44 04:34 07:46 WBC 10.0 8.8 8.3 Hgb 14.0 12.4 12.0 Plt Count 272 246 248 Urinalysis 12/14/23 18:44 Urine Color Yellow Urine Appearance Cloudy Urine pH 6.0 Ur Specific [place] 1.025 Urine Protein 30 (1+) H Urine Glucose (UA) 250 H Urine Ketones 15 Urine Blood Small (1+) H Urine Nitrite Positive H Ur Leukocyte Esterase Small (1+) H Urine RBC 6-10 H Urine WBC >50 H Ur Squamous Epith Cells 6-10 Hyaline Casts 3-5 Assessment and Plan (1) Rhabdomyolysis: Qualifiers: Rhabdomyolysis type: traumatic Encounter type: sequela Qualified Code(s): T79.6XXS - Traumatic ischemia of muscle, sequela Status: Acute Plan Was found down on the floor Renal function normal; Has H/O CVA Increase IV fluids to 150 mls/ hour No indication for IV NaHCO3 Would use ACEI for BP control once CK improves ( to reduce risk for TAJ - if myoglobinuria goes up & gets ACEI- potential TAJ risk) Can get calcium channel letitia now for HTN Could start statins once CK improves Shall closely follow along Procedures Date of Service Date of Service: 12/17/23
--- NOTE | 2023-12-17 13:52 | MHC.SL.SWA ---
Speech Pathologist Impression: Moderate oropharyngeal dysphagia, minimal risk of Aspiration Risk of Aspiration Due to: Oral motor weakness Reduced Cognition Dyscoordinated respiratory support for sustained voicing Dysphasia Diet Status: Continue liquids to NECTAR THICK, continue on PUREE consistency with pills crushed in puree. Liquid Consistency and Strategies for Safe Swallow: Liquid Intake Recommendation: [place] Thick Liquid Intake Strategies: Small Sips Liquids by cup or straw sips Solid Food Consistency: Dietary Recommendations: Pureed (NDD1) Additional Modifications to Solid Foods: Patient requires 1-1 feed/FULL ASSIST, will need drape of towel for feeding, improvements observed in pt oral containment. Provide liquids by cup primarily, trial straw sips periodically. Oral Medication Intake: Crushed with Puree Please contact the pharmacy regarding appropriate crushable or liquid drug formulations that are available whenever modified delivery is recommended. Compensatory Strategies and Precautions to be Taken for Safe Swallow: Sitting Upright (90 deg) Liquids from Cup Liquids from Straw Small Bites and Sips Alternate Liquids/Solids Rate of Ingestion Change Supervision While Eating and Drinking for Safe Swallow: Total Assistance (1:1) Foods to Avoid: Swallowing Recommended Treatments: Oral Motor Exercises Compens. Strategy Educat. Recommendation for Speech: Inpatient Speech Therapy Comment: Pt presents with moderate dysarthria and dysphagia secondary to weakness and decreased coordination of oral motor musculature. Pt with improved oral containment during functional swallow, tolerated trials of thins without overt s/s of aspiration, though trigger of pharyngeal swallow became more delayed over consecutive swallows. Motor speech production intelligible to 50% d/t decreased coordination of respiratory support for voicing and weakness in oral motor mobility. Pt provided with education on tx plan and possible diet upgrade within the next few days. R facial droop resolving spontaneously. Frequency/Duration: Date Range for Service Req: Timeline to reassess: Record Systems Analyst Clinican/Clinical Fellow: No Supervisory Statement: I have reviewed and agree with the student/clinical fellow's documentation: N/A Speech Language Pathologist: Lynnette Berumen M.S. CCC-BUN MACHINE OPERATOR
[2023-12-17 18:17] LABS: Glucose, Whole Blood 143 mg/dL (60-115)
[2023-12-17] MEDS: cefTRIAXone sodium 1 GM in 0.9 % Sodium Chloride 50 ML IV (21:10)
[2023-12-17] MEDS: Enoxaparin Sodium 40 MG/0.4 ML SYRINGE SUBCUT (21:14)
[2023-12-17] MEDS: Lactated Ringers 1,000 ML 150 ML IVCONT (21:43)
[2023-12-18] VITALS (7 sets, daily range): BP systolic 128–180; BP diastolic 76–88; PULSE 68–88; RESP 18–20; TEMP 36.4–37.6; O2SAT 95–98
[2023-12-18 00:22] LABS: Glucose, Whole Blood 105 mg/dL (60-115)
[2023-12-18] MEDS: traMADoL HCL 50 MG TABLET 25 MG PO ×2 (04:34→18:28)
[2023-12-18] MEDS: Lactated Ringers 1,000 ML 150 ML IVCONT ×2 (05:46→22:00)
[2023-12-18 06:30] LABS: Glucose, Whole Blood 110 mg/dL (60-115)
[2023-12-18] MEDS: Acetaminophen 325 MG TABLET 650 MG PO ×2 (06:55→22:52)
[2023-12-18 06:58] LABS: Glucose, Whole Blood 103 mg/dL (60-115)
[2023-12-18 07:39] LABS: Anion Gap 10 (12-20); Blood Urea Nitrogen 9 mg/dL (9-16); Calcium 8.7 mg/dL (8.4-10.2); Carbon Dioxide 27 mmol/L (22-29); Chloride 105 mmol/L (96-108); Estimated Glomerular Filt Rate > 60; Glucose Random 104 mg/dL (60-115); Potassium 3.7 mmol/L (3.3-5.1); Sodium 138 mmol/L (135-145)
[2023-12-18] MEDS: Gabapentin 100 MG CAPSULE PO ×3 (08:36→22:53)
[2023-12-18] MEDS: Clopidogrel Bisulfate 75 MG TABLET PO (08:36)
[2023-12-18] MEDS: Sertraline HCL 25 MG TABLET PO (08:36)
[2023-12-18] MEDS: Cholecalciferol (Vitamin D3) 25 MCG TABLET 50 MCG PO (08:36)
[2023-12-18] MEDS: Aspirin Enteric Coated 81 MG TABLET.DR PO (08:36)
[2023-12-18] MEDS: amLODIPine Besylate 5 MG TABLET PO (08:36)
[2023-12-18 11:57] LABS: Glucose, Whole Blood 100 mg/dL (60-115)
--- NOTE | 2023-12-18 12:20 | P.PNIM_ITS ---
Subjective Subjective Date of Service: 12/18/23 Interval History: seen and examined this morning follow up for acute stroke, rhabdo overall making progress, speech difficult to understand, Physical Exam 2 Vital Signs: Vital Signs: Last Vital Signs Temp 99.6 F 12/18/23 12:00 Pulse 88 12/18/23 12:00 Resp 20 12/18/23 12:00 BP 171/79 H 12/18/23 12:00 Pulse Ox 95 12/18/23 12:00 O2 Del Method Room Air 12/18/23 12:00 O2 Flow Rate 3 12/14/23 19:14 Oxygen Flow Rate 2 12/14/23 18:23 BMI result Body Mass Index 31.6 Const: General: alert and awake Nutritional Appearance: overweight Resp: Effort & Inspection: normal respiratory effort, able to speak in complete sentences, no respiratory distress and no use of accessory muscles A uscultation: clear to auscultation bilaterally Cardio: Rate: regular rate GI: Inspection: No distended Palpation (GI): Soft to palpation and nontender Skin: Other: erythema anterior right jerez corresponding to area of pressure where she crosses her left leg over right, no warmth to suggest infection Neuro: Other: able to move left extremities; RLE weakness; RUE with spacticity; persistent right facial droop Extrem: General: Yes no pedal edema Objective Data Active Medications Acetaminophen (Acetaminophen 325 Mg Tablet) 650 mg PO Q6H PRN PRN Reason: Pain, Mild (Pain Scale 1-3), fever or headache Last Admin: 12/18/23 06:55 Dose: 650 mg Documented By: FARHANA Amlodipine Besylate (Amlodipine Besylate 5 Mg Tablet) 5 mg PO DAILY [facility]; Protocol Last Admin: 12/18/23 08:36 Dose: 5 mg Documented By: FERNANDO Aspirin (Aspirin Enteric Coated 81 Mg Tablet.Dr) 81 mg PO DAILY [facility] Last Admin: 12/18/23 08:36 Dose: 81 mg Documented By: FERNANDO Calcium Carbonate (Calcium Carbonate 750 Mg Tab.Chew) 750 mg PO Q4H PRN PRN Reason: Heartburn Clopidogrel Bisulfate (Clopidogrel Bisulfate 75 Mg Tablet) 75 mg PO DAILY [facility] Last Admin: 12/18/23 08:36 Dose: 75 mg Documented By: FERNANDO Enoxaparin Sodium (Enoxaparin Sodium 40 Mg/0.4 Ml Syringe) 40 mg SUBCUT Q24H [facility] Last Admin: 12/17/23 21:14 Dose: 40 mg Documented By: FARHANA Gabapentin (Gabapentin 100 Mg Capsule) 100 mg PO TID [facility] Last Admin: 12/18/23 08:36 Dose: 100 mg Documented By: FERNANDO Glucose (Glucose Gel 15 Gm Gel..Gram.) 15 gm PO Q15M PRN; Protocol PRN Reason: per Hypoglycemia Standing Ord. Hydrocortisone (Hydrocortisone 1 % Cream 28.35 Gm Tube) 1 appl TOPICAL BID PRN PRN Reason: rash Hydroxyzine HCl (Hydroxyzine Hcl 25 Mg Tablet) 25 mg PO BEDTIME PRN PRN Reason: anxiety Dextrose (D10) 250 mls @ 750 mls/hr IV Q15M PRN; Protocol PRN Reason: per Hypoglycemia Standing Ord. Ceftriaxone Sodium 1 gm/ (Sodium Chloride) 50 mls @ 100 mls/hr IV Q24H [facility] Last Infusion: 12/17/23 21:40 Dose: Infused Documented By: FARHANA Lactated Ringer's (Lr) 1,000 mls @ 150 mls/hr IVCONT .Q6H40M [facility] Last Admin: 12/18/23 05:46 Dose: 150 mls/hr Documented By: ANTOIC Magnesium Hydroxide (Milk Of Magnesia 30 Ml Oral.Susp) 30 ml PO DAILY PRN PRN Reason: Constipation Melatonin (Melatonin 3 Mg Tablet) 6 mg PO BEDTIME PRN PRN Reason: Insomnia Sertraline HCl (Sertraline Hcl 25 Mg Tablet) 25 mg PO DAILY [facility] Last Admin: 12/18/23 08:36 Dose: 25 mg Documented By: FERNANDO Sodium Chloride (0.9 % Sodium Chloride Flush 3 Ml Syringe) 3 ml IVFLUSH QSHIFT [facility] Last Admin: 12/18/23 08:37 Dose: Not Given Documented By: FERNANDO Non-Admin Reason: IV Running Tramadol HCl (Tramadol Hcl 50 Mg Tablet) 25 mg PO Q6H PRN PRN Reason: Pain, Moderate(Pain Scale 4-6) Last Admin: 12/18/23 04:34 Dose: 25 mg Documented By: FARHANA Vitamin D (Cholecalciferol (Vitamin D3) 25 Mcg Tablet) 50 mcg PO DAILY [facility] Last Admin: 09/14/24 08:36 Dose: 50 mcg Documented By: FERNANDO Labs 12/17/23 07:46 12/18/23 06:37 Labs: Laboratory Results - last 24 hr 12/17/23 12/18/23 12/18/23 18:13 00:17 06:26 Hold Purple Top Anion Gap Estim Creat Clear Calc Estimated GFR POC Glucose 143 H 105 110 Random Glucose Calcium Total Creatine Kinase 12/18/23 12/18/23 12/18/23 06:37 06:52 11:53 Hold Purple Top SEE NOTE Anion Gap 10 L Estim Creat Clear Calc 78.0 Estimated GFR > 60 POC Glucose 103 100 Random Glucose 104 Calcium 8.7 Total Creatine Kinase 3755 H Assessment and Plan (1) Sepsis secondary to UTI: Status: Acute (2) CVA (cerebral vascular accident): Status: Acute (3) Rhabdomyolysis: Status: Acute Plan 73-year-old female with history of lymphedema, chronic bilateral lower extremity weakness, hypertension, hyperlipidemia, GERD, COPD not on home O2, restless legs syndrome with history of vulvar cancer admitted for further management of acute metabolic encephalopathy with UTI, rhabdomyolysis, and concern for acute CVA Right sided weakness/facial droop/aphasia due to acute CVA LKWT 7pm 12/12. Was outside window for TNK. NIHSS on admission [address] negative for acute intracranial abnormality but shows extensive chronic white matter microangiopathic with scattered presumed chronic age-indeterminate infarcts in the basal ganglia, yan radiata and corpus callosum with diffuse brain parenchymal volume loss. though final radiology read is pending. CTA head/neck negative for hemodynamically significant stenosis or large vessel occlusion MRI - acute infarct of the left yan radiata, posterior limb of the left internal capsule and left lentiform nucleus. No evidence of hemorrhagic transformation continue 81 mg daily, plavix lipid profile shows LDL 120. 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 - pureed diet with one-to-one full assist echo -hyperdynamic EF, moderate septal asymmetric hypertrophy with increased tone RUE ?radial nerve palsy -fitted with orthosis by OT cramping rle - started on gabapentin per neuro rec, can titrate prn EEG pending, no obvious seizure activity noted #Acute UTI with acute metabolic encephalopathy and sepsis Lactic acidosis due to rhabdo/hypoperfusion, not severe sepsis Urine culture growing E coli - IV ceftriaxone (initiated 12/13) # acute rhabdomyolysis- due to reported 15 hour down time -CPK trending down Renal function remains normal continue IVF nephro consult # elevated troponin likely from high cpk -no chest pain, EKG without acute ischemic changes. Trope 44 -->50 -doubt ACS, likely related to rhabdo -monitor on telemery # acute hypoglycemia-resolved on admission POC per EMS 33, received IV dextrose. On arrival glucose 156 no history of diabetes, likely related to infection monitor POC, hypoglycemic protocol in place no further episodes of hypoglycemia # hypertension initially antihypertensives on hold for permissive hypertension in the setting of acute stroke Lisinopril resumed, monitor blood pressure closely, up titrate as needed # mood disorder -continue zoloft # COPD -no exacerbation, albuterol p.r.n. # RLS Unclear if patient was still taking gabapentin, not confirmed on med reconciliation, being resumed due to above cramping/spasticity resumed home dose of tramadol at lower dose, can up titrate prn DVT prophylaxis- lovenox Full code Requires ongoing inpt stay due to CVA with ongoing significant deficits, iv abx due to uti, IVF for persistent rhabdo Quality Stroke Does the patient have a stroke diagnosis?: Yes Reason for No Anti-thrombotic by Day Two: Drug treatment not indicated VTE Prior VTE?: No VTE Risk Level:: Medical - moderate - high VTE Device Contraindication: Treatment Not Indicated VTE Drug Contraindication: N/A - Med Ordered
[2023-12-18 16:35] LABS: Glucose, Whole Blood 103 mg/dL (60-115)
[2023-12-18] MEDS: cefTRIAXone sodium 1 GM in 0.9 % Sodium Chloride 50 ML IV (19:48)
[2023-12-18] MEDS: HYDROmorphone HCl 1 MG/ML SYRINGE 0.8 MG IVPUSH (19:49)
[2023-12-18 21:46] LABS: Glucose, Whole Blood 95 mg/dL (60-115)
[2023-12-18] MEDS: Enoxaparin Sodium 40 MG/0.4 ML SYRINGE SUBCUT (22:53)
[2023-12-18] MEDS: 0.9 % Sodium Chloride Flush 3 ML SYRINGE IVFLUSH (22:54)
[2023-12-19] MEDS: traMADoL HCL 50 MG TABLET 25 MG PO ×3 (01:56→18:03)
[2023-12-19 03:37] VITALS: BP 139/70; PULSE 67; RESP 20; TEMP 36.3; O2SAT 93
[2023-12-19] MEDS: Lactated Ringers 1,000 ML 150 ML IVCONT ×2 (03:53→10:41)
[2023-12-19 04:19] LABS: Glucose, Whole Blood 84 mg/dL (60-115)
[2023-12-19 07:05] VITALS: BP 166/64; PULSE 74; RESP 20; TEMP 37.1; O2SAT 95
[2023-12-19 09:12] LABS: Anion Gap 11 (12-20); Blood Urea Nitrogen 11 mg/dL (9-16); Calcium 8.7 mg/dL (8.4-10.2); Carbon Dioxide 23 mmol/L (22-29); Chloride 109 mmol/L (96-108); Creatinine Clr Calc Pharmacy 74.2; Estimated Glomerular Filt Rate > 60; Glucose Random 94 mg/dL (60-115); Potassium 4.1 mmol/L (3.3-5.1); Sodium 139 mmol/L (135-145)
[2023-12-19 10:06] LABS: Glucose, Whole Blood 108 mg/dL (60-115)
[2023-12-19] MEDS: Clopidogrel Bisulfate 75 MG TABLET PO (10:42)
[2023-12-19] MEDS: Aspirin Enteric Coated 81 MG TABLET.DR PO (10:42)
[2023-12-19] MEDS: Cholecalciferol (Vitamin D3) 25 MCG TABLET 50 MCG PO (10:43)
[2023-12-19] MEDS: Sertraline HCL 25 MG TABLET PO (10:43)
[2023-12-19] MEDS: Gabapentin 100 MG CAPSULE PO ×3 (10:44→21:49)
[2023-12-19 10:45] VITALS: BP 162/73
[2023-12-19] MEDS: amLODIPine Besylate 5 MG TABLET PO (10:45)
--- NOTE | 2023-12-19 11:05 | P.PNIM_ITS ---
Subjective Subjective Date of Service: 12/19/23 Interval History: seen and examined this morning follow up for acute stroke, rhabdo overall making progress, speech difficult to understand, c/o some pain in the right knee Physical Exam 2 Vital Signs: Vital Signs: Last Vital Signs Temp 98.7 F 12/19/23 07:05 Pulse 74 12/19/23 07:05 Resp 20 12/19/23 07:05 BP 162/73 H 12/19/23 10:45 Pulse Ox 95 12/19/23 07:05 O2 Del Method Room Air 12/19/23 07:05 O2 Flow Rate 3 12/14/23 19:14 Oxygen Flow Rate 2 12/14/23 18:23 BMI result Body Mass Index 31.6 General: AO X 2, no acute distress Resp: CTA bilateral CVS: S1,S2,RRR GI: +BS, NT, no distention Skin: No rash MSK: right knee no swelling, no redness Neuro: motor grossly intact Psych: appropriate affect Objective Data Active Medications Acetaminophen (Acetaminophen 325 Mg Tablet) 650 mg PO Q6H PRN PRN Reason: Pain, Mild (Pain Scale 1-3), fever or headache Last Admin: 12/18/23 22:52 Dose: 650 mg Documented By: FARHANA Amlodipine Besylate (Amlodipine Besylate 5 Mg Tablet) 5 mg PO DAILY [facility]; Protocol Last Admin: 12/19/23 10:45 Dose: 5 mg Documented By: SATHYA Aspirin (Aspirin Enteric Coated 81 Mg Tablet.Dr) 81 mg PO DAILY [facility] Last Admin: 12/19/23 10:42 Dose: 81 mg Documented By: SATHYA Calcium Carbonate (Calcium Carbonate 750 Mg Tab.Chew) 750 mg PO Q4H PRN PRN Reason: Heartburn Clopidogrel Bisulfate (Clopidogrel Bisulfate 75 Mg Tablet) 75 mg PO DAILY [facility] Last Admin: 12/19/23 10:42 Dose: 75 mg Documented By: SATHYA Enoxaparin Sodium (Enoxaparin Sodium 40 Mg/0.4 Ml Syringe) 40 mg SUBCUT Q24H [facility] Last Admin: 12/18/23 22:53 Dose: 40 mg Documented By: FARHANA Gabapentin (Gabapentin 100 Mg Capsule) 100 mg PO TID [facility] Last Admin: 12/19/23 10:44 Dose: 100 mg Documented By: SATHYA Glucose (Glucose Gel 15 Gm Gel..Gram.) 15 gm PO Q15M PRN; Protocol PRN Reason: per Hypoglycemia Standing Ord. Hydrocortisone (Hydrocortisone 1 % Cream 28.35 Gm Tube) 1 appl TOPICAL BID PRN PRN Reason: rash Hydroxyzine HCl (Hydroxyzine Hcl 25 Mg Tablet) 25 mg PO BEDTIME PRN PRN Reason: anxiety Dextrose (D10) 250 mls @ 750 mls/hr IV Q15M PRN; Protocol PRN Reason: per Hypoglycemia Standing Ord. Ceftriaxone Sodium 1 gm/ (Sodium Chloride) 50 mls @ 100 mls/hr IV Q24H [facility] Last Infusion: 12/18/23 20:18 Dose: Infused Documented By: FARHANA Magnesium Hydroxide (Milk Of Magnesia 30 Ml Oral.Susp) 30 ml PO DAILY PRN PRN Reason: Constipation Melatonin (Melatonin 3 Mg Tablet) 6 mg PO BEDTIME PRN PRN Reason: Insomnia Sertraline HCl (Sertraline Hcl 25 Mg Tablet) 25 mg PO DAILY [facility] Last Admin: 12/19/23 10:43 Dose: 25 mg Documented By: SATHYA Sodium Chloride (0.9 % Sodium Chloride Flush 3 Ml Syringe) 3 ml IVFLUSH QSHIFT [facility] Last Admin: 12/19/23 10:41 Dose: Not Given Documented By: SATHYA Non-Admin Reason: IV Running Tramadol HCl (Tramadol Hcl 50 Mg Tablet) 25 mg PO Q6H PRN PRN Reason: Pain, Moderate(Pain Scale 4-6) Last Admin: 12/19/23 10:45 Dose: 25 mg Documented By: SATHYA Vitamin D (Cholecalciferol (Vitamin D3) 25 Mcg Tablet) 50 mcg PO DAILY [facility] Last Admin: 12/19/23 10:43 Dose: 50 mcg Documented By: SATHYA Labs 12/17/23 07:46 12/19/23 08:05 Labs: Laboratory Results - last 24 hr 12/18/23 12/18/23 12/18/23 11:53 16:31 21:42 Anion Gap Estim Creat Clear Calc Estimated GFR POC Glucose 100 103 95 Random Glucose Calcium Total Creatine Kinase 12/19/23 12/19/23 12/19/23 04:14 08:05 09:53 Anion Gap 11 L Estim Creat Clear Calc 74.2 Estimated GFR > 60 POC Glucose 84 108 Random Glucose 94 Calcium 8.7 Total Creatine Kinase 2443 H Assessment and Plan (1) Sepsis secondary to UTI: Status: Acute (2) CVA (cerebral vascular accident): Status: Acute (3) Rhabdomyolysis: Status: Acute Plan 73-year-old female with history of lymphedema, chronic bilateral lower extremity weakness, hypertension, hyperlipidemia, GERD, COPD not on home O2, restless legs syndrome with history of vulvar cancer admitted for further management of acute metabolic encephalopathy with UTI, rhabdomyolysis, and concern for acute CVA Right sided weakness/facial droop/aphasia due to acute CVA LKWT 7pm 12/12. Was outside window for TNK. NIHSS on admission [address] negative for acute intracranial abnormality but shows extensive chronic white matter microangiopathic with scattered presumed chronic age-indeterminate infarcts in the basal ganglia, yan radiata and corpus callosum with diffuse brain parenchymal volume loss. though final radiology read is pending. CTA head/neck negative for hemodynamically significant stenosis or large vessel occlusion MRI - acute infarct of the left yan radiata, posterior limb of the left internal capsule and left lentiform nucleus. No evidence of hemorrhagic transformation continue 81 mg daily, plavix 75 mg daily lipid profile shows LDL 120. 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 - pureed diet with one-to-one full assist echo -hyperdynamic EF, moderate septal asymmetric hypertrophy with increased tone RUE ?radial nerve palsy -fitted with orthosis by OT cramping rle - started on gabapentin per neuro rec, can titrate prn EEG pending, no obvious seizure activity noted #Acute UTI with acute metabolic encephalopathy and sepsis Lactic acidosis due to rhabdo/hypoperfusion, not severe sepsis Urine culture growing E coli - IV ceftriaxone (initiated 12/13) # acute rhabdomyolysis- due to reported 15 hour down time -CPK trending down Renal function remains normal continue IVF nephro consult # elevated troponin likely from high cpk -no chest pain, EKG without acute ischemic changes. Trope 44 -->50 -doubt ACS, likely related to rhabdo -monitor on telemery # acute hypoglycemia-resolved on admission POC per EMS 33, received IV dextrose. On arrival glucose 156 no history of diabetes, likely related to infection monitor POC, hypoglycemic protocol in place no further episodes of hypoglycemia # hypertension initially antihypertensives on hold for permissive hypertension in the setting of acute stroke Lisinopril resumed, monitor blood pressure closely, up titrate as needed # mood disorder -continue zoloft # COPD -no exacerbation, albuterol p.r.n. # RLS Unclear if patient was still taking gabapentin, not confirmed on med reconciliation, being resumed due to above cramping/spasticity resumed home dose of tramadol at lower dose, can up titrate prn #knee pain--susppect OA, tylneol and tramadol PRN DVT prophylaxis- lovenox Full code Requires ongoing inpt stay due to CVA with ongoing significant deficits, iv abx due to uti, IVF for persistent rhabdo Quality Stroke Does the patient have a stroke diagnosis?: Yes Reason for No Anti-thrombotic by Day Two: Drug treatment not indicated VTE Prior VTE?: No VTE Risk Level:: Medical - moderate - high VTE Device Contraindication: Treatment Not Indicated VTE Drug Contraindication: N/A - Med Ordered
[2023-12-19 11:49] VITALS: BP 151/82; PULSE 79; RESP 18; TEMP 36.4; O2SAT 96
[2023-12-19 15:53] VITALS: BP 151/69; PULSE 74; RESP 18; TEMP 37.2; O2SAT 95
[2023-12-19 17:22] LABS: Glucose, Whole Blood 93 mg/dL (60-115)
[2023-12-19 19:44] VITALS: BP 151/70; PULSE 78; RESP 18; TEMP 36.7; O2SAT 94
[2023-12-19] MEDS: Melatonin 3 MG TABLET 6 MG PO (21:49)
[2023-12-19] MEDS: Enoxaparin Sodium 40 MG/0.4 ML SYRINGE SUBCUT (21:49)
[2023-12-19] MEDS: cefTRIAXone sodium 1 GM in 0.9 % Sodium Chloride 50 ML IV (21:49)
[2023-12-19 22:25] LABS: Glucose, Whole Blood 94 mg/dL (60-115)
[2023-12-20] VITALS: BP 157/73; PULSE 70; RESP 20; TEMP 36.6; O2SAT 95
--- NOTE | 2023-12-20 | EEG_ITS ---
FINDINGS: Waking background activity consists of a diffuse, 5 to 6 hertz theta, intermixed with low-voltage fast frequencies anteriorly. Frequent bitemporal muscle artifacts are seen. Hyperventilation was omitted. Photic stimulation produces no change. IMPRESSION: This is an abnormal EEG due to diffuse background slowing consistent with a diffuse encephalopathic process. No epileptiform discharges are seen. MD ANNALEE Lester/MILTON / [id number]
[2023-12-20] MEDS: 0.9 % Sodium Chloride Flush 3 ML SYRINGE IVFLUSH ×3 (00:01→15:18)
[2023-12-20 03:48] VITALS: BP 160/72; PULSE 78; RESP 20; TEMP 36.3; O2SAT 94
[2023-12-20 04:12] LABS: Glucose, Whole Blood 97 mg/dL (60-115)
[2023-12-20 07:01] LABS: Anion Gap 9 (12-20); Blood Urea Nitrogen 11 mg/dL (9-16); Calcium 8.7 mg/dL (8.4-10.2); Carbon Dioxide 27 mmol/L (22-29); Chloride 107 mmol/L (96-108); Creatinine Clr Calc Pharmacy 75.4; Estimated Glomerular Filt Rate > 60; Glucose Random 99 mg/dL (60-115); Potassium 3.9 mmol/L (3.3-5.1); Sodium 139 mmol/L (135-145)
[2023-12-20 07:47] VITALS: BP 144/62; PULSE 73; RESP 18; TEMP 36.3; O2SAT 96
[2023-12-20] MEDS: Aspirin Enteric Coated 81 MG TABLET.DR PO (09:35)
[2023-12-20] MEDS: Gabapentin 100 MG CAPSULE PO ×2 (09:35→15:16)
[2023-12-20] MEDS: amLODIPine Besylate 5 MG TABLET PO (09:35)
[2023-12-20] MEDS: Clopidogrel Bisulfate 75 MG TABLET PO (09:35)
[2023-12-20] MEDS: Sertraline HCL 25 MG TABLET PO (09:36)
[2023-12-20] MEDS: Cholecalciferol (Vitamin D3) 25 MCG TABLET 50 MCG PO (09:36)
[2023-12-20] MEDS: traMADoL HCL 50 MG TABLET 25 MG PO (09:36)
[2023-12-20 10:02] LABS: Glucose, Whole Blood 144 mg/dL (60-115)
[2023-12-20 11:10] VITALS: BP 163/73; PULSE 81; RESP 18; TEMP 36.6; O2SAT 96
--- NOTE | 2023-12-20 11:34 | PM.DS ---
DS: Providers Provider Date of Service: 12/20/23 Date of admission: 12/14/23 20:24 Primary care physician: Audi Woods MD Consults: 12/14/23 20:52 Consult to Neurology Routine Consulting Provider: [facility] Reason for consultation: ?cva 12/15/23 20:13 Consult to Wound Care Routine Reason for consultation: fungal rash and masd to buttocks, bruise to R post shoulder and R face. 12/17/23 11:18 Consult to Nephrology Routine Consulting Provider: [facility] Reason for consultation: rhabdo - not resolving with IVF Has provider been notified: No DS: Diagnosis Discharge Diagnosis (1) Sepsis secondary to UTI: Status: Acute (2) CVA (cerebral vascular accident): Status: Acute (3) Rhabdomyolysis: Status: Acute DS: Summary Hospital Course Hospital Course: admission hpi Chief Complaint: found on ground incontinent of urine 73-year-old female with history of lymphedema, chronic bilateral lower extremity weakness, hypertension, hyperlipidemia, GERD, COPD not on home O2, restless legs syndrome with history of vulvar cancer presented to the ED via EMS after being found by her friend face down on the ground incontinent of urine that was foul smelling and noted right-sided weakness and right facial droop. Apparently he had last seen her around 19:00 last night and normal state of health. On EMS arrival, POC was 33 and received dextrose. One exam, patient is oriented to self and place, but mumbling speech very lethargic and generally weak, worse on the right side with right sided facial droop. Right side of face is swollen including eye with mild erythema. She is mildly tachycardic around 100 and slightly hypertensive at. No fevers. No leukocytosis. Renal function normal, electrolyte levels normal except for chloride 110. Random glucose on arrival 153. Lactic acid 2.4. Total CK 2027, troponin 44. Urinalysis indicative of infection with 1+ leukocytes, positive nitrites, 1+ blood, positive urinary sediment, 4+ bacteria. There is also 1+ protein and glucosuria. Negative for COVID-19. Chest x-ray shows bronchial wall thickening possibly infectious versus inflammatory. Head CT and cervical spine CT remain pending but appear to be negative for any acute intracranial or osseous abnormality. In the ED, has received 1 L IV NS and 1 g ceftriaxone. Hospital course: #Acute CVA The patient presented with right-sided weakness, facial droop, and aphasia. The last known well time (LKWT) was outside the window for thrombolytic therapy. On admission, the NIHSS score was 13. A head CT was negative for acute intracranial abnormalities but showed extensive chronic white matter microangiopathy with scattered presumed chronic, age-indeterminate infarcts in the basal ganglia, yan radiata, and corpus callosum, along with diffuse brain parenchymal volume loss. A CTA of the head and neck was negative for hemodynamically significant stenosis or large vessel occlusion. An MRI revealed an acute infarct of the left yan radiata, posterior limb of the left internal capsule, and left lentiform nucleus, with no evidence of hemorrhagic transformation. Neurology was consulted and recommended aspirin 81 mg daily and Plavix 75 mg daily. The lipid profile showed an LDL of 120, but statin therapy is on hold due to a history of rhabdomyolysis. PT/OT recommended acute rehabilitation, and UNIFORM ROOM ATTENDANT recommended a pureed diet with one-to-one full assistance. An echocardiogram showed a hyperdynamic EF and moderate septal asymmetric hypertrophy. The patient was noted to have increased tone in the right upper extremity, possibly related to radial nerve palsy, and was fitted with an orthosis by OT. The patient also experienced cramping in the right lower extremity and was started on gabapentin per neurology's recommendation, with the option to titrate as needed. EEG is done, result pending, and no obvious seizure activity has been noted. #Acute UTI with acute metabolic encephalopathy and sepsis Lactic acidosis due to rhabdo/hypoperfusion, not severe sepsis Urine culture growing E coli - IV ceftriaxone (initiated 12/13) and will treat with ceftin for 2 more days # acute rhabdomyolysis- due to reported 15 hour down time--CPK level peaked at 4866 and has been treated with IVF and is trending down to presently 1762. Statin should be avoided until CPK is within normal range. Renal function has been normal # elevated troponin likely from high cpk -no chest pain, EKG without acute ischemic changes. Trope 44 -->50 -doubt ACS, likely related to rhabdo -monitor on telemery # acute hypoglycemia-resolved on admission POC per EMS 33, received IV dextrose. On arrival glucose 156 no history of diabetes, likely related to uti monitor POC, hypoglycemic protocol in place no further episodes of hypoglycemia # hypertension initially antihypertensives on hold for permissive hypertension in the setting of acute stroke Lisinopril resumed and Norvasc 5 mg daily added # mood disorder -continue zoloft # COPD -no exacerbation, albuterol p.r.n. # restless leg syndrome Unclear if patient was still taking gabapentin, not confirmed on med reconciliation, being resumed due to above cramping/spasticity resumed home dose of tramadol #knee pain--susppect OA, tylneol and tramadol PRN Time Attestation Discharge Coordination Time (in mins): 45 Quality: Safe Use of Opioids Does Pt have an Active Cancer Diagnosis on the Problem List?: No Quality: Stroke Does the patient have a stroke diagnosis?: Yes Reason for No Anti-thrombotic at DC: N/A - Med Ordered Reason for No Anticoagulant at DC: Drug treatment not indicated Reason Not Initiating IV-Tpa: Contraindicated Reason for No Anti-thrombotic by Day Two: N/A - Med Ordered Reason for No Statin at DC: Contraindicated (due to High CPK) Physical Exam Vital Signs: Vital Signs: Last Vital Signs Temp 97.8 F 12/20/23 11:10 Pulse 81 12/20/23 11:10 Resp 18 12/20/23 11:10 BP 144/62 H 12/20/23 07:47 Pulse Ox 96 12/20/23 11:10 O2 Del Method Room Air 12/20/23 11:10 O2 Flow Rate 3 12/14/23 19:14 Oxygen Flow Rate 2 12/14/23 18:23 BMI result Body Mass Index 31.6 DS: Data Data Completed and Pending Labs on day of discharge: Laboratory Results - last 24 hr 12/19/23 12/19/23 12/20/23 17:19 22:19 03:54 Sodium Potassium Chloride Carbon Dioxide Anion Gap BUN Creatinine Estim Creat Clear Calc Estimated GFR POC Glucose 93 94 97 Random Glucose Calcium Total Creatine Kinase 12/20/23 12/20/23 05:53 09:58 Sodium 139 Potassium 3.9 Chloride 107 Carbon Dioxide 27 Anion Gap 9 L BUN 11 Creatinine 0.60 Estim Creat Clear Calc 75.4 Estimated GFR > 60 POC Glucose 144 H Random Glucose 99 Calcium 8.7 Total Creatine Kinase 1762 H Discharge Plan Discharge Anticipated Discharge Date/Time: 12/20/23 11:28 Patient Disposition: Xfer SNF Discharge Diagnosis: acute cva, uti, rhabdomylosis Referrals: [facility] [Outside] - 1 Week Audi Woods MD [Primary Care Provider] - 1 Week Discharge Medications: New clopidogrel 75 mg Tablet 75 mg PO DAILY Qty: 30 0RF amlodipine 5 mg Tablet 5 mg PO DAILY Qty: 30 0RF Protocol: Hold for SBP< HOLD for SBP < : 90 aspirin 81 mg Tablet,Delayed Release (Dr/Ec) 81 mg PO DAILY Qty: 30 0RF cefuroxime axetil 250 mg tablet 250 mg PO BID Qty: 4 0RF Rx Instructions: starting with evening dose Continued hydroxyzine HCl 25 mg tablet 25 mg PO BEDTIME PRN (Reason: anxiety) Qty: 30 1RF lisinopril 20 mg tablet 20 mg PO DAILY 90 Days Qty: 90 3RF sertraline 25 mg tablet 25 mg PO DAILY Qty: 30 2RF hydrocortisone 2.5 % cream 1 appl topical BID PRN (Reason: rash) Qty: 30 0RF tramadol 50 mg tablet 50 mg PO Q6H PRN (Reason: pain) 15 Days Qty: 60 0RF cholecalciferol (vitamin D3) 50 mcg (2,000 unit) capsule 50 mcg PO DAILY 90 Days Qty: 90 3RF Changed gabapentin 100 mg capsule 100 mg PO TID Qty: 90 1RF Discontinued atorvastatin 20 mg tablet 20 mg PO DAILY 30 Days Qty: 30 1RF triamcinolone acetonide 0.1 % cream 1 appl topical DAILY PRN (Reason: rash) Qty: 30 3RF Discharge Orders: Discharge Order (Routine); Ordered 12/20/23 Ordered By: Noe Read Diet: puree, nectar thick Activity on Discharge: As tolerated Stand Alone Forms: Patient Portal Discharge page Print Language: Maldivian Care Plan Goals: recovery from stroke, uti and rhabdomylosis Health Concerns: stroke uti rhabdomylosis Plan of Treatment: To rehab take all medication as above Check CPK in 2 days, once CPK is in normal range, restart statin (Lipitor 40 mg daily) Assessment: see above
--- NOTE | 2023-12-20 11:40 | MHC.CM.PN ---
Addendum entered by Brooke Farmer 12/20/23 11:46: Pts primary contact/sister Aleida was called and notified of her discharge today. Original Note: Second IMM given 12/19. Pt is medically cleared for discharge to acute rehab today at [facility]. Pt will transport there via [facility].
== END 2023-12-20 15:44 | disposition skilled nursing facility (03) | DRG 871 ==
LOC: HO.ED 18:48 → HO.EDOVER 20:35 → HO.IMC 12-15 06:18
PROVIDERS: Physician Assistant Medical; Student in an Organized Health Care Education/Training Program; Admitting Provider Physician Assistant; Emergency Provider Internal Medicine; PCP Internal Medicine; Visit Provider Internal Medicine
DX: A41.9 Sepsis, unspecified organism (principal); G93.41 Metabolic encephalopathy; I63.9 Cerebral infarction, unspecified; N39.0 Urinary tract infection, site not specified; M62.82 Rhabdomyolysis; R47.01 Aphasia; G81.91 Hemiplegia, unspecified affecting right dominant side; I10 Essential (primary) hypertension; F39 Unspecified mood [affective] disorder; B96.20 Unspecified Escherichia coli [E. coli] as the cause of diseases classified elsewhere; Z20.822 Contact with and (suspected) exposure to COVID-19; M17.11 Unilateral primary osteoarthritis, right knee; R29.709 NIHSS score 9; J44.9 Chronic obstructive pulmonary disease, unspecified; Z85.44 Personal history of malignant neoplasm of other female genital organs; R29.810 Facial weakness; G25.81 Restless legs syndrome; E16.2 Hypoglycemia, unspecified; Z79.899 Other long term (current) drug therapy
CPT/HCPCS: 36415; 70450; 70496; 70498; 70551; 71045; 72125; 80048; 80053; 80061; 80076; 81001; 82550; 82803; 82947; 83605; 84484; 85025; 85027; 85610; 87040; 87086; 87088; 87186; 87635; 92526; 93005; 93306; 93971; 95816; 97110; 97162; 97167; 97530; 99285; C1758; J0696; J1170; J1650; J7120; Q9957; Q9967

== ENCOUNTER 2023-12-14 20:24 | Outpatient (BNV) | payer MEDICARE, SELFPAY | END 2023-12-15 07:00 | PROVIDERS: Admitting Provider Physician Assistant; Emergency Provider Internal Medicine; PCP Internal Medicine; Visit Provider Internal Medicine Cardiovascular Disease | DX: I42.2 Other hypertrophic cardiomyopathy (principal); R93.1 Abnormal findings on diagnostic imaging of heart and coronary circulation | CPT/HCPCS: 93306 ==

== ENCOUNTER → 2023-12-14 20:24 | Outpatient (BNV) | payer MEDICARE, SELFPAY | PROVIDERS: Admitting Provider Physician Assistant; Emergency Provider Internal Medicine; PCP Internal Medicine; Visit Provider Internal Medicine Nephrology | DX: T79.6XXS Traumatic ischemia of muscle, sequela (principal); I69.398 Other sequelae of cerebral infarction | CPT/HCPCS: 99223 ==

== ENCOUNTER → 2023-12-14 20:24 | Outpatient (BNV) | payer MEDICARE, SELFPAY | PROVIDERS: Admitting Provider Physician Assistant; Emergency Provider Internal Medicine; PCP Internal Medicine; Visit Provider Psychiatry & Neurology Neurology | DX: I63.89 Other cerebral infarction (principal) | CPT/HCPCS: 99222 ==

== ENCOUNTER → 2023-12-14 20:24 | Outpatient (BNV) | payer MEDICARE, SELFPAY | PROVIDERS: Admitting Provider Physician Assistant; Emergency Provider Internal Medicine; PCP Internal Medicine; Visit Provider Physician Assistant | DX: A41.9 Sepsis, unspecified organism (principal); N39.0 Urinary tract infection, site not specified; I63.9 Cerebral infarction, unspecified; M62.82 Rhabdomyolysis | CPT/HCPCS: 99223; 99232; 99233; 99239 ==